=== PATIENT | female | born 1940 | race Caucasian/White ===

== ENCOUNTER → 2017-07-02 07:35 | Outpatient (CLI) | payer MEDICARE, SELFPAY ==
--- NOTE | 2017-07-02 07:39 | CT_ITS ---
CT heart w calcium score HISTORY 76 years : chest pain. & Heavy chest sensation COMPARISON: None Technique: All CT scans at this facility use one or more dose reduction techniques, viz.: automated exposure control; ma/kV adjustment per patient size (including targeted exams where dose is matched to indication; i.e. head) or iterative reconstruction technique. FINDINGS: Total Coronary calcium score is 4 indicating minimal plaque burden with low cardiovascular disease risk Specific Coronary artery Calcium scoring as follows\: left main = 0. LAD =4. Left circumflex = 0. RCA = 0. PDA = 0 Only very Limited images submitted of the chest for the calcium score. Calcification the tracheobronchial tree calcified right hilar nodes reflecting old granulomatous disease with calcified nodes subcarinal region reflecting site. Borderline is not cardiomegaly. IMPRESSION: Total coronary calcium score of 4 = low cardiovascular disease risk
--- NOTE | 2017-07-02 07:39 | CA_ITS ---
PROCEDURE: 2-D M-mode and color Doppler study INDICATIONS FOR THE TEST: Chest pain X COPD Heart Murmur Tobacco Smoking PalpitationsX Fatigue Syncope Edema Hypertension Diabetes Mellitus Rheumatic Fever SOB JENSEN Obesity Hyperlipidemia Family History HD Additional History ABN EKG PATIENT INFORMATION HEIGHT: 63 WEIGHT:125 GENDER: Female B/P:150/75 2-D/M-MODE INTERPRETATION: 2-D MEASUREMENTS OBSERVED VALUES IN CMS Right Ventricular Dimension (RVDd) 1.9 Interventricular Septum (Thickness)(IVsd) .8 Left Ventricular Internal Dimensions(LVIDd) 5.1 Left Ventricular Posterior Wall (Thickness)(LVPWd) .8 Aortic Root 2.2 Aortic Cusp Separation 1.4 Left Atrial Dimensions (LAD) 3.0 2D 1. Left atrium is mildly enlarged, left ventricle is normal size, there is mild qualitative concentric left ventricular hypertrophy, visually estimated ejection fraction 55% with no obvious regional wall motion abnormality. 2. The right atrium and right ventricle are normal size and contractility. 3. The aortic valve is minimally thickened and fibrosed. 4. The mitral and tricuspid valve leaflets are minimally thickened. 5. The pulmonic valve is poorly. 6. No significant pericardial effusion noted. DOPPLER INTERROGATION: Doppler interrogation of the aortic, mitral and tricuspid valvular presence of mild mitral and tricuspid regurgitation, tricuspid and jet velocity insufficient for acquisition of the right ventricular systolic pressure, grade 1 diastolic dysfunction seen with tissue Doppler evidence of raised left atrial pressure. CONCLUSION: 1. Mildly enlarged left atrium, normal left ventricular size, mild concentric left ventricular hypertrophy, visually estimated ejection fraction 55% with no obvious regional wall motion abnormality. Grade 1 diastolic dysfunction seen with tissue Doppler evidence of raised left atrial pressure. 2. Mild mitral and tricuspid regurgitation 3. No significant pericardial effusion noted.
== END ==
PROVIDERS: PCP Family Medicine; Visit Provider Internal Medicine Cardiovascular Disease
DX: R07.89 Other chest pain (principal); R00.2 Palpitations
CPT/HCPCS: 75571; 93306

== ENCOUNTER → 2017-07-08 07:13 | Outpatient (CLI) | payer MEDICARE, SELFPAY ==
--- NOTE | 2017-07-08 07:14 | NM_ITS ---
History and Indications: Hypothyroidism, hypertension, shortness of breath and chest pain. Procedure: Patient exercised on Saran protocol 7 minutes, resting heart rate was 63 bpm resting blood pressure 168/73, with exercise maximum heart rate achieved was 1 37 bpm which is equal to 94% of the maximum predicted heart rate and a blood pressure was 192/90. Test was started due to shortness of breath and fatigue patient denied any complained of chest pain. Patient has good exercise capacity achieved 10.1mets of workload on treadmill, the blood pressure response to exercise was adequate. Electrocardiogram: Resting electrocardiogram showed sinus rhythm, with exercise occasional premature ventricular complexes seen, there is less than 1.[address] segment depression noted from the baseline EKG. The EKG portion of the exercise Myoview is negative for ischemia. Cardiac stress and resting SPECT images: Cardiac stress and resting SPECT images were obtained using technetium 99 Myoview 30.7 mCi at stress 10.6 mCi at rest. Gated SPECT further analysis of segmental wall motion and calculation of the ejection fraction also done. Cardiac stress and rest SPECT images show a mild fixed defect anteroseptally with normal contractility in the gated SPECT is likely secondary to soft tissue attenuation, no reversible ischemia seen. Computer derived ejection fraction is over 65% with no obvious regional wall motion abnormality, right ventricle is normal size and contractility. Conclusion: 1. The EKG portion of the exercise Myoview is negative for ischemia. Patient has good exercise capacity achieved 10.1mets of workload on treadmill, the blood pressure response to exercise was adequate, there was no exercise-induced chest discomfort. 2. No obvious scintigraphic evidence of reversible ischemia seen, computer derived ejection fraction is over C5 percent with no obvious regional wall motion abnormality, right ventricle is normal size and contractility. 3. Normal exercise Myoview study.
== END ==
PROVIDERS: PCP Family Medicine; Visit Provider Internal Medicine Cardiovascular Disease
DX: R07.89 Other chest pain (principal); R00.2 Palpitations; R94.31 Abnormal electrocardiogram [ECG] [EKG]; E78.4 Other hyperlipidemia; I10 Essential (primary) hypertension
CPT/HCPCS: 78452; 93017; A9502

== ENCOUNTER → 2018-02-16 14:42 | Outpatient (CLI) | payer MEDICARE, SELFPAY ==
--- NOTE | 2018-02-16 14:49 | NVE_ITS ---
Venous Exam Indications: 729.5 Pain in limb. IMPRESSIONS 1. No evidence of deep vein thrombosis involving the right lower extremity 2. Superficial vein thrombosis involving the right great saphenous vein Right lower extremity venous duplex evaluation. Doppler flow study including spectral analysis, color and aviles scale imaging. Location: Vascular laboratory. Patient status: Outpatient. CRITICAL FINDINGS - Reported to: Dr. Ozuna - Read back and verified. - 02/16/18 - 1515 - + [facility] Tables: Venous flow and imaging: + + + + Location Overall Flow properties + + + + Right common femoral Patent Normal phasicity; spontaneous; normal augmentation; compressible + + + + Right saphenofemoral Patent Compressible junction + + + + Right profunda femoral Patent Compressible + + + + Right femoral Patent Normal phasicity; spontaneous; normal augmentation; compressible + + + + Right greater saphenous Partially occluded Diminished phasicity; diminished spontaneity; diminished augmentation; partially compressible + + + + Right popliteal Patent Normal phasicity; spontaneous; normal augmentation; compressible + + + + Right posterior tibial Patent Compressible + + + + Right peroneal Patent Compressible + + + + Right gastrocnemius Patent Compressible + + + + Right soleal Patent Compressible + + + + (Report amended ) Electronically signed by: Azeem Weinstein [id number]
== END ==
PROVIDERS: PCP Family Medicine; Visit Provider Family Medicine
DX: M79.604 Pain in right leg (principal)
CPT/HCPCS: 93971

== ENCOUNTER → 2018-04-06 08:42 | Outpatient (CLI) | payer MEDICARE, SELFPAY ==
[2018-04-06 14:21] LABS: INR 2.41 (0.9-1.1); Prothrombin Time 24.2 seconds (9.4-11.8)
== END ==
PROVIDERS: PCP Family Medicine; Visit Provider Family Medicine
DX: Z51.81 Encounter for therapeutic drug level monitoring (principal); Z79.01 Long term (current) use of anticoagulants; I82.811 Embolism and thrombosis of superficial veins of right lower extremity
CPT/HCPCS: 36415; 85610

== ENCOUNTER → 2018-05-10 09:16 | Outpatient (CLI) | payer MEDICARE, SELFPAY ==
--- NOTE | 2018-05-10 09:21 | NVE_ITS ---
Venous Exam Indications: 729.5 Pain in limb. IMPRESSIONS 1. There is no evidence of significant Reflux. 2. No evidence of deep or superficial vein thrombosis involving the right lower extremity and left lower extremity Right lower extremity venous duplex evaluation. Doppler flow study including spectral analysis, color and aviles scale imaging. Location: Vascular laboratory. Patient status: Outpatient. Tables: Venous flow and imaging: + +-------+ + Location Overall Flow properties + +-------+ + Right common femoral Patent Normal phasicity; spontaneous; normal augmentation; compressible + +-------+ + Right saphenofemoral junction Patent Compressible + +-------+ + Right profunda femoral Patent Compressible + +-------+ + Right femoral Patent Normal phasicity; spontaneous; normal augmentation; compressible + +-------+ + Right greater saphenous Patent Normal phasicity; spontaneous; normal augmentation; compressible + +-------+ + Right popliteal Patent Normal phasicity; spontaneous; normal augmentation; compressible + +-------+ + Right posterior tibial Patent Compressible + +-------+ + Right peroneal Patent Compressible + +-------+ + Right gastrocnemius Patent Compressible + +-------+ + Right soleal Patent Compressible + +-------+ + (Report amended ) Electronically signed by: Azeem Weinstein [id number]
== END ==
PROVIDERS: PCP Family Medicine; Visit Provider Family Medicine
DX: I82.811 Embolism and thrombosis of superficial veins of right lower extremity (principal); M79.604 Pain in right leg
CPT/HCPCS: 93971

== ENCOUNTER → 2018-08-23 12:33 | Outpatient (POV) | payer MEDICARE, SELFPAY | PROVIDERS: Visit Provider Dermatology | DX: Z00.00 Encounter for general adult medical examination without abnormal findings (principal) ==

== ENCOUNTER → 2018-12-20 10:25 | Outpatient (CLI) | payer MEDICARE, SELFPAY ==
--- NOTE | 2018-12-20 10:33 | CA_ITS ---
APPROVED REPORT Right Lower Extremity Venous Study for DVT. 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 Indications Lower Extremity Pain: Right Vein Imaging CFV (R): compressive, spontaneous, phasic, augmentation SFJ (R): compressive, spontaneous, phasic, augmentation FEM (R): compressive, spontaneous, phasic, augmentation POP (R): compressive, spontaneous, phasic, augmentation DFV (R): compressive, spontaneous, phasic, augmentation PTV (R): compressive, spontaneous, phasic, augmentation GSV (R): compressive, spontaneous, phasic, augmentation SSV (R): compressive, spontaneous, phasic, augmentation Peroneals (R):compressive, spontaneous, phasic, augmentation GAS (R): compressive, spontaneous, phasic, augmentation Findings No evidence of DVT or superficial thrombophlebitis in the veins scanned of the right lower extremity. No valvular insufficiency demonstrated in the veins scanned of the right lower extremity. Conclusion No evidence of DVT or superficial thrombophlebitis in the veins scanned of the right lower extremity. Electronically signed by : Azeem Weinstein MD 12/20/2018 11:16:38
== END ==
PROVIDERS: PCP Family Medicine; Visit Provider Family Medicine
DX: M79.604 Pain in right leg (principal)
CPT/HCPCS: 93971

== ENCOUNTER → 2020-01-09 08:08 | Outpatient (POV) | payer MEDICARE, SELFPAY | PROVIDERS: Visit Provider Dermatology | DX: Z00.00 Encounter for general adult medical examination without abnormal findings (principal) ==

== ENCOUNTER → 2020-07-16 08:11 | Outpatient (POV) | payer MEDICARE, SELFPAY | PROVIDERS: Visit Provider Dermatology | DX: Z00.00 Encounter for general adult medical examination without abnormal findings (principal) ==

== ENCOUNTER → 2020-07-30 14:49 | Outpatient (CLI) | payer MEDICARE, SELFPAY ==
--- NOTE | 2020-07-30 14:57 | MR_ITS ---
PROCEDURE: MR LUMBAR SPINE WO CON CLINICAL INDICATION: SCIATICA, RIGHT SIDE Pain down rt leg. Pain in back for years. Pain just started down leg in the last 3 months. COMPARISON: No exams were available for comparison TECHNIQUE: Standard multiplanar multiecho sequences are performed without contrast. 3-D MIP and myelographic images are also rendered and reviewed FINDINGS: The spinal cord ends at the L1 level. L1-L2: Unremarkable. L2-L3: 2 mm anterolisthesis of L2 with minimal bulging disc and mild facet and ligamentum hypertrophy with mild bilateral lateral recess narrowing. L3-L4: 3 mm anterolisthesis of L3 with bulging disc along with facet and ligamentum hypertrophic change with mild bilateral lateral recess narrowing and bilateral foraminal narrowing. There is borderline canal stenosis. L4-5: 2 mm anterolisthesis of L4. Bulging disc with moderate to severe facet and ligamentum hypertrophic change causing canal stenosis with severe bilateral lateral recess narrowing and mild bilateral foraminal narrowing. L5-S1: Mild facet and ligamentum hypertrophy with mild bilateral foraminal narrowing. No extruded herniated disc. Tarlov cysts are present in the sacral area. IMPRESSION: 1. L2-L3: 2 mm anterolisthesis of L2 with minimal bulging disc and mild facet and ligamentum hypertrophy with mild bilateral lateral recess narrowing. 2. L3-L4: 3 mm anterolisthesis of L3 with bulging disc along with facet and ligamentum hypertrophic change with mild bilateral lateral recess narrowing and bilateral foraminal narrowing. There is borderline canal stenosis. 3. L4-5: 2 mm anterolisthesis of L4. Bulging disc with moderate to severe facet and ligamentum hypertrophic change causing canal stenosis with severe bilateral lateral recess narrowing and mild bilateral foraminal narrowing. 4. L5-S1: Mild facet and ligamentum hypertrophy with mild bilateral foraminal narrowing. 5. No extruded herniated disc. Dictated by: Azeem Weinstein MD 07/31/2020 10:22 Azeem Weinstein MD in [facility] 07/31/2020 10:22
== END ==
PROVIDERS: PCP Family Medicine; Visit Provider Family Medicine
DX: M54.31 Sciatica, right side (principal)
CPT/HCPCS: 72148; 76376

== ENCOUNTER → 2020-09-24 13:11 | Outpatient (POV) | payer MEDICARE, SELFPAY | PROVIDERS: Visit Provider Dermatology | DX: Z00.00 Encounter for general adult medical examination without abnormal findings (principal) ==

== ENCOUNTER 2020-10-23 09:00 | Outpatient (RCR) | payer MEDICARE, SELFPAY ==
--- NOTE | 2020-05-13 10:02 | HMH.PTOPEV ---
PT Outpatient Evaluation Rehab PT Outpatient Evaluation Start: 05/13/20 09:30 Freq: Status: Active Protocol: Document 05/13/20 09:30 PDESEROUX (Rec: 05/13/20 10:02 [email or web address] [id number]) Electronically Signed By Aden Leung, PT 05/13/20 09:30 Outpatient Therapy Subjective History Subjective History Pt. is a 79 year old female who presents to Outpatient PT clinic w/ complaints of constant and chronic RLE posterior buttock P! of insidious onset for one year now. Pt. also reports having intermittent RLE radicular symptoms. Pt. reports symptoms worsen w/ prolonged sitting from driving and reading. Pt. reports having some symptom relief w/ OTC Advil and standing. Pt. denies having an injection for current pathology and denies having recent diagnostic imaging. 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 Pt. denies having bowel/bladder dysfunction and denies symptoms into LLE. Current medications include Amlodipine and Synthroid. PMH includes GERD, Hypertension, Hypothyroidism, dental implants, and history of DVT( RLE). Chief Complaint Pain,Paresthesia,Weakness Symptom Type Ache,Sharp,Dull Symptoms Relieved By OTC Meds,Activity Symptoms Aggravated By Sitting,Bending/Stooping, Physical Activity,Twisting, Lifting Prior Functional Limitations None Current Functional Limitations Lifting,Housework,Desk Work/ Reading,Driving,Sleeping, Sitting,Recreation Activity, Bending/Stooping Symptom Description Constant but Variable Level of pain today (0-10) 6 Pain scale - at its best (0-10) 4 Pain scale - at its worst (0-10) 10 Lumbopelvic Eval Posture Thoracic Spine Posture Standing Position Neutral Lumbar Spine Posture Stand
== END 2020-10-23 11:03 | disposition home or self-care (01) ==
LOC: PT.CARL 09:00
PROVIDERS: PCP Family Medicine; Visit Provider Family Medicine
DX: M54.31 Sciatica, right side
CPT/HCPCS: 97110; 97140; 97163; 97164

== ENCOUNTER → 2020-12-03 08:42 | Outpatient (POV) | payer MEDICARE, SELFPAY | PROVIDERS: Visit Provider Dermatology | DX: Z00.00 Encounter for general adult medical examination without abnormal findings (principal) ==

== ENCOUNTER → 2021-05-06 08:07 | Outpatient (POV) | payer MEDICARE, SELFPAY | PROVIDERS: Visit Provider Dermatology | DX: Z00.00 Encounter for general adult medical examination without abnormal findings (principal) ==

== ENCOUNTER 2021-05-15 09:00 | Outpatient (RCR) | payer MEDICARE, SELFPAY ==
--- NOTE | 2021-04-23 11:29 | HMH.PTOPEV ---
PT Outpatient Evaluation Rehab PT Outpatient Evaluation Start: 04/23/21 09:03 Freq: Status: Active Protocol: Document 04/23/21 09:03 [email or web address] (Rec: 04/23/21 10:15 PDESEROUX [id number]) Electronically Signed By Aden Leung, PT 04/23/21 09:03 Outpatient Therapy Subjective History Subjective History Pt. is a 80 year old female who presents to [facility] Outpatient Physical Therapy Services for the initial evaluation this date(04/23/21) w/ c/o acute on chronic and constant lumbar/RLE/LLE ankle and ft. P!, weakness, and muscle spasms of traumatic onset 3 days ago after carrying boxes up stairs into the attic. Pt. reports symptoms were manageable w/ prior Physical Therapy and HEP until recent incident. Pt. reports continuing to have some symptom relief w/ lumbar rolls while sitting, stretches , and Charly extension w/ prior Physical Therapy. Pt. denies having any recent diagnostic imaging nor injections for current exacerbation of symptoms. Pt. reports current symptoms worsen w/ negotiating stairs, driving, and sitting. Pt. also c'd/o having a familia horse in her RLE calf for 30' minutes last night(04/22/21). Pt. also reports having a fall a couple of days ago where pt. reported injurying her L wrist and L ankle, denies having an recent diagnostic imaging. Pt. denies bowel/ bladder dysfunction nor saddle paresthesia. Current medications include Amlodipine and Synthroid. PMH includes GERD, Hypertension, Hypothyroidism, dental implants, and history of DVT( RLE). Chief Complaint Pain,Spasms,Gives out/Unstable
== END 2021-06-16 14:31 | disposition home or self-care (01) ==
LOC: PT.CARL 09:00
PROVIDERS: PCP Family Medicine; Visit Provider Family Medicine
DX: M54.31 Sciatica, right side (principal); M25.572 Pain in left ankle and joints of left foot
CPT/HCPCS: 97110; 97140; 97163

== ENCOUNTER 2021-05-16 08:47 | Emergency (ER) | payer MEDICARE, SELFPAY ==
--- NOTE | 2021-05-16 08:47 | ECG_ITS ---
APPROVED REPORT Exam: Resting ECG HR:74 bpm ECG Measurements Heart Rate 74 AXES WA 147 P 79 QRSd 97 QRS 81 QT 391 T 10 QTc 419 Conclusion SINUS RHYTHM POSSIBLE LEFT ATRIAL ENLARGEMENT [-0.1mV P-WAVE IN V1/V2] NONSPECIFIC ST & T-WAVE ABNORMALITY BORDERLINE ECG UNCONFIRMED REPORT Electronically signed by : Thomas Queen MD 05/16/2021 15:01:20
[2021-05-16 08:52] VITALS: BMI 21.0
--- NOTE | 2021-05-16 08:53 | XR_ITS ---
FINAL REPORT CLINICAL HISTORY: chest pain COMPARISON: June 16, 2017 FINDINGS: Two views of the chest were obtained. The heart size and pulmonary vascularity are within normal limits. The mediastinum is normal. There are new mild left lung base opacities consistent with atelectasis or pneumonia. There is a new small left pleural effusion. There is a calcified granuloma in the right lung. There is no pneumothorax. The bony thorax is intact. IMPRESSION: New mild left lung base opacities consistent with atelectasis or pneumonia. New small left pleural effusion. Reviewed, Interpreted and Dictated by Abraham Melendez III, MD Transcribed by Erin Tabor Authenticated by Abraham Melendez III, MD on 05/16/2021 09:53:[address] [facility]
[2021-05-16 08:54] VITALS: BP 197/99; PULSE 83; RESP 17; TEMP 36.8; O2SAT 98; BMI 21.0
[2021-05-16 09:05] LABS: Basophils # 0.1 K/mm3 (0-0.2); Basophils % 0.9 % (0.1-2.0); Eosinophils % 0.2 % (0.1-12.0); Hematocrit 46.6 % (37.0-47.0); Hemoglobin 14.8 g/dL (12.2-16.2); Lymphocytes # 0.7 K/mm3 (0.7-4.5); Lymphocytes % 8.8 % (10-50); Mean Corpuscular HGB Conc 31.7 g/dL (31.8-35.4); Mean Corpuscular Hemoglobin 31.2 pg (27.0-31.2); Mean Corpuscular Volume 98.4 fl (81-99); Mean Platelet Volume 8.5 fl (7.4-10.4); Monocytes # 0.5 K/mm3 (0.1-1.0); Monocytes % 5.7 % (1.7-9.3); Neutrophils % 84.4 % (37.0-80.0); Platelet Count 314 K/mm3 (142-424); Red Blood Count 4.73 M/mm3 (4.20-5.40); Red Cell Distribution Width 13.9 % (11.5-17.5); White Blood Count 8.3 K/mm3 (4.8-10.8)
[2021-05-16 09:10] LABS: Anion Gap 13.7 mEq/L (5-15); Blood Urea Nitrogen 12 mg/dl (7-17); Calcium 9.6 mg/dl (8.4-10.2); Carbon Dioxide 30 mmol/L (22.0-30.0); Chloride 101 mmol/L (98-107); Creatinine Clearance Estimated 38 mL/min (50-200); Estimated Glomerular Filt Rate 81 ml/min (>60); GFR (African American) 98 ML/MIN (>60); Glucose 132 mg/dl (74-100); Potassium 3.7 mmoL/L (3.5-5.1); Sodium 141 mmol/L (136-145)
--- NOTE | 2021-05-16 09:10 | HMH.EDCP ---
ED Disposition Clinical Impression: Pulmonary embolism Qualifiers: Pulmonary embolism type: single subsegmental (without acute cor pulmonale) Qualified Code(s): I26.93 - Single subsegmental pulmonary embolism without acute cor pulmonale Disposition: Home, Self-Care Condition on Discharge: Good Instructions: DI for Pulmonary Embolism Referrals: Thomas Campbell MD [Primary Care Provider] - - Critical Care Critical Care Time: No Attestation: On 05/16/21, the high probability of a clinically significant, sudden or life threatening deterioration of the following system(s) required my full and direct attention, intervention and personal management. The time I documented below is in addition to time spent performing reported procedures but includes the following listed in this critical care notation. Medical Decision Making - Medical Records Medical records reviewed: Yes: I reviewed the patient's medical records. - Anders Inquiry Pt receiving controlled substance: No Vital Signs: 05/16/21 08:54 05/16/21 09:30 05/16/21 10:30 Temperature 98.2 F Temperature Source Oral Pulse Rate 62 60 Pulse Rate [Left Radial] 83 Respiratory Rate 17 12 12 Blood Pressure 159/85 H 164/85 H Blood Pressure [Right Arm] 197/99 H Blood Pressure Mean 109 96 Blood Pressure Mean [Right Arm] 131 02 Sat by Pulse Oximetry 98 99 100 Oxygen Delivery Method Room Air 05/16/21 11:00 Temperature Temperature Source Pulse Rate 63 Pulse Rate [Left Radial] Respiratory Rate 13 Blood Pressure 160/82 H Blood Pressure [Right Arm] Blood Pressure Mean 108 Blood Pressure Mean [Right Arm] 02 Sat by Pulse Oximetry 98 Oxygen Delivery Method - Lab Data Lab Results 05/16/21 08:50: WBC 8.3, RBC 4.73, Hgb 14.8, Hct 46.6, MCV 98.4, MCH 31.2, MCHC 31.7 L, RDW 13.9, Plt Count 314, MPV 8.5, Neut % (Auto) 84.4 H, Lymph % (Auto) 8.8 L, Laporte % (Auto) 5.7, Eos % (Auto) 0.2, Baso % (Auto) 0.9, Neut # (Auto) 7.0, Lymph # (Auto) 0.7, Laporte # (Auto) 0.5, Eos # (Auto) 0.0, Baso # (Auto) 0.1 05/16/21 08:50: Sodium 141, Potassium 3.7, Chloride 101, Carbon Dioxide 30, Anion Gap 13.7, BUN 12, Creatinine 0.70, Estimated Creat Clear 38, Estimated GFR 81, Est GFR ( Amer) 98, Glucose 132 H, Calcium 9.6, Troponin I < 0.01 05/16/21 08:50: NT-Pro-B Natriuret Pep 100 Result diagrams: 05/16/21 08:50 05/16/21 08:50 Orders (Tests/Meds): ED MEDICATIONS Generic Name Dose Route Start Last Admin Trade Name Freq PRN Reason Stop Dose Admin Sodium Chloride 10 ml 05/16/21 08:53 Sodium Chloride 0.9% 10ml Flush Syringe IV 06/15/21 08:52 NEEDED PRN Maintain IV Site Discontinued Medications Generic Name Dose Route Start Last Admin Trade Name Freq PRN Reason Stop Dose Admin Aspirin 324 mg 05/16/21 08:53 05/16/21 08:59 Aspirin 81mg Chewable Tablet PO 05/16/21 08:54 324 mg ONCE ONE Administration Iopamidol 70 ml 05/16/21 10:02 05/16/21 10:09 Iopamidol-370 (76%);100ml Bottle IV 05/16/21 10:03 70 ml ONCE ONE Administration Sodium Chloride 40 ml 05/16/21 10:02 05/16/21 10:09 0.9 % Sodium Chloride 50 Ml Vial IV 05/16/21 10:03 40 ml ONCE ONE Administration Sodium Chloride 10 ml 05/16/21 10:02 05/16/21 10:09 Sodium Chloride 0.9% 10ml Syr (Rad Only) IV 05/16/21 10:03 10 ml ONCE ONE Administration ORDERS Category Date Time Status Troponin I Q3H Lab 05/16/21 12:00 Ordered Troponin I Q3H Lab 05/16/21 15:00 Ordered - Radiology Data #1 Image(s): Chest Image Reviewed: Yes I reviewed the patient's radiology results, Yes I reviewed the patient's radiology image, Yes I have reviewed radiologist's interpretation Small left pleural effusion - CT Data CT Scan: Chest Time Received: 11:[address] Reviewed: Yes: I have reviewed the patient's CT results, I have viewed the radiologist's interpretation Findings Narrative: IMPRESSION: Segmental pulmonary embolism in the medial right
[2021-05-16 09:29] LABS: Troponin I < 0.01 ng/ml (0.00-0.034)
[2021-05-16 09:30] VITALS: BP 159/85; PULSE 62; RESP 12; O2SAT 99
[2021-05-16 09:32] LABS: NT Pro Brain Natriuretic Pep. 100 pg/mL (0-450)
--- NOTE | 2021-05-16 09:36 | CT_ITS ---
FINAL REPORT TECHNIQUE: Then section axial CT images of the chest were obtained with contrast. Three-D reformatted images were also obtained.This study was performed with techniques to keep radiation doses as low as reasonably achievable (ALARA). Individualized dose reduction techniques using automated exposure control or adjustment of mA and/or kV according to the patient''s size were employed. CLINICAL HISTORY: Left side chest pain when breathing. no trauma COMPARISON: Chest radiographs dated May 16, 2021 and June 16, 2017 FINDINGS: There is a segmental pulmonary embolism in the medial right lower lobe well visualized on series 1001, image 45. Overall clot burden is low. No other pulmonary embolisms are identified. There is no evidence of thoracic aortic aneurysm or dissection. There is no evidence of mediastinal or hilar mass or adenopathy. There is mild nonspecific thickening of the esophageal wall favoring inflammatory. There is a small left pleural effusion and mild atelectasis at the left lung base. There are calcified granulomas in the right lower lobe. Limited images of the upper abdomen reveals a less than 1 cm cyst in the right hepatic lobe. IMPRESSION: Segmental pulmonary embolism in the medial right lower lobe with an overall low clot burden. Small left pleural effusion and mild atelectasis at the left lung base. This finding was reported to the ordering physician, Mina Little at the time of interpretation. Reviewed, Interpreted and Dictated by Abraham Melendez III, MD Transcribed by Zara De Jesus Authenticated by Abraham Melendez III, MD on 05/16/2021 11:00:59 AM [facility]
[2021-05-16 10:30] VITALS: BP 164/85; PULSE 60; RESP 12; O2SAT 100
--- NOTE | 2021-05-16 10:50 | PC.NURSE ---
radiologist called to speak to
[2021-05-16 11:00] VITALS: BP 160/82; PULSE 63; RESP 13; O2SAT 98
--- NOTE | 2021-05-16 11:11 | PC.NURSE ---
calling dr raphael for
[2021-05-16 11:38] VITALS: BP 161/84; PULSE 62; RESP 17; TEMP 36.8; O2SAT 99
== END 2021-05-16 11:40 | disposition home or self-care (01) ==
PROVIDERS: Emergency Provider Emergency Medicine; PCP Family Medicine
DX: I26.93 Single subsegmental thrombotic pulmonary embolism without acute cor pulmonale (principal); I10 Essential (primary) hypertension; E03.9 Hypothyroidism, unspecified; K21.9 Gastro-esophageal reflux disease without esophagitis; Z79.899 Other long term (current) drug therapy
CPT/HCPCS: 71046; 71275; 80048; 83880; 84484; 85025; 93005; 99284; Q9967

== ENCOUNTER → 2021-05-20 08:01 | Outpatient (POV) | payer MEDICARE, SELFPAY | PROVIDERS: Visit Provider Dermatology | DX: Z00.00 Encounter for general adult medical examination without abnormal findings (principal) ==

== ENCOUNTER → 2021-05-21 09:09 | Outpatient (CLI) | payer MEDICARE, SELFPAY ==
--- NOTE | 2021-05-21 | CA_ITS ---
FINAL REPORT CLINICAL HISTORY: .PE 05/16/21 PT STARTED ON XARELTO. FINDINGS: Color Doppler, duplex Doppler and compression sonography of the bilateral lower extremities was performed. There is no evidence of deep venous thrombosis from the level of the groin to the calf. The deep veins are patent and compressible. IMPRESSION: No evidence of deep venous thrombosis bilateral lower extremities. Reviewed, Interpreted and Dictated by Abraham Melendez III, MD Transcribed by Zara De Jesus Authenticated by Abraham Melendez III, MD on 05/21/2021 10:29:[address] [facility]
== END ==
PROVIDERS: PCP Family Medicine; Visit Provider Family Medicine
DX: M79.605 Pain in left leg (principal); M79.604 Pain in right leg; Z86.711 Personal history of pulmonary embolism
CPT/HCPCS: 93970

== ENCOUNTER → 2021-06-17 10:19 | Outpatient (CLI) | payer MEDICARE, SELFPAY ==
--- NOTE | 2021-06-17 10:24 | XR_ITS ---
FINAL REPORT CLINICAL HISTORY: PAIN, FOREIGN BODY, PIECE OFGLASS IN HEEL X 1 MOS FINDINGS: Three views of the right foot were obtained. There is no acute fracture or dislocation. There is an osseous structure lateral to the base of the 5th proximal phalanx that may be due to old trauma. The joint spaces are intact. There is a 2 mm linear density in the soft tissues inferior to the calcaneus that may be related to a small foreign body. IMPRESSION: 2 mm questionable foreign body inferior to the calcaneus. Reviewed, Interpreted and Dictated by Abdon Schroeder MD Transcribed by Anthony Underwood Authenticated by Abdon Schroeder MD on 06/17/2021 11:38:46 AM [facility]
[2021-06-17 11:47] LABS: Basophils # 0.1 K/mm3 (0-0.2); Eosinophils # 0.1 K/mm3 (0.0-0.4); Eosinophils % 1.9 % (0.1-12.0); Hematocrit 44.8 % (37.0-47.0); Hemoglobin 14.4 g/dL (12.2-16.2); Lymphocytes % 18.4 % (10-50); Mean Corpuscular HGB Conc 32.2 g/dL (31.8-35.4); Mean Corpuscular Hemoglobin 30.7 pg (27.0-31.2); Mean Corpuscular Volume 95.3 fl (81-99); Mean Platelet Volume 8.3 fl (7.4-10.4); Monocytes # 0.4 K/mm3 (0.1-1.0); Monocytes % 6.7 % (1.7-9.3); Neutrophils # 3.7 K/mm3 (1.8-7.8); Neutrophils % 71.9 % (37.0-80.0); Platelet Count 286 K/mm3 (142-424); Red Cell Distribution Width 13.9 % (11.5-17.5); White Blood Count 5.2 K/mm3 (4.8-10.8)
[2021-06-17 12:50] LABS: Activated Partial Thrombo Time 26.2 seconds (22.8-30.6); INR 0.95 (0.9-1.1); Prothrombin Time 10.8 seconds (10.1-12.5)
[2021-06-19 03:37] LABS: Lupus Reflex Interpretation Comment: (.); PTT-LA 31.7 sec (0.0-51.9); Protein C Functional 143 % (73-180); Protein S Functional 45 % (63-140); dRVVT 37.3 sec (0.0-47.0)
== END ==
PROVIDERS: PCP Internal Medicine Adolescent Medicine; Referring Provider Podiatrist; Visit Provider Nurse Practitioner Family
DX: M79.671 Pain in right foot (principal); I26.93 Single subsegmental thrombotic pulmonary embolism without acute cor pulmonale; Z86.718 Personal history of other venous thrombosis and embolism
CPT/HCPCS: 36415; 73630; 81241; 85025; 85302; 85306; 85610; 85613; 85730

== ENCOUNTER → 2021-07-03 12:37 | Outpatient (CLI) | payer MEDICARE, SELFPAY ==
--- NOTE | 2021-07-03 12:38 | US_ITS ---
FINAL REPORT CLINICAL HISTORY: foreign body right foot FINDINGS: Sonographic images of the right heel were obtained. There is an echogenic linear focus in the region of the clinical abnormality measuring 1.5 cm in length concerning for a foreign body. IMPRESSION: Findings concerning for a foreign body at the area of interest. Reviewed, Interpreted and Dictated by Abdon Schroeder MD Transcribed by Enriqueta Vásquez Authenticated by Abdon Schroeder MD on 07/03/2021 04:37:48 PM [facility]
== END ==
PROVIDERS: PCP Internal Medicine Adolescent Medicine; Visit Provider Podiatrist
DX: M79.5 Residual foreign body in soft tissue (principal)
CPT/HCPCS: 76882

== ENCOUNTER → 2021-08-14 08:21 | Outpatient (CLI) | payer MEDICARE, SELFPAY ==
[2021-08-14 15:02] LABS: Thyroid Stimulating Hormone 4.29 uIU/mL (0.465-4.68)
== END ==
PROVIDERS: Visit Provider Internal Medicine Adolescent Medicine
DX: E03.9 Hypothyroidism, unspecified (principal)
CPT/HCPCS: 36415; 84443

== ENCOUNTER 2021-08-20 10:23 | Emergency (ER) | payer MEDICARE, SELFPAY ==
--- NOTE | 2021-08-20 10:22 | ECG_ITS ---
APPROVED REPORT Exam: Resting ECG HR:70 bpm ECG Measurements Heart Rate 70 AXES OH 140 P 54 QRSd 97 QRS 84 QT 393 T 51 QTc 414 Conclusion SINUS RHYTHM MINIMAL ST DEPRESSION [0.025+ mV ST DEPRESSION] BORDERLINE ECG UNCONFIRMED REPORT Electronically signed by : Thomas Queen MD 08/22/2021 17:58:21
--- NOTE | 2021-08-20 10:24 | HMH.EDGENADL ---
ED Disposition Clinical Impression: Atypical chest pain Disposition: Home, Self-Care Condition on Discharge: Good Instructions: DI for Atypical Chest Pain Additional Instructions: Additional instructions for CHEST PAIN: See your physician as soon as possible for further evaluation. Return immediately if worsening chest pain, vomiting, shortness of breath, fever, coughing of blood. Referrals: Noman Javier MD [Primary Care Provider] - - Critical Care Critical Care Time: No Attestation: On , the high probability of a clinically significant, sudden or life threatening deterioration of the following system(s) required my full and direct attention, intervention and personal management. The time I documented below is in addition to time spent performing reported procedures but includes the following listed in this critical care notation. Medical Decision Making - Anders Inquiry Pt receiving controlled substance: No Vital Signs: 08/20/21 10:26 08/20/21 11:20 Temperature 98.2 F Temperature Source Oral Pulse Rate 63 Pulse Rate [Left Radial] 75 Respiratory Rate 17 Blood Pressure 152/80 H Blood Pressure [Right Arm] 158/84 H Blood Pressure Mean 104 Blood Pressure Mean [Right Arm] 108 02 Sat by Pulse Oximetry 98 98 Oxygen Delivery Method Room Air Room Air - Lab Data Lab Results 08/20/21 10:25: WBC 6.3, RBC 4.56, Hgb 14.2, Hct 42.5, MCV 93.3, MCH 31.1, MCHC 33.4, RDW 14.1, Plt Count 281, MPV 8.5, Neut % (Auto) 78.2, Lymph % (Auto) 13.2, Phillips % (Auto) 6.1, Eos % (Auto) 0.7, Baso % (Auto) 1.9, Neut # (Auto) 4.9, Lymph # (Auto) 0.8, Phillips # (Auto) 0.4, Eos # (Auto) 0.0, Baso # (Auto) 0.1 08/20/21 10:25: Sodium 140, Potassium 4.0, Chloride 105, Carbon Dioxide 30, Anion Gap 9.0, BUN 15, Creatinine 0.70, Estimated Creat Clear 38, Estimated GFR 81, Est GFR ( Amer) 98, Glucose 120 H, Calcium 9.8, Troponin I < 0.01 Result diagrams: 08/20/21 10:25 08/20/21 10:25 Orders (Tests/Meds): ED MEDICATIONS Generic Name Dose Route Start Last Admin Trade Name Freq PRN Reason Stop Dose Admin Sodium Chloride 10 ml 08/20/21 10:46 Sodium Chloride 0.9% 10ml Flush Syringe IV 09/19/21 10:45 NEEDED PRN Maintain IV Site Discontinued Medications Generic Name Dose Route Start Last Admin Trade Name Freq PRN Reason Stop Dose Admin Iopamidol 70 ml 08/20/21 12:14 08/20/21 12:15 Iopamidol-370 (76%);100ml Bottle IV 08/20/21 12:15 70 ml ONCE ONE Administration Sodium Chloride 10 ml 08/20/21 12:14 08/20/21 12:15 Sodium Chloride 0.9% 10ml Syr (Rad Only) IV 08/20/21 12:15 10 ml ONCE ONE Administration Sodium Chloride 50 ml 08/20/21 12:14 08/20/21 12:15 0.9 % Sodium Chloride 50 Ml Vial IV 08/20/21 12:15 50 ml ONCE ONE Administration ORDERS Category Date Time Status Troponin I Q3H Lab 08/20/21 14:00 Ordered Troponin I Q3H Lab 08/20/21 17:00 Ordered - Radiology Data #1 Image(s): Chest Image Reviewed: Yes I have reviewed radiologist's interpretation Procedure(s): XR chest 2V Accession Number(s): [id number] cc: Noman Javier MD; Abraham Melendez MD~ FINAL REPORT CLINICAL HISTORY: chest pain, pt states that she had a previous blood clot in May 2021 on the left side of her lungs, and that she is experiencing similar pain but on the right side. COMPARISON: 05/16/2021 FINDINGS: TWO-VIEW CHEST The heart size is normal. The mediastinum is normal. The lungs are clear. There is no pneumothorax. IMPRESSION: No acute cardiopulmonary process. Reviewed, Interpreted and Dictated by Abraham Melendez III, MD Transcribed by Enriqueta Vásquez Authenticated and [facility] - CT Data CT Scan: Chest (cta) Time Received: 12:[address] Reviewed: Yes: I have viewed the radiologist's interpretation Findings Narrative: Procedure(s): CT angio chest PE protocol A
[2021-08-20 10:26] VITALS: BP 158/84; PULSE 75; RESP 17; TEMP 36.8; O2SAT 98; BMI 21.0
--- NOTE | 2021-08-20 10:46 | XR_ITS ---
FINAL REPORT CLINICAL HISTORY: chest pain, pt states that she had a previous blood clot in May 2021 on the left side of her lungs, and that she is experiencing similar pain but on the right side. COMPARISON: 05/16/2021 FINDINGS: TWO-VIEW CHEST The heart size is normal. The mediastinum is normal. The lungs are clear. There is no pneumothorax. IMPRESSION: No acute cardiopulmonary process. Reviewed, Interpreted and Dictated by Abraham Melendez III, MD Transcribed by Enriqueta Vásquez Authenticated and [facility]
[2021-08-20 10:53] LABS: Basophils # 0.1 K/mm3 (0-0.2); Basophils % 1.9 % (0.1-2.0); Eosinophils % 0.7 % (0.1-12.0); Hematocrit 42.5 % (37.0-47.0); Hemoglobin 14.2 g/dL (12.2-16.2); Lymphocytes # 0.8 K/mm3 (0.7-4.5); Lymphocytes % 13.2 % (10-50); Mean Corpuscular HGB Conc 33.4 g/dL (31.8-35.4); Mean Corpuscular Hemoglobin 31.1 pg (27.0-31.2); Mean Corpuscular Volume 93.3 fl (81-99); Mean Platelet Volume 8.5 fl (7.4-10.4); Monocytes # 0.4 K/mm3 (0.1-1.0); Monocytes % 6.1 % (1.7-9.3); Neutrophils # 4.9 K/mm3 (1.8-7.8); Neutrophils % 78.2 % (37.0-80.0); Platelet Count 281 K/mm3 (142-424); Red Blood Count 4.56 M/mm3 (4.20-5.40); Red Cell Distribution Width 14.1 % (11.5-17.5); White Blood Count 6.3 K/mm3 (4.8-10.8)
--- NOTE | 2021-08-20 10:53 | PC.NURSE ---
pt to radiology by wheelchair with dispensary technician
[2021-08-20 10:54] LABS: Chloride 105 mmol/L (98-107); Sodium 140 mmol/L (136-145)
[2021-08-20 10:57] LABS: Blood Urea Nitrogen 15 mg/dl (7-17); Calcium 9.8 mg/dl (8.4-10.2); Carbon Dioxide 30 mmol/L (22.0-30.0); Creatinine Clearance Estimated 38 mL/min (50-200); Estimated Glomerular Filt Rate 81 ml/min (>60); GFR (African American) 98 ML/MIN (>60); Glucose 120 mg/dl (74-100)
--- NOTE | 2021-08-20 11:00 | PC.NURSE ---
pt returned from radiology by wheelchair with orthodontic technician
[2021-08-20 11:17] LABS: Troponin I < 0.01 ng/ml (0.00-0.034)
[2021-08-20 11:20] VITALS: BP 152/80; PULSE 63; O2SAT 98
--- NOTE | 2021-08-20 11:33 | CT_ITS ---
FINAL REPORT TECHNIQUE: Then section axial CT images of the chest were obtained with contrast. Three-D reformatted images were also obtained.This study was performed with techniques to keep radiation doses as low as reasonably achievable (ALARA). Individualized dose reduction techniques using automated exposure control or adjustment of mA and/or kV according to the patient''s size were employed. CLINICAL HISTORY: R sided CP, H/O PE, off xarelto for 5 days COMPARISON: May 16, 2021 FINDINGS: The previously identified segmental pulmonary embolism is no longer seen. There is no evidence of pulmonary embolism. There is no evidence of thoracic aortic aneurysm or dissection. There is no evidence of mediastinal or hilar mass or adenopathy. There is no evidence of pulmonary mass or suspicious nodule. There is mild atelectasis. A calcified granuloma is seen in the right lower lobe. Limited images of the upper abdomen are unremarkable. IMPRESSION: 1. Interval resolution of previous pulmonary embolism. 2. No mass or localized inflammatory process. Reviewed, Interpreted and Dictated by Abraham Melendez III, MD Transcribed by Anthony Underwood Authenticated and . [facility]
--- NOTE | 2021-08-20 11:55 | PC.NURSE ---
Martita RN at speaking with patient regarding her complaining of sudden CP to mobile sales technician. Pt to CT by wheelchair
--- NOTE | 2021-08-20 12:54 | PC.NURSE ---
speaking to dr biggs
[2021-08-20 13:08] VITALS: BP 177/100; PULSE 78; RESP 16; TEMP 36.6; O2SAT 98
== END 2021-08-20 13:11 | disposition home or self-care (01) ==
PROVIDERS: Emergency Provider Emergency Medicine; PCP Internal Medicine Adolescent Medicine
DX: R07.89 Other chest pain (principal); Z86.711 Personal history of pulmonary embolism
CPT/HCPCS: 71046; 71275; 80048; 84484; 85025; 93005; 99284; Q9967

== ENCOUNTER → 2021-08-22 08:52 | Outpatient (CLI) | payer MEDICARE, SELFPAY ==
[2021-08-24 14:17] LABS: Protein S Functional 42 % (63-140)
== END ==
PROVIDERS: PCP Internal Medicine Adolescent Medicine; Visit Provider Internal Medicine Medical Oncology
DX: D64.9 Anemia, unspecified (principal)
CPT/HCPCS: 36415; 85306

== ENCOUNTER → 2021-10-07 08:34 | Outpatient (POV) | payer MEDICARE, SELFPAY | PROVIDERS: Visit Provider Dermatology | DX: Z00.00 Encounter for general adult medical examination without abnormal findings (principal) ==

== ENCOUNTER → 2021-11-11 08:06 | Outpatient (POV) | payer MEDICARE, SELFPAY | PROVIDERS: Visit Provider Dermatology | DX: Z00.00 Encounter for general adult medical examination without abnormal findings (principal) ==

== ENCOUNTER → 2022-01-13 08:02 | Outpatient (POV) | payer MEDICARE, SELFPAY | PROVIDERS: Visit Provider Dermatology | DX: Z00.00 Encounter for general adult medical examination without abnormal findings (principal) ==

== ENCOUNTER → 2022-01-20 07:57 | Outpatient (POV) | payer MEDICARE, SELFPAY | PROVIDERS: Visit Provider Dermatology | DX: Z00.00 Encounter for general adult medical examination without abnormal findings (principal) ==

== ENCOUNTER → 2022-01-27 08:45 | Outpatient (POV) | payer MEDICARE, SELFPAY | PROVIDERS: Visit Provider Dermatology | DX: Z00.00 Encounter for general adult medical examination without abnormal findings (principal) ==

== ENCOUNTER → 2022-03-24 14:49 | Outpatient (POV) | payer MEDICARE, SELFPAY | PROVIDERS: Visit Provider Dermatology | DX: Z00.00 Encounter for general adult medical examination without abnormal findings (principal) ==

== ENCOUNTER 2022-04-24 03:08 | Emergency (ER) | payer MEDICARE, SELFPAY ==
[2022-04-24] VITALS (13 sets, daily range): BP systolic 124–165; BP diastolic 69–94; PULSE 60–78; RESP 16–20; TEMP 36.1–36.7; O2SAT 96–100; BMI 29.9; BMI 21.0
--- NOTE | 2022-04-24 03:22 | CT_ITS ---
PROCEDURE INFORMATION: Exam: CT Abdomen And Pelvis With Contrast Exam date and time: 04/24/2022 4:07 AM Age: 81 years old Clinical indication: Fever and nausea and vomiting; Additional info: Fever, n/v/d TECHNIQUE: Imaging protocol: Computed tomography of the abdomen and pelvis with contrast. Radiation optimization: All CT scans at this facility use at least one of these dose optimization techniques: automated exposure control; mA and/or kV adjustment per patient size (includes targeted exams where dose is matched to clinical indication); or iterative reconstruction. Contrast material: ISOVUE; Contrast volume: 75 ml; Contrast route: IV; Other protocol: This patient has received 3 known CTs and 0 known cardiac nuclear medicine studies in the 12 months prior to the current study. COMPARISON: CT ANGIO CHEST PE PROTOCOL 08/20/2021 11:47 AM FINDINGS: Liver: Normal. No mass. Gallbladder and bile ducts: Normal. No calcified stones. No ductal dilation. Pancreas: Normal. No ductal dilation. Spleen: Normal. No splenomegaly. Adrenal glands: Normal. No mass. Kidneys and ureters: Ptosis of the right kidney. Stomach and bowel: Sigmoid diverticulosis. Appendix: No evidence of appendicitis. Intraperitoneal space: Unremarkable. No free air. No significant fluid collection. Vasculature: Unremarkable. No abdominal aortic aneurysm. Lymph nodes: Unremarkable. No enlarged lymph nodes. Urinary bladder: Bladder is moderately distended. Reproductive: Prior hysterectomy. Bones/joints: Unremarkable. No acute fracture. Soft tissues: Unremarkable. IMPRESSION: No acute process noted. Diverticulosis without diverticulitis. No evidence of bowel obstruction or other acute process.
--- NOTE | 2022-04-24 03:25 | CT_ITS ---
PROCEDURE INFORMATION: Exam: CT Head Without Contrast Exam date and time: 04/24/2022 4:04 AM Age: 81 years old Clinical indication: Other: Vertigo; Additional info: Vertigo for 2 days with n/v/d TECHNIQUE: Imaging protocol: Computed tomography of the head without contrast. Radiation optimization: All CT scans at this facility use at least one of these dose optimization techniques: automated exposure control; mA and/or kV adjustment per patient size (includes targeted exams where dose is matched to clinical indication); or iterative reconstruction. Other protocol: This patient has received 3 known CTs and 0 known cardiac nuclear medicine studies in the 12 months prior to the current study. COMPARISON: No relevant prior studies available. FINDINGS: Brain: There is diffuse prominence of the cerebral sulci, cisterns, and ventricles consistent with atrophy. No intra or extra-axial fluid collections are noted. No mass or mass effect is seen. Periventricular white matter hypoattenuation is seen consistent with small vessel chronic ischemic changes. Cerebral ventricles: No ventriculomegaly. Paranasal sinuses: Visualized sinuses are unremarkable. No fluid levels. Mastoid air cells: Visualized mastoid air cells are well aerated. Bones/joints: Unremarkable. No acute fracture. Soft tissues: Unremarkable. IMPRESSION: No acute process noted.
[2022-04-24 03:39] LABS: Basophils # 0.1 K/mm3 (0-0.2); Basophils % 0.6 % (0.1-2.0); Eosinophils # 0.1 K/mm3 (0.0-0.4); Eosinophils % 0.7 % (0.1-12.0); Hematocrit 42.9 % (37.0-47.0); Hemoglobin 14.4 g/dL (12.2-16.2); Lymphocytes # 1.4 K/mm3 (0.7-4.5); Mean Corpuscular HGB Conc 33.6 g/dL (31.8-35.4); Mean Corpuscular Hemoglobin 29.9 pg (27.0-31.2); Mean Platelet Volume 8.5 fl (7.4-10.4); Monocytes # 0.6 K/mm3 (0.1-1.0); Monocytes % 4.7 % (1.7-9.3); Neutrophils # 9.5 K/mm3 (1.8-7.8); Neutrophils % 81.9 % (37.0-80.0); Platelet Count 352 K/mm3 (142-424); Red Blood Count 4.82 M/mm3 (4.20-5.40); White Blood Count 11.6 K/mm3 (4.8-10.8)
[2022-04-24 03:44] LABS: Alanine Aminotransferase 31 U/L (12-78); Albumin/Globulin Ratio 1.7 (1.1-1.8); Alkaline Phosphatase 101 U/L (38-126); Amylase 100 U/L (30-110); Aspartate Amino Transferase 40 U/L (14-36); Bilirubin,Total 0.9 mg/dl (0.2-1.3); Blood Urea Nitrogen 14 mg/dl (7-17); Calcium 9.6 mg/dl (8.4-10.2); Carbon Dioxide 23 mmol/L (22.0-30.0); Chloride 104 mmol/L (98-107); Creatinine Clearance Estimated 38 mL/min (50-200); Estimated Glomerular Filt Rate 60 ml/min (>60); GFR (African American) 73 ML/MIN (>60); Globulin 2.9 g/dL (1.3-3.2); Glucose 222 mg/dl (74-100); Lipase 146 U/L (23-300); Sodium 139 mmol/L (136-145); Total Protein,Serum 7.9 g/dl (6.3-8.2)
--- NOTE | 2022-04-24 03:49 | PC.NURSE ---
Critical potassium of 3.0 called by Jonelle in lab. notified.
[2022-04-24 03:58] LABS: Troponin I < 0.01 ng/ml (0.00-0.034)
--- NOTE | 2022-04-24 04:01 | PC.NURSE ---
pt taken to ct scan via stretcher
[2022-04-24 04:12] LABS: Hemoglobin A1C 5.2 % (4.0-6.0)
--- NOTE | 2022-04-24 04:22 | PC.NURSE ---
pt back to room, placed on bed smith for urine sample per pt request
[2022-04-24 04:29] LABS: Microscopic, Urine URINE MICROSCOPIC (MICROSCOPIC)
[2022-04-24 04:32] LABS: Appearance,Urine CLEAR (Clear); Bilirubin,Urine Negative (Negative); Blood, Urine Negative (Negative); Color,Urine YELLOW (Yellow); Glucose,Urine (UA) TRACE (Negative); Ketones,Urine 1+ (Negative); Leukocyte Esterase,Urine TRACE (Negative); Nitrate,Urine Negative (Negative); PH,Urine 7.5 (5.0-8.5); Protein,Urine Negative (Negative); Specific Gravity, Urine 1.015 (1.005-1.030); Urobilinogen,Urine 0.2 EU/dl (0.2)
[2022-04-24 04:45] LABS: T4 (Thyroxine) 9.8 ug/dl (5.53-11.0)
[2022-04-24 04:46] LABS: Bacteria,Urine 1+ /lpf
[2022-04-24 04:59] LABS: Thyroid Stimulating Hormone 7.24 uIU/mL (0.465-4.68)
[2022-04-24 05:14] LABS: Ethyl Alcohol < 10 mg/dl (0-10)
--- NOTE | 2022-04-24 06:43 | HMH.EDNVD ---
Discharge Plan Disposition Patient Disposition: Home, Self-Care Prescriptions Prescriptions: New ondansetron HCl 4 mg Tablet 4 mg PO Q8H PRN (Reason: Nausea) Qty: 20 0RF No Action levothyroxine [Synthroid] 50 mcg tablet 50 mcg PO DAILY amlodipine 5 mg tablet 5 mg PO HS Xarelto 10 mg tablet 10 mg PO DAILY Referrals Follow up/Referrals: Thomas Queen MD [Primary Care Provider] - See instructions Clinical Impressions Clinical Impression: Gastroenteritis, Acute hypokalemia Instructions Patient Instructions: DI for Diarrhea and Traveler's Diarrhea -- Adult, DI for Nausea -- Adult Discharge ED Provider: Boni (ED),Yogesh Chavira Nausea/Vomiting/Diarrhea HPI General Chief complaint: Nausea/Vomiting/Diarrhea Stated complaint: Fever,V/D Time Seen by Provider: 04/24/22 03:15 Mode of Arrival: Wheelchair Source of Information: Patient and Medical Record Limitations: No Limitations Description of Symptoms (Recalled from ER Triage Doc. by RN): Pt arrives pov in a wheelchair. States that she woke up at 0100 with vertigo and nausea/vomiting and diarrhea. Patient states that she saw her pcp yesterday and was ordered labs but no scans. Pt denies any injury. History of Present Illness HPI Narrative: pt with nausea and diarrhea and has dizzyness over the last 2 days - no focal neuro sx complaint: nausea, vomiting and diarrhea Onset (ago): day(s) Associated Abdominal Pain: Yes Location of pain: diffuse Severity: moderate Associated symptoms: denies other symptoms Related Data Home Medications Medication Instructions Recorded Confirmed levothyroxine 50 mcg tablet 50 mcg PO DAILY hypothyroid 07/02/21 04/24/22 (Synthroid) amlodipine 5 mg tablet 5 mg PO HS High blood pressure 04/24/22 04/24/22 rivaroxaban 10 mg tablet (Xarelto) 10 mg PO DAILY dvts 04/24/22 04/24/22 Previous Rx's Medication Instructions Recorded ondansetron HCl 4 mg tablet 4 mg PO Q8H PRN Nausea #20 tabs 04/24/22 Allergies Allergy/AdvReac Type Severity Reaction Status Date / Time No Known Allergies Allergy Verified 09/11/21 08:54 [facility] Disclaimer: The information contained in this section may have been updated after the patient was seen, as this information can be updated by other users. Social History Smoking Status: Never smoker alcohol intake: current substance use type: denies use current occupational status: retired Travel in the last 8 weeks: None household members: spouse housing: house ROS Obtained: Yes All systems reviewed & no additional complaints except as documented Physical Exam General General appearance: alert Head Head exam: normocephalic Eye Eye exam: Present PERRL and EOMI; Absent scleral icterus or nystagmus ENT ENT exam: Present mucous membranes moist Neck Neck exam: Present trachea midline Respiratory Respiratory exam: Absent respiratory distress Cardiovascular Cardiovascular exam: Present regular rate and systolic murmur Abdominal Exam Abdominal exam: Present soft and tenderness; Absent guarding Abdominal tenderness: Present epigastrium and mild Extremities Exam Extremities exam: Absent joint swelling Neurological Exam Neurological exam: Present alert, oriented X3 and CN II-XII intact; Absent motor sensory deficit Skin Skin exam: Absent rash Medical Decision Making Medical Records Medical records reviewed: Yes I reviewed the patient's medical records. Anders Inquiry Pt receiving controlled substance: No Vital Signs: 04/24/22 03:26 04/24/22 07:18 04/24/22 03:30 Temperature 97 F L Temperature Source Oral Pulse Rate 68 69 Pulse Rate [Apical] 70 Respiratory Rate 18 16 20 Blood Pressure 126/72 164/90 H Blood Pressure [Right Arm] 160/94 H Blood Pressure Mean 114 Blood Pressure Mean [Right Arm] 116 Blood Pressure Source [Right Arm] Automatic Cuff Blood Pressure Position [Right Arm] Sitting 02 Sat by Pulse Oximetry 100 98 1
[2022-04-24 06:50] LABS: Lactic Acid 2.3 mmol/L (0.7-2.1)
[2022-04-24 07:02] LABS: Troponin I < 0.01 ng/ml (0.00-0.034)
[2022-04-24 07:10] LABS: Coronavirus 19, PCR Not Detected (NotDetected); Influenza A, PCR Not Detected (NotDetected); Influenza B, PCR Not Detected (NotDetected)
--- NOTE | 2022-04-24 07:17 | PC.NURSE ---
Assumed pt care. No complaints at this time. Pt updated on plan of care. Pt reports improvement.
--- NOTE | 2022-04-24 07:23 | PC.NURSE ---
Return from CT. Improvement with pain interventions. 5/10 right flank radiating to right groin. MD at bedside discussing CT results.
--- NOTE | 2022-04-24 07:34 | PC.NURSE ---
verbal order for ondansetron from MD at this time
[2022-04-24 09:35] LABS: Troponin I < 0.01 ng/ml (0.00-0.034)
[2022-04-24 10:36] LABS: Reflex Lactic Add Lactic Reflex
== END 2022-04-24 09:29 | disposition home or self-care (01) ==
PROVIDERS: Emergency Provider Emergency Medicine; PCP Internal Medicine Adolescent Medicine
DX: K52.9 Noninfective gastroenteritis and colitis, unspecified (principal); E87.6 Hypokalemia; Z20.822 Contact with and (suspected) exposure to COVID-19
CPT/HCPCS: 36415; 70450; 74177; 80053; 81001; 82150; 83036; 83605; 83690; 84436; 84443; 84484; 85025; 96361; 96374; 96375; 96376; 99285; C9803; J2405; Q9967; U0003; U0005

== ENCOUNTER 2022-06-14 08:57 | Emergency (ER) | payer MEDICARE, SELFPAY ==
[2022-06-14] VITALS (7 sets, daily range): BP systolic 153–191; BP diastolic 79–103; PULSE 62–99; RESP 13–18; TEMP 36.1–36.6; O2SAT 99–100; BMI 28.3
--- NOTE | 2022-06-14 09:15 | CT_ITS ---
PROCEDURE INFORMATION: Exam: CT Head Without Contrast Exam date and time: 06/14/2022 9:34 AM Age: 81 years old Clinical indication: Dizziness; Additional info: Vomiting, dizziness TECHNIQUE: Imaging protocol: Computed tomography of the head without contrast. Radiation optimization: All CT scans at this facility use at least one of these dose optimization techniques: automated exposure control; mA and/or kV adjustment per patient size (includes targeted exams where dose is matched to clinical indication); or iterative reconstruction. REPORTING DATA: Count of CT and Cardiac NM exams in prior 12 months: This patient has received 3 known CTs and 0 known cardiac nuclear medicine studies in the 12 months prior to the current study. COMPARISON: CT HEAD/BRAIN WO CON 04/24/2022 4:04 AM FINDINGS: Brain: Patchy hypoattenuation in the periventricular and subcortical white matter, consistent with chronic small vessel ischemia. No CT evidence of acute ischemia. No acute hemorrhage. No mass effect. Cerebral ventricles: No ventriculomegaly. Paranasal sinuses: Visualized sinuses are unremarkable. No fluid levels. Mastoid air cells: Visualized mastoid air cells are well aerated. Bones/joints: Unremarkable. No acute fracture. Soft tissues: Unremarkable. IMPRESSION: No acute intracranial abnormality. Please note that MRI is more sensitive for early changes of acute ischemia.
--- NOTE | 2022-06-14 09:18 | PC.NURSE ---
Pt assisted to bathroom with episode of diarrhea. +nausea and dizziness. Pt assisted into gown and back into stretcher. MD at bedside. Pt placed on telemetry. Labs collected. EKG completed. Warm blanket provided.
--- NOTE | 2022-06-14 09:20 | ECG_ITS ---
APPROVED REPORT Exam: Resting ECG HR:80 bpm ECG Measurements Heart Rate 80 AXES DE 165 P 66 QRSd 100 QRS 20 QT 419 T -31 QTc 454 Conclusion SINUS RHYTHM WITH OCCASIONAL VENTRICULAR PREMATURE COMPLEXES POSSIBLE LEFT ATRIAL ENLARGEMENT [-0.1mV P-WAVE IN V1/V2] ST DEVIATION AND MODERATE T-WAVE ABNORMALITY, CONSIDER INFERIOR ISCHEMIA [-0.1+ mV T-WAVE IN II/aVF] ABNORMAL ECG UNCONFIRMED REPORT Electronically signed by : Thomas Queen MD 06/14/2022 15:54:44
[2022-06-14 09:24] LABS: Basophils # 0.1 K/mm3 (0-0.2); Basophils % 0.6 % (0.1-2.0); Chloride 102 mmol/L (98-107); Eosinophils # 0.1 K/mm3 (0.0-0.4); Eosinophils % 1.5 % (0.1-12.0); Hematocrit 46.4 % (37.0-47.0); Hemoglobin 14.9 g/dL (12.2-16.2); Lymphocytes # 1.7 K/mm3 (0.7-4.5); Lymphocytes % 19.7 % (10-50); Mean Corpuscular HGB Conc 32.3 g/dL (31.8-35.4); Mean Corpuscular Hemoglobin 29.8 pg (27.0-31.2); Mean Corpuscular Volume 92.4 fl (81-99); Mean Platelet Volume 8.5 fl (7.4-10.4); Monocytes # 0.3 K/mm3 (0.1-1.0); Monocytes % 3.9 % (1.7-9.3); Neutrophils # 6.2 K/mm3 (1.8-7.8); Neutrophils % 74.4 % (37.0-80.0); Platelet Count 347 K/mm3 (142-424); Red Blood Count 5.01 M/mm3 (4.20-5.40); White Blood Count 8.4 K/mm3 (4.8-10.8)
[2022-06-14 09:25] LABS: Potassium 3.4 mmoL/L (3.5-5.1); Sodium 139 mmol/L (136-145)
[2022-06-14 09:27] LABS: Alanine Aminotransferase 24 U/L (12-78); Alkaline Phosphatase 93 U/L (38-126); Anion Gap 17.4 mEq/L (5-15); Aspartate Amino Transferase 38 U/L (14-36); Bilirubin,Total 0.8 mg/dl (0.2-1.3); Blood Urea Nitrogen 10 mg/dl (7-17); Carbon Dioxide 23 mmol/L (22.0-30.0); Creatinine Clearance Estimated 52 mL/min (50-200); Estimated Glomerular Filt Rate 81 ml/min (>60); GFR (African American) 98 ML/MIN (>60)
[2022-06-14 09:28] LABS: Albumin/Globulin Ratio 1.6 (1.1-1.8); Calcium 9.4 mg/dl (8.4-10.2); Globulin 3.1 g/dL (1.3-3.2); Glucose 165 mg/dl (74-100); Magnesium 2.1 mg/dl (1.6-2.3); Total Protein,Serum 8.1 g/dl (6.3-8.2)
--- NOTE | 2022-06-14 09:29 | PC.NURSE ---
pt to CT
[2022-06-14 09:31] LABS: Coronavirus 19, PCR Not Detected (NotDetected); Influenza A, PCR Not Detected (NotDetected); Influenza B, PCR Not Detected (NotDetected)
--- NOTE | 2022-06-14 09:40 | PC.NURSE ---
pt return from CT
--- NOTE | 2022-06-14 09:40 | HMH.EDGENADL ---
Discharge Plan Disposition Patient Disposition: Home, Self-Care Prescriptions Prescriptions: New ondansetron 4 mg tablet,disintegrating 4 mg PO Q8H 3 Days Qty: 9 0RF Rx Instructions: As needed for nausea and vomiting. Do not combine with other antinausea medications No Action levothyroxine [Synthroid] 50 mcg tablet 50 mcg PO DAILY amlodipine 5 mg tablet 5 mg PO HS Xarelto 10 mg tablet 10 mg PO DAILY ondansetron HCl 4 mg Tablet 4 mg PO Q8H PRN (Reason: Nausea) Qty: 20 0RF Referrals Follow up/Referrals: Provider,Referral, MD [Primary Care Provider] - See instructions Activity Restrictions/Add. Instructions Additional Instructions/Restrictions: At this time was felt you are safe to be discharged home. If new or worsening symptoms please do not hesitate to return to the emergency department. Please call and schedule an appointment with your family doctor late this coming week for continued evaluation if symptoms persist. Please take your medication as prescribed. Clinical Impressions Clinical Impression: Vomiting, Chronic hypokalemia, Dizziness Instructions Patient Instructions: DI for Vomiting -- Adult, DI for Dizziness-Nonvertigo Discharge ED Provider: Jorge Hernandez General Adult HPI General Chief complaint: Nausea/Vomiting/Diarrhea Stated complaint: htn Time Seen by Provider: 06/14/22 09:40 Mode of Arrival: EMS Source of Information: Patient and EMS Limitations: No Limitations Description of Symptoms (Recalled from ER Triage Doc. by RN): Pt awoke with dizziness, n/v, and high blood pressure this morning. 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 History of Present Illness HPI narrative: Patient is a 81-year-old female with past medical history of high blood pressure, hypothyroidism who presents to the emergency department for evaluation of multiple complaints. Patient states that approximately 2 weeks ago she had an episode of dizziness which brought her to an emergency room where she stayed for some time and was ultimately discharged. Symptoms at that time included dizziness, vomiting, diarrhea. At approximately 7 AM this morning patient had similar onset of symptoms after checking her blood pressure which was reportedly 180 systolic. She had nonspecific dizziness, vomiting, nonbloody diarrhea. She called 911 and presents here for further evaluation. Patient denies vision changes, chest pain, cough, other symptoms at this time. Related Data Home Medications Medication Instructions Recorded Confirmed levothyroxine 50 mcg tablet 50 mcg PO DAILY hypothyroid 07/02/21 04/24/22 (Synthroid) amlodipine 5 mg tablet 5 mg PO HS High blood pressure 04/24/22 04/24/22 rivaroxaban 10 mg tablet (Xarelto) 10 mg PO DAILY dvts 04/24/22 04/24/22 Previous Rx's Medication Instructions Recorded ondansetron HCl 4 mg tablet 4 mg PO Q8H PRN Nausea #20 tabs 04/24/22 ondansetron 4 mg disintegrating 4 mg PO Q8H 3 days #9 tabs 06/14/22 tablet Allergies Allergy/AdvReac Type Severity Reaction Status Date / Time No Known Allergies Allergy Verified 09/11/21 08:54 [facility] Disclaimer: The information contained in this section may have been updated after the patient was seen, as this information can be updated by other users. Social History Smoking Status: Never smoker alcohol intake: current substance use type: denies use current occupational status: retired Travel in the last 8 weeks: None household members: spouse housing: house ROS Obtained: Yes Systems reviewed as appropriate & no additional complaints except as documented Physical Exam General General appearance: alert and other (Intermittently retching without vomiting in bed) Head Head exam: atraumatic and normocephalic Eye Eye exam: Present PERRL and EOMI ENT ENT exam: Present mucous membranes moist Neck Neck exam: Present normal inspection Chest Chest inspection: Present normal inspection and symmetric
--- NOTE | 2022-06-14 09:43 | PC.NURSE ---
Son at bedside. Son updated on plan of care.
--- NOTE | 2022-06-14 10:02 | PC.NURSE ---
RN and MD at bedside updating plan of care.
[2022-06-14 10:34] LABS: Free T4 (Free Thyroxine) 1.53 ng/dl (0.78-2.19)
[2022-06-14 10:45] LABS: Microscopic, Urine URINE MICROSCOPIC (MICROSCOPIC)
[2022-06-14 10:48] LABS: Appearance,Urine CLEAR (Clear); Bilirubin,Urine Negative (Negative); Blood, Urine Negative (Negative); Color,Urine YELLOW (Yellow); Glucose,Urine (UA) TRACE (Negative); Ketones,Urine 1+ (Negative); Leukocyte Esterase,Urine Negative (Negative); Nitrate,Urine Negative (Negative); Protein,Urine Negative (Negative); Specific Gravity, Urine 1.015 (1.005-1.030); Urobilinogen,Urine 0.2 EU/dl (0.2)
[2022-06-14 11:03] LABS: WBC,Urine Occasional #/hpf (0-3)
[2022-06-14 11:04] LABS: Bacteria,Urine Trace /lpf; Squamous Epithelial Cell,Urine Occasional #/hpf (0-5)
--- NOTE | 2022-06-14 11:19 | PC.NURSE ---
Pt updated on plan of care. Warm blanket provided.
== END 2022-06-14 12:03 | disposition home or self-care (01) ==
PROVIDERS: Emergency Provider Emergency Medicine
DX: R11.10 Vomiting, unspecified (principal); E87.6 Hypokalemia; R42 Dizziness and giddiness; I10 Essential (primary) hypertension; R94.31 Abnormal electrocardiogram [ECG] [EKG]
CPT/HCPCS: 70450; 80053; 81001; 83735; 84439; 84443; 85025; 93005; 96361; 96374; 99285; C9803; J2405; U0003; U0005

== ENCOUNTER → 2022-06-23 15:51 | Outpatient (CLI) | payer MEDICARE, SELFPAY ==
--- NOTE | 2022-06-23 16:02 | MR_ITS ---
PROCEDURE INFORMATION: Exam: MR Head Without Contrast Exam date and time: 06/23/2022 3:56 PM Age: 81 years old Clinical indication: Dizziness; Additional info: Vertigo , dizziness. Passing out. TECHNIQUE: Imaging protocol: Magnetic resonance imaging of the head without contrast. COMPARISON: CT HEAD/BRAIN WO CON 06/14/2022 9:34 AM FINDINGS: Brain: No acute infarct. No hemorrhage. Stable involutional changes of the brain. No mass effect. Cerebral ventricles: Stable ventricular size. No ventriculomegaly. Bones/joints: Unremarkable. Paranasal sinuses: Normal as visualized. No acute sinusitis. Mastoid air cells: Normal as visualized. No mastoid effusion. Orbital cavities: Unremarkable. Soft tissues: Unremarkable. IMPRESSION: No acute intracranial abnormality.
--- NOTE | 2022-06-23 16:02 | MR_ITS ---
PROCEDURE INFORMATION: Exam: MRA Head Without Contrast; Venography Exam date and time: 06/23/2022 3:56 PM Age: 81 years old Clinical indication: Dizziness and giddiness; Additional info: Dizziness. Passing out. Vertigo. TECHNIQUE: Imaging protocol: Magnetic resonance angiography of the head without contrast. Eygf-hm-txmbiq (TOF) technique was utilized for this exam. Exam focused on the veins. COMPARISON: 1. CT HEAD/BRAIN WO CON 06/14/2022 9:34 AM FINDINGS: Superior sagittal sinus: Patent. Straight sinus: Patent. Transverse sinuses: Patent. Sigmoid sinuses: Patent. Internal jugular veins: Visualized segment patent. IMPRESSION: No venous thrombus.
== END ==
PROVIDERS: PCP Internal Medicine Adolescent Medicine; Visit Provider Internal Medicine Adolescent Medicine
DX: R42 Dizziness and giddiness (principal); H93.12 Tinnitus, left ear; D68.59 Other primary thrombophilia
CPT/HCPCS: 70544; 70551

== ENCOUNTER → 2022-08-11 15:06 | Outpatient (CLI) | payer MEDICARE, SELFPAY ==
[2022-08-11 16:58] LABS: Free T4 (Free Thyroxine) 1.02 ng/dl (0.78-2.19)
== END ==
PROVIDERS: PCP Internal Medicine Adolescent Medicine; Visit Provider Nurse Practitioner
DX: E03.9 Hypothyroidism, unspecified (principal)
CPT/HCPCS: 36415; 84439; 84443

== ENCOUNTER 2022-08-26 08:53 | Outpatient (RCR) | payer MEDICARE, SELFPAY ==
--- NOTE | 2022-08-26 09:54 | HMH.PTOPEV ---
PT Outpatient Evaluation Rehab PT Outpatient Evaluation Start: 08/26/22 08:59 Freq: Status: Active Protocol: Document 08/26/22 08:59 PDESEROUX (Rec: 08/26/22 09:54 PDESEROUX [id number]) E-signed By Aden Leung, PT Outpatient Therapy Subjective History Subjective History Pt. is a 81 year old female who presents to [facility] Out[facility] Therapy Services in [place] for the initial evaluation this date() w/ c/o subacute and intermittent dizziness, hypertension, vomit, and diarrhea of insidious onset in June and May. Pt. reports having a history of light symptoms of vertigo, however, states the exacerbations in June and May were severe. Recent diagnostic imaging(MRI) negative per pt. report. Pt. reports taking Meclizine and Ondansetron when symptoms are provoked. Pt. denies specific activities nor positions that provoke current complaint of symptoms, states symptoms are intermittent. Pt. reports having symptom relief w/ prescribed medication. Pt. RTMD in 3 months. Current medications include medication listed above, Xarelto, Synthroid, and Amlodipine. PMH includes DVTs, Meniere's disease, GERD, Hypertension, vertigo, and Tinnitus. Chief Complaint Other Symptom Type Other Symptoms Relieved By Prescription Meds Symptoms Aggravated By Standing,Bending/Stooping, Twisting Prior Functional Limitations None Current Functional Limitations Standing,Sitting,Recreation Activity,Bending/Stooping Symptom Description Intermittent Level of pain today (0-10) 0 Pain scale - at its best (0-10) 0 Pain scale - at its worst (0-10) 0 Balance Eval Subjective Hx of Complaint Comment dizziness, nausea, vomit, hypertension, diarrhea Chief Complaint vertigo
--- NOTE | 2022-08-26 09:55 | HMH.PTOPEV ---
PT Outpatient Evaluation Rehab PT Outpatient Evaluation Start: 08/26/22 08:59 Freq: Status: Active Protocol: Document 08/26/22 08:59 PDESEROUX (Rec: 08/26/22 09:54 [email or web address] [id number]) E-signed By Aden Leung, PT Outpatient Therapy Subjective History Subjective History Pt. is a 81 year old female who presents to [facility] Outpatient Physical Therapy Services in [place] for the initial evaluation this date() w/ c/o subacute and intermittent dizziness, hypertension, vomit, and diarrhea of insidious onset in June and May. Pt. reports having a history of light symptoms of vertigo, however, states the exacerbations in June and May were severe. Recent diagnostic imaging(MRI) negative per pt. report. Pt. reports taking Meclizine and Ondansetron when symptoms are provoked. Pt. denies specific activities nor positions that provoke current complaint of symptoms, states symptoms are intermittent. Pt. reports having symptom relief w/ prescribed medication. Pt. RTMD in 3 months. Current medications include medication listed above, Xarelto, Synthroid, and Amlodipine. PMH includes DVTs, Meniere's disease, GERD, Hypertension, vertigo, and Tinnitus. Chief Complaint Other Symptom Type Other Symptoms Relieved By Prescription Meds Symptoms Aggravated By Standing,Bending/Stooping, Twisting Prior Functional Limitations None Current Functional Limitations Standing,Sitting,Recreation Activity,Bending/Stooping Symptom Description Intermittent Level of pain today (0-10) 0 Pain scale - at its best (0-10) 0 Pain scale - at its worst (0-10) 0 Balance Eval Subjective Hx of Complaint Comment dizziness, nausea, vomit, hypertension, diarrhea Chief Complaint vertigo
== END 2022-10-02 10:30 | disposition home or self-care (01) ==
LOC: PT 08:53
PROVIDERS: PCP Internal Medicine Adolescent Medicine; Visit Provider Nurse Practitioner Family
DX: R42 Dizziness and giddiness (principal)
CPT/HCPCS: 97163

== ENCOUNTER → 2022-09-16 08:51 | Outpatient (POV) | payer MEDICARE, SELFPAY | PROVIDERS: Visit Provider Specialist/Technologist | DX: Z00.00 Encounter for general adult medical examination without abnormal findings (principal) ==

== ENCOUNTER → 2022-09-24 13:11 | Outpatient (POV) | payer MEDICARE, SELFPAY | PROVIDERS: Visit Provider Specialist/Technologist | DX: Z00.00 Encounter for general adult medical examination without abnormal findings (principal) ==

== ENCOUNTER → 2022-10-27 08:45 | Outpatient (POV) | payer MEDICARE, SELFPAY | PROVIDERS: Visit Provider Dermatology | DX: Z00.00 Encounter for general adult medical examination without abnormal findings (principal) ==

== ENCOUNTER 2023-01-18 07:49 | Emergency (ER) | payer MEDICARE, SELFPAY ==
[2023-01-18 07:49] VITALS: BP 182/96; PULSE 94; RESP 15; TEMP 36.4; O2SAT 98; BMI 19.9
--- NOTE | 2023-01-18 08:23 | HMH.EDGENADL ---
Discharge Plan Disposition Patient Disposition: Home, Self-Care Chief Complaint: Anxiety Prescriptions Prescriptions: No Action levothyroxine [Synthroid] 50 mcg tablet 50 mcg PO DAILY amlodipine 2.5 mg tablet 2.5 mg PO DAILY simethicone [Mylanta Gas] 125 mg tablet,chewable 125 mg PO QD-BID PRN Xarelto 10 mg tablet 10 mg PO DAILY Referrals Follow up/Referrals: Thomas Queen MD [Primary Care Provider] - See instructions Activity Restrictions/Add. Instructions Additional Instructions/Restrictions: Call your family doctor to establish care for this visit to the emergency department and schedule follow-up within 48 hours to ensure improvement. If you have any worsening of your condition or any other concerning signs or symptoms, return to the emergency department or your primary care doctor for further evaluation. Continue taking Xarelto as prescribed Clinical Impressions Clinical Impression: Acute pain of right lower extremity Discharge ED Provider: Quintin Bonilla General Adult HPI General Chief complaint: Anxiety Stated complaint: possible blood clot in Rt leg Time Seen by Provider: 01/18/23 07:51 Mode of Arrival: Ambulatory Source of Information: Patient Limitations: No Limitations Description of Symptoms (Recalled from ER Triage Doc. by RN): c/o different size bumps in her right leg and she is scared that it could be a blood clot. States that when you touch them they are tender, She has hx PE and in right leg. 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 Patient states that she started having bumps on her leg that she noticed yesterday and medial thigh where her previous blood clot was, came to the emergency department for evaluation. No outward swelling, redness, but tender to palpation. No trauma to the area, patient has been active, no recent surgeries, trauma, prolonged immobilization, or any other risk factors. Has not missed any doses of Xarelto. Related Data Home Medications Medication Instructions Recorded Confirmed levothyroxine 50 mcg tablet 50 mcg PO DAILY hypothyroid 07/02/21 09/16/22 (Synthroid) rivaroxaban 10 mg tablet (Xarelto) 10 mg PO DAILY dvts 04/24/22 09/16/22 amlodipine 2.5 mg tablet 2.5 mg PO DAILY 08/11/22 09/16/22 simethicone 125 mg chewable tablet 125 mg PO QD-BID PRN 08/11/22 09/16/22 (Mylanta Gas) Allergies Allergy/AdvReac Type Severity Reaction Status Date / Time No Known Allergies Allergy Verified 09/16/22 08:47 [facility] Disclaimer: The information contained in this section may have been updated after the patient was seen, as this information can be updated by other users. Medical History (Updated 01/18/23 @ 08:37 by Quintin Bonilla MD) Dysfunction of eustachian tube SNHL (sensorineural hearing loss) Tinnitus Social History Smoking Status: Never smoker alcohol intake: current substance use type: denies use current occupational status: retired Travel in the last 8 weeks: None household members: spouse housing: house ROS Obtained: Yes All systems reviewed & no additional complaints except as documented Physical Exam General General appearance: alert and in no apparent distress Respiratory Respiratory exam: Absent respiratory distress Cardiovascular Cardiovascular exam: Present regular rate and normal rhythm Extremities Exam Extremities exam: Present other (Tenderness medial aspect of right thigh about 10 cm above the knee. No palpable cord, erythema, or outward signs of DVT. Small knots, appear to be adipose tissue underneath the skin.) Neurological Exam Neurological exam: Present alert and oriented X3 Medical Decision Making Medical Records Medical records reviewed: Yes I reviewed the patient's medical records. Anders Crespo Pt r
[2023-01-18 08:45] VITALS: BP 169/91; PULSE 76; RESP 16; TEMP 36.4; O2SAT 98
== END 2023-01-18 08:46 | disposition home or self-care (01) ==
PROVIDERS: Emergency Provider Emergency Medicine; PCP Internal Medicine Adolescent Medicine
DX: M79.661 Pain in right lower leg (principal); Z86.718 Personal history of other venous thrombosis and embolism; Z79.01 Long term (current) use of anticoagulants
CPT/HCPCS: 99284

== ENCOUNTER 2023-03-23 12:04 | Outpatient (POV) | payer MEDICARE, SELFPAY | END 2023-03-23 23:59 | disposition home or self-care (01) | LOC: SC 12:05 | PROVIDERS: PCP Internal Medicine Adolescent Medicine; Visit Provider Dermatology | DX: Z00.00 Encounter for general adult medical examination without abnormal findings (principal) ==

== ENCOUNTER 2023-12-29 09:00 | Outpatient (RCR) | payer MEDICARE, SELFPAY ==
--- NOTE | 2023-11-29 15:47 | HMH.PTOPEV ---
PT Outpatient Evaluation Rehab PT Outpatient Evaluation Start: 11/29/23 14:56 Freq: Status: Active Protocol: Document 11/29/23 14:56 PDESEROUX (Rec: 11/29/23 15:46 [email or web address] [id number]) E-signed By Aden Leung, PT Outpatient Therapy Subjective History Subjective History Pt. is a 83 year old female who presents to [facility] Outpatient Physical Therapy Services in [place] for the initial evaluation this date(11/29/23) w/ c/o acute and intermittent LLE knee P!, clicking, and weakness of insidious onset for a month. Pt. denies trauma as onset of symptoms. Pt. reports she's been working in her garden more regularly including kneeling on her knees and digging in the dirt. Pt. reports having difficulty w/ kneeling on her knees to garden secondary to c/o P!. Pt . also reports the LLE knee will give out intermittently when she ambulates. Pt. also vocalizes a clicking when she ambulates that causes symptomatic P!. Pt. is limited in her standing and ambulatory tasks d/t P!. Pt. denies having any imaging nor injection for current complaint. Pt. denies having any restrictions at this time. Pt. does not have a return date to her MD at this time. Current medications include Xarelto, Synthroid, Amlodipine . PMH includes Sciatica, hx. of DVTs, Hyperthyroidism, and Hypertension. New diagnosis of cancer in past 12 No months? Chief Complaint Pain,Stiff,Clicks,Gives out/ Unstable,Weakness Symptom Type Ache,Throb,Dull,Other Symptoms Relieved By Rest/Positioning,Ice,Brace/ Support,OTC Meds Symptoms Aggravated By Bending/Stooping,Physical Activity,Twisting,Walking Prior Functional Limitations None Current Functional Limitations Standing,Squatting,Recreation Activity,Walking,Stairs, Bending/Stooping Symptom Description Intermittent,Activity Dependent Level of pain today (0-10) 0 Pain scale - at its best (0-10) 0 Pain scale - at its worst (0-10) 6 Hip/Knee Eval Gait Observation General Gait Pattern Observation Antalgic Gait,Shuffling Step, Decrease Weight Bear (L), Decrease Stride Lngth (R) Assistive Device Assistive Devices None / NA Palpation Tenderness left Knee Palpation Finding Tenderness Knee Palpation Overall Comment grade 3 +TTP to medial/ superior/lateral patella borders,quad/patella tendo MMT Hip Flexion Strength Grade 4- Good- Hip Abduction Strength Grade 4- Good- Hip Adduction Strength Grade 4- Good- Hip Extension Strength Grade 4- Good- Gluteus Jacob Strength Grade 4- Good- Hip External Rotation Strength Grade 4- Good- Hip Internal Rotation Strength Grade 4- Good- Knee Extension Strength Grade 4- Good- Knee Flexion Strength Grade 4- Good- Knee Extensors Muscle Tone Description Severe Hypertonicity Knee Flexors Muscle Tone Description Severe Hypertonicity Hip Extensors Muscle Tone Description Severe Hypertonicity Hip Flexors Muscle Tone Description Severe Hypertonicity ROM Knee Extension Active Range of Motion ( +3 degrees) Knee Extension Passive Range of Motion ( +1 degrees) Knee Flexion Active Range of Motion ( 112 degrees) Knee Flexion Passive Range of Motion ( 121 degrees) Knee ROM Limitations Soft Tissue Tightness,Muscle Weakness,Pain Special Tests Hip Araceli Test Positive Left Hip Piriformis Test Negative Left Sciatic Nerve Tension Test Negative Left Silas Test Positive Knee Anterior Drawer Test Negative Left Knee Rider Test Positive Left Knee Posterior Sag ([place] Drawer) Test Negative Left Knee Valgus Stress Test Negative Left Knee Varus Stress Test Negative Left Knee Bro Test Negative Left Patellar Tilt Test Positive Left Outpatient Therapy Assessment Impairments Problems/Impairmments Palpation Tenderness,Impaired Range of Motion,Impaired Strength,Impaired Endurance, Impaired Gait Pattern,Impaired Walking,Impaired Standing, Impaired Stair Climbing, Impaired Incline Stepping, Impaired Stepping on Uneven Surface,Impaired Squatting, Impaired Recreational Activities,Impaired Work Activities,Subjective C/O Pain ,Impaired Self Care/Self Management Prognosis Rehab Potential Good Comment w/ HEP compliancy Clinical Impression Consistent with Diagnosis Yes Consistent with L knee PFPS Short Term Goals Number of Weeks 2 Decreased Palpation Tenderness Yes: grade 1-2 +TTP to TTP assessment above Decrease Subjective C/O Pain Yes: worse:07/15 Patient to be Ind w/ HEP Yes Cheese Processor Goals Number of Weeks 4-6 Decreased Palpation Tenderness Yes: grade 1 + TTP to TTP assessment above Increase Range of Motion Yes: LLE knee A/PROM WNL grossly w/o difficulty Increase Strength Yes: LLE hip/knee MMT scores 4 +/5 w/o difficulty Improve Gait Pattern without Assistive Yes Device Increase Ability to Walk Yes Increase Ability to Stand Yes Improve Ability to Climb Stairs Yes Improve Incline Stepping Ability Yes Improve Ability to Step on Uneven Yes Surfaces Return to Recreational Activities Yes: gardening w/o difficulty Improve LEFI Score Yes Decrease Subjective C/O Pain Yes: worse:-04/17 Patient to be Ind w/ Advanced HEP Yes Outpatient Therapy Plan of Care Treatment Plan May Include Therapeutic Exercise Including Home Yes Exercise Program Manual Therapy Techniques Yes Neuromuscular Re-education Yes Therapeutic Activities to Return to Yes Previous Functional/Work Level Gait Training Yes ADL/Self Care Education Yes Dry Needling Yes Thermal Modalities Yes Electrical Stimulation Yes Ultrasound/Phonophoresis Yes Iontophoresis Yes Vasopneumatic Compression Pump Yes Massage Yes Eval/Re-Eval Yes Frequency Times per week 1-2 Duration Number of Weeks 4-6 Addendums This patient is a candidate for social No or vocational rehab? Patient/Guardian verbally acknowledges Yes understanding of treatment program and consents to further treatment? Patient/Guardian verbally acknowledges Yes understanding of diagnosis, prognosis and goals for treatment? Eval Complexity PT Charges 54473 - Low Complexity Shoulder/Elbow Eval Shoulder Objective Measurements Elbow Objective Measurements PHYSICIAN CERTIFICATION: I certify the specified therapy services for Peggy Mcbride are required, authorized, and reviewed every 30 days.
== END 2024-01-18 15:43 | disposition home or self-care (01) ==
LOC: PT 09:00
PROVIDERS: Visit Provider Nurse Practitioner Family
DX: M25.562 Pain in left knee (principal)
CPT/HCPCS: 97110; 97112; 97163; 97530

== ENCOUNTER 2024-01-09 09:14 | Emergency (ER) | payer MEDICARE, SELFPAY ==
[2024-01-09 09:30] VITALS: BP 158/87; PULSE 98; RESP 18; TEMP 36.6; O2SAT 97; BMI 20.5
[2024-01-09 09:36] LABS: Apearance,Urine Clear (Clear); Color,Urine Red (Yellow); PH,Urine 5.5 (5.0-8.5)
[2024-01-09 09:37] LABS: Glucose,Urine (UA) Negative (Negative); Ketones,Urine 15 (Negative); Protein,Urine 4+ (Negative)
[2024-01-09 09:38] LABS: Bilirubin,Urine 3+ (Negative); Blood, Urine 4+ (Negative)
[2024-01-09 09:39] LABS: UTC Leukocyte Esterase,Urine 3+ (Negative); UTC Nitrate,Urine Positive (Negative); Urobilinogen,Urine 1 EU/dl (0.2)
--- NOTE | 2024-01-09 09:45 | EXP.UTC ---
Discharge Plan Disposition Patient Disposition: Home, Self-Care Condition: Good Prescriptions Prescriptions: New phenazopyridine [Pyridium] 200 mg tablet 200 mg PO Q8H 2 Days Qty: 6 0RF nitrofurantoin monohyd/m-cryst [Macrobid] 100 mg Capsule 100 mg PO BID Qty: 10 0RF Rx Instructions: must administer with a meal/food No Action levothyroxine [Synthroid] 50 mcg tablet 50 mcg PO DAILY amlodipine 2.5 mg tablet 2.5 mg PO DAILY esomeprazole magnesium 20 mg capsule,delayed release(DR/EC) 20 mg PO DAILY Xarelto 10 mg tablet 10 mg PO DAILY Referrals Follow up/Referrals: Thomas Queen MD [Primary Care Provider] - See instructions Activity Restrictions/Add. Instructions Additional Instructions/Restrictions: Drink plenty of fluids. Take tylenol or ibuprofen for pain or fever. Take the medications as directed. Follow up with your regular doctor. GO TO THE ER FOR ANY WORSENING SYMPTOMS The pyridium will make your urine turn orange, this is an expected side effect. It will stain your clothes if it comes into contact with them. We will culture the urine. That will tell what bacteria is causing your infection and which antibiotics will treat it best.This test takes 3 days to complete. Clinical Impressions Clinical Impression: UTI (urinary tract infection) Instructions Patient Instructions: Urinary Tract Infection, Urine Culture, DI for Urinary Tract Infection (UTI) Print Language Print Language: Stateless Discharge ED Provider: Noman Aranda [facility] [place] HPI General Stated complaint: blood in urine Mode of Arrival: Ambulatory Source of Information: Patient Time Seen by Provider: 01/09/24 09:45 Description of Symptoms (Recalled from Triage Doc. by RN): BLOOD IN URINE HEENT Symptoms (Recalled from RN notes): No Resp Symptoms (Recalled from RN notes): No Skin Symptoms (Recalled from RN notes): No MS Symptoms (Recalled from RN notes): No Functional Status (Recalled from RN notes): WNL Related Data Home Medications ?Medication ?Instructions ?Recorded ?Confirmed levothyroxine 50 mcg tablet 50 mcg PO DAILY hypothyroid 07/02/21 01/09/24 (Synthroid) rivaroxaban 10 mg tablet (Xarelto) 10 mg PO DAILY dvts 04/24/22 01/09/24 amlodipine 2.5 mg tablet 2.5 mg PO DAILY 08/11/22 01/09/24 esomeprazole magnesium 20 mg 20 mg PO DAILY 01/09/24 01/09/24 capsule,delayed release Previous Rx's ?Medication ?Instructions ?Recorded nitrofurantoin 100 mg PO BID #10 caps 01/09/24 monohydrate/macrocrystals 100 mg capsule (Macrobid) phenazopyridine 200 mg tablet 200 mg PO Q8H 2 days #6 tabs 01/09/24 (Pyridium) Allergies Allergy/AdvReac Type Severity Reaction Status Date / Time No Known Allergies Allergy Verified 09/16/22 08:47 Worker's Comp Is this a Worker's Comp case?: No PFSH [facility] Disclaimer: The information contained in this section may have been updated after the patient was seen, as this information can be updated by other users. Medical History (Updated 01/09/24 @ 09:53 by Noman Aranda APRN) SNHL (sensorineural hearing loss) Dysfunction of eustachian tube Tinnitus Social History Smoking Status: Never smoker alcohol intake: current alcohol intake frequency: holidays/special occasions only substance use type: denies use current occupational status: retired Travel in the last 8 weeks: None household members: spouse housing: house ROS Obtained: Yes All systems reviewed & no additional complaints except as documented Constitutional Constitutional: Reports system reviewed and no additional complaints, except as documented, Denies chills and Denies fever(s) Eyes Eyes: Denies eye discharge ENT Ears, Nose, Mouth, and Throat: Denies dysphagia, Denies sore throat and Denies throat swelling Cardiovascular Cardiovascular: Denies chest pain and Denies dyspnea Respiratory Respiratory: Denies chest congestion, Denies cough and Denies dyspnea Gastrointestinal Gastrointestingal: Denies abdominal pain, constipation, diarrhea, dysphagia, nausea or vomiting Genitourinary Female Genitourinary: Reports as per HPI, Reports dysuria, Reports urinary frequency, Denies urinary incontinence, Reports urinary hesitancy and Reports urinary urgency Musculoskeletal Musculoskeletal: Denies arthralgias and Reports back pain Integumentary/Breasts Skin/Breast: Denies rash Neurologic Neurologic: Denies paresthesias Allergic/Immunologic Allergic/Immunologic: Denies throat swelling Physical Exam General General appearance: alert and in no apparent distress Head Head exam: atraumatic and normocephalic Eye Eye exam: Present normal appearance, PERRL and EOMI ENT ENT exam: Present normal exam, mucous membranes moist, TM's normal bilaterally and normal external ear exam Neck Neck exam: Present normal inspection, full ROM and trachea midline; Absent tenderness, meningismus or lymphadenopathy Chest Chest inspection: Present normal inspection and symmetric chest wall rise; Absent tenderness Respiratory Respiratory exam: Present normal lung sounds bilaterally; Absent respiratory distress, wheezes or stridor Cardiovascular Cardiovascular exam: Present regular rate, normal rhythm and normal heart sounds Abdominal Exam Abdominal exam: Present soft and normal bowel sounds; Absent distention, tenderness, guarding, rebound, rigidity, incision, psoas sign, obturator sign, heel tap sign, Iraheta's sign, Rovsing's sign or tenderness at McBurney's Point Extremities Exam Extremities exam: Present normal inspection, full ROM and normal capillary refill; Absent tenderness, edema, joint swelling, calf tenderness or cyanosis Back Exam Back exam: Present normal inspection and full ROM; Absent tenderness, CVA tenderness (R) or CVA tenderness (L) Neurological Exam Neurological exam: Present alert, oriented X3 and normal gait Psychiatric Psychiatric exam: Present normal affect and normal mood Skin Skin exam: Present warm, dry, intact and normal color Lymphatic Lymphatic Findings: no adenopathy Medical Decision Making Medical Records Medical records reviewed: No I reviewed the patient's medical records. Screening: Per USPSTF and CDC recommendations, given the prevalence of disease in our region, it is our hospital?s policy to screen for HIV and viral Hepatitis for all patients aged 18 and over and those with ongoing risk factors. Anders Inquiry Pt receiving controlled substance: No Vital Signs: 01/09/24 09:30 Temperature 97.9 F Temperature Source Oral Pulse Rate [Left Radial] 98 H Respiratory Rate 18 Blood Pressure [Left Arm] 158/87 H Blood Pressure Mean [Left Arm] 110 02 Sat by Pulse Oximetry 97 Lab Data Lab results reviewed: Yes I reviewed the patient's lab results. Lab Results 01/09/24 09:33: Urine Color Red, Urine Appearance Clear, Urine pH 5.5, Ur Specific [place] 1.030, Urine Protein 4+, Urine Glucose (UA) Negative, Urine Ketones 15, Urine Blood 4+, Urine Nitrate Positive A, Urine Bilirubin 3+ A, Urine Urobilinogen 1, Ur Leukocyte Esterase 3+ A Orders (Tests/Meds): ORDERS Category Date Time Status Urine Culture Stat Micro 01/09/24 09:42 Ordered
[2024-01-09 10:00] VITALS: BP 158/87; PULSE 98; RESP 18; TEMP 36.6
== END 2024-01-09 10:01 | disposition home or self-care (01) ==
PROVIDERS: Emergency Provider Nurse Practitioner Family; PCP Internal Medicine Adolescent Medicine
DX: N39.0 Urinary tract infection, site not specified (principal)
CPT/HCPCS: 81003; 87086; 99213; G0381

== ENCOUNTER 2024-08-23 10:28 | Outpatient (CLI) | payer MEDICARE, SELFPAY ==
--- NOTE | 2024-08-23 | CA_ITS ---
APPROVED REPORT Exam: Pharmacologic Technologist: Maye Samano Ht: 5 ft 2 in Wt: 109 lbs BSA: 1.48 m2 Medical History Medications: amlodipine, esomeprazole magnesium, synthroid, xarelto Stress Test Details Test: Lexiscan HR Resting HR: 55 bpm Max Heart Rate (APMHR): 139 bpm Max HR Achieved: 102 bpm Target HR (85% APMHR): 118 bpm % of APMHR: 73 Recovery HR: 91 bpm BP Resting BP: 194.0/85.0 mmHg Max BP: 194.0/85.0 mmHg Recovery BP: 179.0/94.0 mmHg ECG Resting ECG: SR Stress ECG Conclusion Symptoms: palpitations with Lexiscan, nausea noted as well. Arrhythmias/Ectopy: None. ST-T Changes: unremarkable with Lexiscan. Electronically signed by : Alexandria Figueroa MD 08/25/2024 15:38:25
--- OUTSIDE RECORDS SUMMARY | 2024-08-23 10:32 | XMS_ITS | Clinical Summary ---
Author Organization [employer] [facility] [employer] Address [address] [place], [place] [address] Care Team Providers Care Helminthology Teacher Name Role Phone Unavailable Primary Care Provider Unavailabl e Encounters Date Type Department Care Team Description 08/08/[address] [facility] Gastroenterology [address] [place] [address] [address] [place] [phone] Jennie Pandya Gastroesophageal reflux disease with esophagitis without hemorrhage (Primary Dx) from Last 3 Months Social History Tobacco Use Types Packs/Day Years Used Date Smoking Tobacco: Never Assessed Comments Unknown Sex and Gender Information Value Date Recorded Sex Assigned at Not on file Legal Sex Female 6:05 PM CDT Gender Identity Not on file Sexual Orientation Not on file Plan of Treatment Not on file Insurance [facility] MEDICARE ADVANTAGE
--- OUTSIDE RECORDS SUMMARY | 2024-08-23 10:32 | XMS_ITS | Referral Summary ---
Author Organization [employer] [facility] [employer] Address [address] [place], [place] [id number] Care Team Providers Care Jukebox Operator Name Role Phone Unavailable Primary Care Provider Unavailabl e Encounters Date Type Department Care Team Description 08/08/2024 Outside Orders [facility] Gastroenterology [address] [place] [address] [address] [place] [phone] Jennie Pandya Gastroesophageal reflux disease with [...] Plan of Treatment Not on file Insurance [facility] MEDICARE ADVANTAGE
--- OUTSIDE RECORDS SUMMARY | 2024-08-23 10:32 | XMS_ITS | Encounter Summary ---
Author Organization [employer] [facility] [employer] Address [address] [place] [address] Care Team Providers Care Key Carrier Name Role Phone Unavailable Primary Care Provider Unavailabl e Reason for Referral * Surgical (Routine) - Authorized Specialty Diagnoses / Procedures Referred By Contac t Referred To Contact Gastroenterology Diagnoses Gastroesophageal reflux disease with esophagitis without hemorrhage Thomas Queen MD [address] [facility] [address] [place] [address] Phone: tel: fax: [facility] Gastroenterology [address] [facility] [address] [place] [address] Phone: tel: fax: Referral ID Status Reason Start Date Expiration Date Visits Requested Visits Authorized [id number] Authorized Specialty Services Required 08/08/2024 08/08/2025 1 1 Encounter Details Date Type Department Care Team (Latest Contact Info) Description 08/08/2024 Outside Orders [facility] Gastroenterology [address] [facility] [address] [place] [phone] Jennie Pandya Gastroesophageal reflux disease with esophagitis without hemorrhage (Primary Dx) Social History Tobacco Use Types Packs/Day Years Used Date Smoking Tobacco: Never Assessed Comments Unknown Sex and Gender Information Value Date Recorded Sex Assigned at Not on file Legal Sex Female 6:05 PM CDT Gender Identity Not on file Sexual Orientation Not on file documented as of this encounter Plan of Treatment Scheduled Referrals Name Type Priority Associated Diagnoses Order Schedule Ambulatory referral to Gastroenterology Outpatient Referral Routine Gastroesophageal reflux disease with esophagitis without hemorrhage Expected: 08/08/2024, Expires: 08/08/2025 documented as of this encounter Visit Diagnoses Diagnosis Gastroesophageal reflux disease with esophagitis without hemorrhage- Primary documented in this encounter
--- NOTE | 2024-08-23 11:15 | CA_ITS ---
APPROVED REPORT EXAM: Comprehensive 2D, Doppler, and color-flow Echocardiogram Underground Utility Locator: CAMRON Porter, RVS Ht: 5 ft 2 in Wt: 109lbs BSA: 1.48 BP: 109/86 mmHg Indications: ABN EKG 2D Dimensions Aortic Root 2.61 cm LA Volume 58.30 mL Left Atrium 2.98 cm LA Volume Index 39.620215 mL/m2 (M/F) 16-34 RVID Base (AP4) 3.23 cm (M/F) 2.5-4.1 EF AP4 70.90 % LVOT 2.09 cm (M/F) 1.5-2.5 GL Strain -25.0 % M-Mode Dimensions RVDd 1.56 cm (0.9-2.6) LVDd 4.46 cm (3.5-5.7) Ao Diam 2.61 cm (2.0-3.7) LVDs 2.68 cm (3.5-5.7) IVSd 0.81 cm (0.6-1.1) PWd 0.84 cm (0.6-1.1) EF (Teich) 70.70% EPSs 0.22 cm FS 39.90% EDV (Teich) 90.50 mL TAPSE 2.29 (<1.7) ESV (Teich) 26.50 mL LV Diastology E Decel Time 225 (160-240 msec) E/A Ratio 1.06 MED E' 9.3 (>= 7 cm/sec) MED A' 18.00 cm/s E'/MED E' Ratio 10.30 (<= 14) LAT E' 8.9 (>= 10 cm/sec) LAT A' 15.80 cm/s E/LAT E' Ratio 10.76 (<= 14) Aortic Valve LVOT Max 102.0 (70-110 cm/s) OLINDA Index 1.60 cm2/m2 LVOT VTI 25.23 cm AoV Peak Emery. 150.0 (50-130 cm/s) AO Mean GR. 4.50 (<5 mmHg) AO VTI 36.5 (18-25 cm) OLINDA (VTI) 2.37 (2.5-4.5 cm2) Mitral Valve MV E Max Emery. 96.0 (40-130 cm/s) MV A Velocity 90.0 (40-130 cm/s) E/A Ratio 1.06 MV Decel. Time 225 (160-240 ms) MV Mean Gr. 1.50 (<2mmHg) Tricuspid Valve TR P. Velocity 274.00 cm/s RAP Estimate 10.00 mmHg RVSP 40.00 mmHg Left Ventricle The left ventricle is normal size. The left ventricular systolic function is normal. The left ventricular ejection fraction is within the normal range. There is increased LV wall thickness. There is normal LV segmental wall motion. The left ventricular diastolic function is normal. LVEF is 60%. Right Ventricle The right ventricle is normal size. The right ventricular systolic function is normal. Atria Left atrium is mildly dilated. Right atrium is mildly dilated. There is no Doppler evidence of interatrial shunt. Aortic Valve The aortic valve is mildly thickened. There is no aortic valvular stenosis. Trace aortic regurgitation. Mitral Valve The mitral valve is normal in structure. No evidence of mitral valve stenosis. Mild mitral regurgitation. Tricuspid Valve Tricuspid valve is grossly normal in structure and function. Mild tricuspid regurgitation. RVSP 25-30 mmHg. Pulmonic Valve The pulmonary valve is normal in structure. Trace pulmonic regurgitation. Great Vessels The aortic root is normal in size. IVC is normal in size and collapses >50% with inspiration. Pericardium There is no pericardial effusion. Other Information Study Quality: Fair Conclusion Normal biventricular systolic function. Mild biatrial dilation. Mild MR, mild TR. Electronically signed by : Alexandria Figueroa MD 08/27/2024 20:30:47
--- NOTE | 2024-08-23 12:00 | NM_ITS ---
APPROVED REPORT Exam: Nuclear Stress Test Indication: hypertension..family hx Patient Location: Outpatient Stress Tech: Maye Chester [place] Tech:Liudmila Benton, ARRT, RT (R)(N) Ht: 5 ft 2 in Wt: 110 lbs HR: 55 bpm BP: 194/85 mmHg BSA: 1.48 m2 TID: 1.20 BMI: 20.1 History: hypertension..family hx Procedure: Patient received 0.4 mg of intravenous Lexiscan, resting heart rate 55 bpm, resting blood pressure 194/85 mmHg, with Lexiscan maximum heart rate achieved was 104 bpm which is 85 % of the maximum predicted heart rate and blood pressure was 190/89 mmHg. With Lexiscan, patient denied any complaint of chest pain. Cardiac Stress and Resting SPECT Images: Cardiac Stress and Resting SPECT images were obtained using technetium 99m Myoview 32.1 mCi stress and 10.73 mCi at rest. Resting and stress imaging in supine and prone positions demonstrate no evidence of fixed or reversible perfusion defects. There is borderline increase in transient ischemic dilatation ratio (TID 1.20), which may be suggestive of possible multivessel disease or balanced ischemia. Gated imaging demonstrates normal global and regional LV systolic function. LVEF is calculated at 59%. Conclusion: No evidence of fixed or reversible perfusion defects. There is borderline increase in transient ischemic dilatation ratio (TID 1.20), which may be suggestive of possible multivessel disease or balanced ischemia. Gated imaging demonstrates normal global and regional LV systolic function. LVEF is calculated at 59%. Electronically signed by : Alexandria Figueroa MD 08/24/2024 13:26:33
[2024-08-23] MEDS: SODIUM CHLORIDE 0.9% 10ML SYR (RAD ONLY) 10 ML IV ×2 (13:15)
[2024-08-23] MEDS: REGADENOSON 0.4MG/5ML SYRINGE 0.4 MG IV (13:15)
[2024-08-23] MEDS: ISOTOPE MYOVIEW (PER STUDY) 1 DOSE IV (13:15)
== END 2024-08-23 23:59 | disposition home or self-care (01) ==
LOC: RT 10:29
PROVIDERS: PCP Internal Medicine Adolescent Medicine; Visit Provider Nurse Practitioner Family
DX: Z01.810 Encounter for preprocedural cardiovascular examination (principal); I08.1 Rheumatic disorders of both mitral and tricuspid valves; I11.9 Hypertensive heart disease without heart failure; R94.31 Abnormal electrocardiogram [ECG] [EKG]; R94.39 Abnormal result of other cardiovascular function study
CPT/HCPCS: 78452; 93017; 93018; 93306; A9502; J2785

== ENCOUNTER 2024-09-12 08:37 | Outpatient (CLI) | payer MEDICARE, SELFPAY ==
--- OUTSIDE RECORDS SUMMARY | 2024-08-03 11:30 | XMS_ITS ---
Author Organization [facility] D ARCEN[facility] Address [address] [place] [address] Care Team Providers Care Demo Specialist Name Role Phone Thomas Queen Primary Care Provider Thomas Queen Unavailable Unavailable Allergies Allergen (clinical drug ingredient) Drug/Non Drug Allergy documented on EMR Reaction Allergy Type Onset Date Status ciprofloxacin Cipro Unknown Drug Allergy Act aj Reason For Referral Reason Dr. John Alanis at for egd... has seen before Diagnosis 1 Gastroesophageal ref lux disease with esophagitis without hemorrhage (K21.00) Referral Organization [facility] Referring Provider First Name Thomas Referring Provider Last Name Bret Referring Provider Speciality Internal M edicine Referred Organization [facility] Referrals Referred Address [address] [place] [place] [id number], Referred Provider Specialty Gastroentero logy General Notes Nayely Manley 2024 12:04:12 PM >sent to Vineet Nickie 08/08/2024 09:22:29 AM >sent again Referral Priority Urgent REASON FOR VISIT discuss referral Medications Medication SIG (Take, Route, Frequency, Duration) Notes Start Date End Date Status Xarelto 10 MG TAKE 1 TABLET DAILY at bedtime; Duration: 90 days Active Synthroid 50 MCG 1 tab(s) orally once a day; Duration: 90 days BRAND NAME ONLY 11/03/2022 Active MYLANTA COAT AND COOL 1200 MG-270 MG-80 MG/10 ML 10 ML ORALLY 1-2 times a day *Please review for potential replacement for e-prescription and drug interaction check* Active Centrum THERAPEUTIC MULTIPLE VITAMINS WITH MINERALS 1 TAB(S) ORALLY ONCE A DAY; Duration: 30 DAY(S) *Please review and pick correct strength-formulatio n from Medispan options. If intended option is not shown, discontinue and re-order from Quick Search* Active Vitamin D3 25 MCG 1 tab(s) orally once a day Active amLODIPine Besylate 2.5 MG 1 tab(s) orally once a day Active Pepcid 40 MG 1 tablet Orally Once a day prn Active Social History Tobacco Use: Social History Observation Description Date Details (start date - stop date) Never Smoker NA - NA Smoking: Question Answer Notes Are you a: nonsmoker Vital Signs Temperature 98 degrees Fahrenheit 08/03/2024 Heart Rate 74 /min 08/03/2024 Blood pressure systolic 122 mm Hg 08/04/19 25 Blood pressure diastolic 80 mm Hg 025 Height 5 ft 2 in in 08/03/2024 Weight 111 lbs 08/03/2024 BMI 20.3 kg/m2 08/03/2024 Encounters Encounter Location Date Provider Diagnosis [address] [address] 08/03/2024 Thomas Queen Gastroesophageal ref lux disease with esophagitis without hemorrhage K21.00 Assessments Encounter Date Diagnosis (ICD Code) Assessment Notes Treatment Notes Treatment Clinical Notes Section Notes 08/03/2024 Gastroesophageal reflux disease with esophagitis without hemorrhage (ICD-10 - K21.00) I am unclear about GI clinics requirement for a preop evaluation. Patient is extremely healthy, has handled general anesthesia before. She does take a DOAC but it is because of a history of DVT and protein S deficiency. Not sure about the indication for cardiology preop. She is also upset about the length of time before her EGD can be done. Will trial to see if Dr. Alanis at [facility] is available. She would prefer this route anyway. Plan Of Treatment Treatment Notes Assessment Notes Gastroesophageal reflux dise ase with esophagitis without hemorrhage I am unclear about GI clinics requirement for a preop evaluation. Patient is extremely healthy, has handled general anesthesia before. She does take a DOAC but it is because of a history of DVT and protein S deficiency. Not sure about the indication for cardiology preop. She is also upset about the length of time before her EGD can be done. Will trial to see if Dr. Alanis at [facility] is available. She would prefer this route anyway. Referrals Referral Date Details 08/03/2024 08/03/2024, Dr. Layla Alanis at for egd... has seen before, [address] [facility], [place], [address], Next Appt Details Follow Up: prn, Reason: Provider Name:Thomas Queen, 10/19/2024 09:15:00 AM, [address] [facility] [address], [place], [address], Progress Notes * Dahlia MCBRIDEhDOB: 3 (83 yo F)Acc No.[id number]:08/03/2024 Progress Notes Patient: Peggy CURIEL Provider: Cait Queen MD :1940 A ge:83 Y S ex:Female Date:08/03/2024 Address:[address] [place] [address], [place] [id number] Subjective: * Chief Complaints: * 1 . Discuss referral. * HPI: portia foster: Patient is here to discuss her pending EGD. She was scheduled with Dr. iWley clinic at [facility] and the nurse practitioner there is requiring her to have a cardiology preoperative consultation with [facility] cardiology before this procedure. She does not understand the rationale. She would prefer to be seen at [facility] to have Dr. Alanis do her EGD. * Medical History: H ypothyroidism, PE (05/16/2021), DVT (Right leg 02/2018), GERD, Varicose Veins- has had them stipped in 2008, Hiatal Hernia, Shingles 2004, Protein S deficiency. * Surgical History: C yst removed from between breasts 05/2021, Hysterectomy 2001. * Hospitalization/Major Diagno stic Procedure: h ysterectomy 2001. * Family History: F ather: . M other: , Aneurysm, CAD. P aternal Grand Father: .?Paternal Grand Mother: . M aternal Grand Father: . M aternal Grand Mother: . P aternal uncle: . P aternal aunt: . M aternal uncle: . M aternal aunt: . S ibzaira: alive. Cintia farias: alive. 2 brother(s) - healthy. 2 son(s) , 1 daughter(s) - healthy. . Three Cousins have diagnosis of genetic blood disorder V Leiden- Factor Five Leiden. * Social History: S moking A re you a: n onsmoker. R ecreational drug use: no. Exercise: yes. Home smoke detector use: yes. Caffeine: yes, frequency: coffee daily. Living Will: Yes. Alcohol: socially, shot of bourbon daily. Travel outside [place]: no. 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 * Medications: T aking Pepcid 40 MG Tablet 1 tablet Orally Once a day , Notes to Pharmacist: prn, Taking amLODIPine Besylate 2.5 MG Tablet 1 tab(s) orally once a day , Taking Vitamin D3 25 MCG Tablet 1 tab(s) orally once a day , Taking MYLANTA COAT AND COOL 1200 MG-270 MG-80 MG/10 ML SUSPENSION 10 ML ORALLY 1-2 times a day , Notes to Pharmacist: *Please review for potential replacement for e-prescription and drug interaction check*, Taking Centrum THERAPEUTIC MULTIPLE VITAMINS WITH MINERALS TABLET 1 TAB(S) ORALLY ONCE A DAY , Notes to Pharmacist: *Please review and pick correct strength-formulation from FitOrbitspan options. If intended option is not shown, discontinue and re-order from Quick Search*, Taking Synthroid 50 MCG Tablet 1 tab(s) orally once a day , Notes to Pharmacist: BRAND NAME ONLY, Taking Xarelto 10 MG Tablet TAKE 1 TABLET DAILY at bedtime , Medication List reviewed and reconciled with the patient * Allergies: C ipro. Objective: * Vitals: N urse: dw, Pain: 0, Temp: 98, RR: 18, HR: 74, BP: 122/80, Ht: 5 ft 2 in, Wt: 111, BMI:20.3. * Examination: G eneral Examination: General P leasant and Cooperative, NAD on RA,. Heart: R egular Rate and Rhythm, no murmur, rubs or gallops. HEENT: p harynx and tonsils normal, TM's normal. Lungs: L CTAB, No wheezes, crackles or rhonchi, Good air movement,. Abdomen: S oft, NTND, BSNA, No organomegaly or peritoneal signs.. Assessment: * Assessment: 1. G astroesophageal reflux disease with esophagitis without hemorrhage - K21.00 (Primary) Plan: * Treatment: * Follow Up: p rn * * Sign off status: Completed true * Provider: Cait Queen MD Date: 0 08/03/2024 Generated for Printi ng/Faxing/eTransmitting on: 0 09/12/2024 08:39 AM EDT History and Physical Notes * HPI (History of Present Illness) Category Sub-Category Detail Notes Category Not es gen Patient is here to discuss her pending EGD. She was scheduled with Dr. Wiley clinic at [facility] and the nurse practitioner there is requiring her to have a cardiology preoperative consultation with [facility] cardiology before this procedure. She does not understand the rationale. She would prefer to be seen at [facility] to have Dr. Alanis do her EGD. Examination Category Sub-Category Detail Notes Category Not es General Examination HEENT: pharynx and tonsils normal, TM's normal Heart: Regular Rate and Rhy thm, no murmur, rubs or gallops Lungs: LCTAB, No wheezes, c rackles or rhonchi, Good air movement, Abdomen: Soft, NTND, BSNA, No organomegaly or peritoneal signs. General Pleasant and Coopera tive, NAD on RA, Consultation Request Notes Referral Date Referring Provider Referred Provider Not es 08/03/[address] Warren F rank at for egd... has seen before
--- OUTSIDE RECORDS SUMMARY | 2024-08-07 06:15 | XMS_ITS ---
Author Organization [facility] Address [address] [place] [address] Care Team Providers Care Road Cutter Name Role Phone Thomas Queen Primary Care Provider Thomas Queen Unavailable Unavailable Allergies Allergen (clinical drug ingredient) Drug/Non Drug Allergy documented on EMR Reaction Allergy Type Onset Date Status ciprofloxacin Cipro Unknown Drug Allergy Act aj REASON FOR VISIT 1 month f/u Medications Medication SIG (Take, Route, Frequency, Duration) Notes Start Date End Date Status NexIUM 20 MG 1 capsule 1/2 to 1 hour before morning meal Orally Once a day; Duration: 30 day(s) 08/07/2024 Active Xarelto 10 MG TAKE 1 TABLET DAILY at bedtime; Duration: 90 days Active Pepcid 40 MG 1 tablet Orally Once a day prn Active Centrum THERAPEUTIC MULTIPLE VITAMINS WITH MINERALS 1 TAB(S) ORALLY ONCE A DAY; Duration: 30 DAY(S) *Please review and pick correct strength-formulatio n from cashcloud options. If intended option is not shown, discontinue and re-order from Quick Search* Active Synthroid 50 MCG 1 tab(s) orally once a day; Duration: 90 days BRAND NAME ONLY 11/03/2022 Active amLODIPine Besylate 2.5 MG 1 tab(s) orally once a day Active Vitamin D3 25 MCG 1 tab(s) orally once a day Active MYLANTA COAT AND COOL 1200 MG-270 MG-80 MG/10 ML 10 ML ORALLY 1-2 times a day *Please review for potential replacement for e-prescription and drug interaction check* Active Social History Tobacco Use: Social History Observation Description Date Details (start date - stop date) Never Smoker NA - NA Smoking: Question Answer Notes Are you a: nonsmoker Vital Signs Temperature 97.3 degrees Fahrenheit 08/08/19 25 Heart Rate 78 /min 08/07/2024 Blood pressure systolic 152 mm Hg 08/08/19 25 Blood pressure diastolic 82 mm Hg 025 Height 5 ft 2 in in 08/07/2024 Weight 111.4 lbs 08/07/2024 BMI 20.37 kg/m2 08/07/2024 Encounters Encounter Location Date Provider Diagnosis [facility] [address] [place] [address] 08/07/2024 Thomas Queen Gastroesophageal ref lux disease with esophagitis without hemorrhage K21.00 and Essential hypertension I10 Assessments Encounter Date Diagnosis (ICD Code) Assessment Notes Treatment Notes Treatment Clinical Notes Section Notes 08/07/2024 Gastroesophageal reflux disease with esophagitis without hemorrhage (ICD-10 - K21.00) Will continue proton pump inhibitor. We have already reached out to Dr. Bundy office to schedule EGD fairly quickly 08/07/2024 Essential hypertension (ICD-10 - I10) Blood pressure is excellent. Patient an outstanding cardiovascular condition Plan Of Treatment Medication Medication Name Sig Start Date Stop Date Notes NexIUM 20 MG 1 capsule 1/2 to 1 h our before morning meal Orally Once a day; Duration: 30 day(s) 08/07/2024 Treatment Notes Assessment Notes Gastroesophageal reflux dise ase with esophagitis without hemorrhage Will continue proton pump inhibitor. We have already reached out to Dr. Bundy office to schedule EGD fairly quickly Essential hypertension Blood pressure is excellent. Patient an outstanding cardiovascular condition Next Appt Details Follow Up: prn, Reason: Provider Name:Thomas Queen, 10/19/2024 09:15:00 AM, [address], [address], Progress Notes * Indy MCBRIDEOB: 3 (83 yo F)Acc No.[id number]:08/07/2024 Progress Notes Patient: Peggy CURIEL Provider: Cait Queen MD :1940 A ge:83 Y S ex:Female Date:08/07/2024 Address:[id number] Subjective: * Chief Complaints: * 1 . 1 month f/u. * HPI: g en: Patient is here for 1 month follow-up. See notes from last week. She wanted to come back and update her condition with her hiatal hernia. She started on Nexium. She feels good with this. She is taken to the middle the afternoon. Still has some swelling in the left upper quadrant and would still like an EGD done in [place]. * Medical History: H ypothyroidism, PE (05/16/2021), [...] uncle: . M aternal aunt: . S iblings: alive. C hildren: alive. 2 brother(s) - healthy. 2 son(s) [...] *Please review and pick correct strength-formulation from Medispan options. If intended option is not shown, discontinue and re-order from Quick Search*, Taking Synthroid 50 MCG Tablet 1 tab(s) orally once a day , Notes to Pharmacist: BRAND NAME ONLY, Taking Xarelto 10 MG Tablet TAKE 1 TABLET DAILY at bedtime , Medication List reviewed and reconciled with the patient * Allergies: C ipro. Objective: * Vitals: N urse: jl, Pain: 0, Temp: 97.3, RR: 18, HR: 78, BP: 152/82, Ht: 5 ft 2 in, Wt: 111.4, BMI:20.37. * Examination: G astroenterology: General Appearance: p leasant, NAD. Oral cavity: n ormal. Sclera: a nicteric. Heart sounds: r egular, normal S1 S2 , no murmurs. Lungs: c lear, no crackles or wheezes. Abdomen: s oft, BS present, no guarding or rigidity, no masses felt. Hernias: n one. Skin W ithout acute rashes. Assessment: * Assessment: 1. G astroesophageal reflux disease with esophagitis without hemorrhage - K21.00 (Primary) 2 . E ssential hypertension - I10 Plan: * Treatment: 2. E ssential hypertension Notes: Blood pressure is excellent. Patient an outstanding cardiovascular condition * Follow Up: p rn * * Sign off status: Completed true * Provider: Cait Queen MD Date: 0 08/07/2024 Generated for Daryai karina/Kasandra/eTbiancasmitting on: 0 09/12/2024 08:39 AM EDT History and Physical Notes * HPI (History of Present Illness) Category Sub-Category Detail Notes Category Not es gen Patient is here for 1 month follow-up. See notes from last week. She wanted to come back and update her condition with her hiatal hernia. She started on Nexium. She feels good with this. She is taken to the middle the afternoon. Still has some swelling in the left upper quadrant and would still like an EGD done in [place]. Examination Category Sub-Category Detail Notes Category Not es Gastroenterology Oral cavity: normal Sclera: anicteric Heart sounds: regular, normal S1 S 2 , no murmurs Lungs: clear, no crackles o r wheezes Abdomen: soft, BS present, no guarding or rigidity, no masses felt Hernias: none General Appearance: pleasant, NAD Skin Without acute rashes
--- OUTSIDE RECORDS SUMMARY | 2024-09-07 05:00 | XMS_ITS ---
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 [employer] Name Role Phone Thomas Queen Primary Care Provider [phone] Thomas Queen Unavailable Unavailable Allergies Allergen (clinical drug ingredient) Drug/Non Drug Allergy documented on EMR Reaction Allergy Type Onset Date Status ciprofloxacin Cipro Unknown Drug Allergy Act aj Reason For Referral Reason Please set up CTA of coronary arteries at [facility] if possible-questionably abnormal nuclear stress test Diagnosis 1 Encounter for screen ing for coronary artery disease (Z13.6) Referral Organization [facility] LORENE RG Referring Provider First Name Thomas Referring Provider Last Name Bret Referring Provider Speciality Internal M edicine Referred Organization [facility] Referred Address [facility] [address] [facility], [place], [place],[address],[place] Referred Provider Specialty Diagnostic R adiology General Notes Ilan Vogt 05/2024 02:20:55 PM > faxed to [facility] and they will call pt- [place] does not do themVineet Nickie 09/11/2024 09:14:11 AM >Scheduled at [facility] 09-12-24 at 10- be there at 9. No caffeine 12 hours prior including chocolate. Nothing to eat or drink 2 hours before, except for water. Can take BP meds in the am if needed.Vineet Nickie 09/11/2024 09:16:33 AM >Left a with patient Referral Priority Routine Referral Appointment Date 09/12/2024 REASON FOR VISIT Talk about cardiac catherization for next test Medications Medication SIG (Take, Route, Frequency, Duration) Notes Start Date End Date Status amLODIPine Besylate 2.5 MG 1 tab(s) orally once a day Active Pepcid 40 MG 1 tablet Orally Once a day prn Active NexIUM 20 MG 1 capsule 1/2 to [...] for e-prescription and drug interaction check* Active Vitamin D3 25 MCG 1 tab(s) orally once a day Active Centrum THERAPEUTIC MULTIPLE VITAMINS WITH MINERALS 1 TAB(S) ORALLY ONCE A DAY; Duration: 30 DAY(S) *Please review and pick correct strength-formulatio n from AllergEase options. If intended option is not shown, discontinue and re-order from Quick Search* Active Social History Tobacco Use: Social History Observation Description Date Details (start date - stop date) Never Smoker NA - NA Smoking: Question Answer Notes Are you a: nonsmoker Vital Signs Temperature 98 degrees Fahrenheit 09/07/2024 Heart Rate 68 /min 09/07/2024 Blood pressure systolic 128 mm Hg 09/08/19 25 Blood pressure diastolic 78 mm Hg 025 Height 5 ft 2 in in 09/07/2024 Weight 110 lbs 09/07/2024 BMI 20.12 kg/m2 09/07/2024 Encounters Encounter Location Date Provider Diagnosis [address] [address] 09/07/2024 Thomas Queen Essential hypertensi on I10 ; Gastroesophageal reflux disease with esophagitis without hemorrhage K21.00 and Encounter for screening for coronary artery disease Z13.6 Assessments Encounter Date Diagnosis (ICD Code) Assessment Notes Treatment Notes Treatment Clinical Notes Section Notes 09/07/2024 Essential hypertension (ICD-10 - I10) - BP well controlled, 120s/70s in clinic - Continue amlodipine 2.5mg 09/07/2024 Gastroesophageal reflux disease with esophagitis without hemorrhage (ICD-10 - K21.00) - EGD showing reflux esophagitis and small hiatal hernia - Currently on Nexium for last week and reports imrpovement in symptoms, no longer taking nightly Mylanta 09/07/2024 Encounter for screening for coronary artery disease (ICD-10 - Z13.6) - Had nuclear stress test for cardiac clearance for EGD - Stress test showing no evidence of perfusion defects but possible multivessel disease or balanced ischemia. LVEF 59% - Denies chest pain but having LUQ pain that is worse after a meal and worse with exertion, unclear if anginal symptoms - Cardiac catheterization was recommended but patient prefers to defer for less invasive testing - Offered referral to alternative cardiology or CCTA and paitent opted for imaging study - WIll order coronary CTA to evaluate for CAD 09/07/2024 Other Please note reviewed prior notes from multiple subspecialist , GI, cardiology. Discussed with patient in detail pros and cons of different testing. Complex visit given her multiple comorbid conditions and her need for shared decision making Plan Of Treatment Treatment Notes Assessment Notes Essential hypertension - BP well controlled, 120s/70s in clinic - Continue amlodipine 2.5mg Gastroesophageal reflux dise ase with esophagitis without hemorrhage - EGD showing reflux esophagitis and small hiatal hernia - Currently on Nexium for last week and reports imrpovement in symptoms, no longer taking nightly Mylanta Encounter for screening for coronary artery disease - Had nuclear stress test for cardiac clearance for EGD - Stress test showing no evidence of perfusion defects but possible multivessel disease or balanced ischemia. LVEF 59% - Denies chest pain but having LUQ pain that is worse after a meal and worse with exertion, unclear if anginal symptoms - Cardiac catheterization was recommended but patient prefers to defer for less invasive testing - Offered referral to alternative cardiology or CCTA and paitent opted for imaging study - WIll order coronary CTA to evaluate for CAD Pending Test Test Name Order Date CTA : Coronary 09/07/2024 Referrals Referral Date Details 09/07/2024 09/07/2024, Please s et up CTA of coronary arteries at [facility] if possible-questionably abnormal nuclear stress test, [address] [facility], [place], [address], Next Appt Details Follow Up: 6 Weeks, Reason: Provider Name:Thomas Queen, 10/19/2024 09:15:00 AM, [address] [facility] [address], [place], [address], Progress Notes * Indy MCBRIDEOB: 3 (83 yo F)Acc No.[id number]:09/07/2024 Progress Notes Patient: Peggy CURIEL Provider: Cait Queen MD :[id number] A ge:83 Y S ex:Female Date:09/07/2024 Address:[address] [place] [address] [place], [place] [facility], [id number] Subjective: * Chief Complaints: * 1 . Talk about cardiac catherization for next test. * HPI: g en: Peggy Mcbride is an 83 YO F here to discuss results of stress test. She had a nuclear stress test done for cardiac clearance for EGD. Upper GI scope showed gastritis. She is taking Nexium and has had improvement in reflux symptoms. She no longer has to take Mylanta at night. She denies chest pain. She does complain of LUQ pain that is worse after eating and worse with activity such as working in her garden. Nuclear stress test showed possible multivessel disease and cardiac cath was recommended. Ms Mcbride does not want to undergo a cardiac cath. We discussed options to refer to another warning analyst or undergo CTA of coronaries. She would like to do the CT scan. BP is well controlled. * Medical History: H ypothyroidism, PE (05/16/2021), DVT (Right leg 02/2018), GERD, Varicose Veins- has had them stipped in 2008, Hiatal Hernia - EGD 08/30 - gastritis - biopsies negative, Shingles 2004, Protein S deficiency. * Surgical [...] M aternal aunt: . S iblings: alive. Cintia farias: alive. 2 brother(s) - [...] TAKE 1 TABLET DAILY at bedtime , Taking NexIUM 20 MG Capsule Delayed Release 1 capsule 1/2 to 1 hour before morning meal Orally Once a day , Medication List reviewed and reconciled with the patient * Allergies: C ipro. Objective: * Vitals: N urse: dw, Pain: 0, Temp: 98, RR: 18, HR: 68, BP: 128/78, Ht: 5 ft 2 in, Wt: 110, BMI:20.12. * Examination: G eneral Examination: General P leasant and Cooperative, NAD on RA, appear younger than stated age. Heart: R egular Rate and Rhythm, no murmur, rubs or gallops. Lungs: L CTAB, No wheezes, crackles or rhonchi, Good air movement,. Abdomen: n o abdominal tenderness. Extremities: n ormal ROM,, no clubbing, no edema,, no foot lesions,. Assessment: * Assessment: 1. E ssential hypertension - I10 (Primary) 2 . G astroesophageal reflux disease with esophagitis without hemorrhage - K21.00 3 . E ncounter for screening for coronary artery disease - Z13.6 Plan: * Treatment: 2. G astroesophageal reflux disease with esophagitis without hemorrhage Notes: - EGD showing reflux esophagitis and small hiatal hernia - Currently on Nexium for last week and reports imrpovement in symptoms, no longer taking nightly Mylanta 3. E ncounter for screening for coronary artery disease I maging: CTA : Coronary Notes: - Had nuclear stress test for cardiac clearance for EGD - Stress test showing no evidence of perfusion defects but possible multivessel disease or balancedischemia. LVEF 59% - Denies chest pain but having LUQ pain that is worse after a meal and worse with exertion, unclearif anginal symptoms - Cardiac catheterization was recommended but patient prefers to defer for less invasive testing - Offered referral to alternative cardiology or CCTA and paitent opted for imaging study - WIll order coronary CTA to evaluate for CAD? Referral To: ?Reason:Please set up CTA of coronary arteries at [facility] if possible-questionably abnormal nuclear stress test 4.?Others? Clinical Notes: Please note reviewed prior notes from multiple subspecialist, GI, cardiology. Discussed with patient in detail pros and cons of different testing. Complex visit given her multiple comorbid conditions and her need for shared decision making? * Procedure Codes: G 2211 Complex e/m visit add on * Follow Up: 6 Weeks * * Sign off status: Completed true * Provider: Cait Queen MD Date: 0 09/07/2024 Generated for Printi ng/Fadimitriosg/eTransmitting on: 09/12/2024 08:39 AM EDT History and Physical Notes * HPI (History of Present Illness) Category Sub-Category Detail Notes Category Not es gen Peggy Mcbride is an 83 YO F here to discuss results of stress test. She had a nuclear stress test done for cardiac clearance for EGD. Upper GI scope showed gastritis. She is taking Nexium and has had improvement in reflux symptoms. She no longer has to take Mylanta at night. She denies chest pain. She does complain of LUQ pain that is worse after eating and worse with activity such as working in her garden. Nuclear stress test showed possible multivessel disease and cardiac cath was recommended. Ms Mcbride does not want to undergo a cardiac cath. We discussed options to refer to another warning analyst or undergo CTA of coronaries. She would like to do the CT scan. BP is well controlled. Examination Category Sub-Category Detail Notes Category Not es General Examination Heart: Regular Rate and Rhythm, no murmur, rubs or gallops Lungs: LCTAB, No wheezes, c rackles or rhonchi, Good air movement, Abdomen: no abdominal tendern ess Extremities: normal ROM,, no club stlela, no edema,, no foot lesions, General Pleasant and Coopera tive, NAD on RA, appear younger than stated age Consultation Request Notes Referral Date Referring Provider Referred Provider Not es 09/07/2024 Thomas Queen , Please set u p CTA of coronary arteries at [facility] if possible-questionably abnormal nuclear stress test
--- NOTE | 2024-09-12 08:39 | CT_ITS ---
APPROVED REPORT Scenario Writer: CLINICAL INDICATION Chest Pain TECHNIQUE Image Acquisition: A 128 slice MDCT scanner ([employer] View) was used for data acquisition. A noncontrast coronary calcium scan was performed. A CT attenuation threshold of 130 Hounsfield units (HU) was used for the detection of calcium in contiguous voxels of 1 sq mm in area to be counted as individual lesions. Bolus tracking in the ascending aorta with a threshold of 180 HU was performed. Immediately afterwards, ECG synchronized cardiac CT was then performed from the cardiac base to apex using retrospective gating with ECG tube current modulation. A total of 85 mL of Isovue 370 mg/mL contrast medium was administered at 5 mL/sec followed by a saline flush using a biphasic injection protocol. A tube voltage of 120 KVp was used. The average heart rate at the time of acquisition was 59 bpm and regular. Image Reconstruction Transaxial images were reconstructed at 0.67 mm slide thickness. Data was reviewed interactively on an advanced workstation capable of 2 and 3-dimensional displays in all conventional reconstruction formats, including multiplanar reformations, maximum intensity projections, curved multiplanar reformations, and volume rendered reconstructions. When applicable, selected routine images describing the relevant coronary anatomy and pathology were saved and sent to PACS. Complications None Technical Quality Overall image quality was good. Coronary artery opacification was adequate. Total DLP (Dose-Length Product) is 1657.8 mGy-cm. The reported value represents the total of one or more individual components during the CT acquisition of this date and at this time, and as such, the same value may appear in more than one CT report depending on the interpreting/reporting physicians. COMPARISON None FINDINGS CT Coronary Calcium Scoring LMA (Left Main Artery) = 3 LAD (Left Anterior Descending) = 20 LCX (Left Coronary Circumflex) = 0 RCA (Right Coronary Artery) = 41 Total Calcium Score = 64 using the AJ-130 method. The observed calcium score of 64 is at 38th percentile for subjects of the same age, sex, and race/ethnicity. The interpretation of the calcium heart score is based on the following continuum*: 0 = no calcified plaque detected (risk of coronary artery disease is very low ??? less than 5%) 1-10 = calcium detected in extremely minimal levels (risk of coronary diseases is still low ??? less than 10%) 11-100 = mild levels of plaque detected with certainty (mild or minimal narrowing of heart arteries is likely) 101-400 = definite,at least moderate levels of plaque detected (relatively high risk of a heart attack within 3-5 years) >401-999 = extensive levels of plaque detected (high risk of heart attack, high levels of vascular disease are present, high likelihood of at least one significant coronary narrowing) *The calcium heart score quantifies the burden of coronary calcification/plaque in the coronary arteries. The calcium heart score is not able to evaluate the presence or burden of non-calcified (i.e. soft) plaque. There is also calcification in the ascending and descending aorta. Coronary CT Angiography The coronary arterial system is right dominant. Quantitative Stenosis Grading: Left Main (LM): The left main originates normally from the left sinus of Valsalva. The LM bifurcates into the left anterior descending artery and left circumflex artery. There is calcified plaque in the distal LM segment, with no evidence of luminal stenosis. Left Anterior Descending (LAD) and Diagonal Branches: The LAD gives off 2 diagonal branch(es). There is a mixed calcified/non-calcified plaque in the proximal LAD segment with up to 70-90% luminal stenosis. There is no evidence of LAD-myocardial bridge. Left Circumflex (LCX) and Obtuse Marginals (OM): The LCX gives off 1 Obtuse Marginal (OM) branch(es). There is noncalcified plaque in the proximal and mid LCx segments with < 25% luminal stenosis. Right Coronary Artery (RCA): The RCA originates normally from the right sinus of Valsalva. The RCA gives off a posterior descending artery (PDA) and posterolateral (PL) branches. There is mixed calcified/non-calcified plaque in the proximal and mid RCA segments, with up to 70-90% luminal stenosis in the mid RCA segment. Non-Coronary Cardiac Findings: Analysis of the left ventricular (LV) structure and function was performed after 3-D reconstruction of the LV from axial images, with user-corrected automatic contouring for assessment of LV volumes and user-defined reconstruction from oblique planes for measurement of 3-D cardiac structure and function. -The left ventricle systolic function is normal. -There is no left atrial appendage filling defect. Two right pulmonary veins and two left pulmonary veins drain normally into the left atrium. -No pericardial thickening or calcification. -Central and branch pulmonary arteries in the [id number]-[id number]-hhik are unremarkable. -Thoracic aorta within the visualized thoracic aortic-branches in the [id number] is unremarkable. Extracardiac Structures No significant extra-cardiac findings. Note, however, that this study is focused on the cardiac findings. IMPRESSION - Presence of coronary calcification with an Agatston score = 64 using the AJ-130 method. -The observed calcium score of 64 is at 38th percentile for subjects of the same age, sex, and race/ethnicity. 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 -CAD-RADS 4A. Management recommendations per ACC/AHA guidelines*, as clinically appropriate. *Recommendations: CAD RADS 0: Reassurance. Consider non-atherosclerotic causes of chest pain. CAD RADS 1: Consider non-atherosclerotic causes of chest pain. Consider preventive therapy and risk factor modification. CAD RADS 2: Consider non-atherosclerotic causes of chest pain. Consider preventive therapy and risk factor modification, particularly for patients with nonobstructive plaque in multiple segments. CAD RADS 3: Consider further functional testing. Consider symptom-guided anti-ischemic and preventive pharmacotherapy as well as risk factor modification per published guideline statements. CAD RADS 4A: Consider further functional testing or invasive coronary angiography with revascularization per published guideline statements. Consider symptom-guided anti-ischemic and preventive pharmacotherapy as well as risk factor modification per published guideline statements. CAD RADS 4B: Invasive coronary angiography recommended with revascularization per published guideline statements. Consider symptom-guided anti-ischemic and preventive pharmacotherapy as well as risk factor modification per published guideline statements. CAD RADS 5: Consider invasive angiography and/or viability assessment with revascularization per published guideline statements. Consider symptom-guided anti-ischemic and preventive pharmacotherapy as well as risk factor modification per published guideline statements. CRITICAL RESULT None COMMUNICATION Per this written report The coronary and cardiac findings of this CCTA were reviewed, reported, and signed by Kem Figueroa MD ([employer]) Conclusion Electronically signed by : Alexandria Figueroa MD 09/14/2024 13:51:39
--- OUTSIDE RECORDS SUMMARY | 2024-09-12 08:39 | XMS_ITS | Referral Summary ---
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
--- OUTSIDE RECORDS SUMMARY | 2024-09-12 08:39 | XMS_ITS | Patient Health Record ---
Author Organization [facility] Address [address] [place] [address] Care Team Providers Care Preschool Aide Name Role Phone Thoams Queen Primary Care Provider Thomas Queen Unavailable Unavailable Fay Carballo Unavailable [phone] Ursula Arroyo Unavailable [phone] Fay Thomas Unavailable [phone] Migration, Provider Unavailable Unavailable Allergies Allergen (clinical drug ingredient) Drug/Non Drug Allergy documented on EMR Reaction Allergy Type Onset Date Status ciprofloxacin Cipro Unknown Drug Allergy Act aj Results Component Value Reference Range Notes BASIC METABOLIC PANEL (39243 ) Reviewed date:12/29/2023 07:58:19 AM Interpretation: Performing Lab:[facility], [facility] Yamx9566 [facility], [facility] CenterGcgjJY[address] Toni Rosen Notes/Report: NON-FASTING; NON-FASTING GLUCOSE 111 65-99 mg/dL Fasting reference interval For someone without known diabetes, a glucose value between 100 and 125 mg/dL is consistent with prediabetes and should be confirmed with a follow-up test. UREA NITROGEN (BUN) 11 7-25 mg/dL CREATININE 0.97 0.60-0.95 mg/dL EGFR 59 > OR = 60 mL/min/1.73m2 BUN/CREATININE RATIO 11 6-22 (calc) SODIUM 140 135-146 mmol/L POTASSIUM 4.3 3.5-5.3 mmol/L CHLORIDE 102 98-110 mmol/L CARBON DIOXIDE 31 20-32 mmol/L CALCIUM 10.2 8.6-10.4 mg/dL THYROID PANEL WITH TSH (7444 ) Reviewed date:12/29/2023 07:58:19 AM Interpretation: Performing Lab:[facility] [employer] Znhe[address], Wil NewtonRdhrLP[address] Toni Rosen Notes/Report: NON-FASTING; NON-FASTING T3 UPTAKE 33 22-35 % T4 (THYROXINE), TOTAL 7.2 5.1-11.9 mcg/dL FREE T4 INDEX (T7) 2.4 1.4-3.8 TSH 3.50 0.40-4.50 mIU/L LIPID PANEL, STANDARD (7600) Reviewed date:06/26/2024 12:55:44 PM Interpretation: Performing Lab:[facility] [employer] Kvro0980 [employer], VerblingRfvuWD[address] Toni Rosen Notes/Report: NON-FASTING; NON-FASTING; NON-FASTING; NON-FASTING FASTING:YES FASTING: YES CHOLESTEROL, TOTAL 205 <200 mg/dL HDL CHOLESTEROL 75 > OR = 50 mg/dL TRIGLYCERIDES 84 <150 mg/dL LDL-CHOLESTEROL 112 Reference range: <100 Desirable range <100 mg/dL for primary prevention; <70 mg/dL for patients with CHD or diabetic patients with > or = 2 CHD risk factors. LDL-C is now calculated using the Davis-Benton calculation, which is a validated novel method providing better accuracy than the Friedewald equation in the estimation of LDL-C. Davis SS et al. ALONDRA. 2013;310(19): 8981-4862 (http://education.RapidMind/faq/EKE003) CHOL/HDLC RATIO 2.7 <5.0 (calc) NON HDL CHOLESTEROL 130 <130 mg/dL (calc) For patients with diabetes plus 1 major ASCVD risk factor, treating to a non-HDL-C goal of <100 mg/dL (LDL-C of <70 mg/dL) is considered a therapeutic option. COMPREHENSIVE METABOLIC PANE L (65774) Reviewed date:06/26/2024 12:55:44 PM Interpretation: Performing Lab:[facility] [employer] [id number], Wil NewtonPsspIO[address] Toni Rosen Notes/Report: NON-FASTING; NON-FASTING; NON-FASTING; NON-FASTING FASTING:YES FASTING: YES GLUCOSE 95 65-99 mg/dL Fasting reference interval UREA NITROGEN (BUN) 13 7-25 mg/dL CREATININE 0.85 0.60-0.95 mg/dL EGFR 69 > OR = 60 mL/min/1.73m2 BUN/CREATININE RATIO SEE NOTE: 6-22 (calc) Not Reported: BUN and Creatinine are within reference range. SODIUM 142 135-146 mmol/L POTASSIUM 4.2 3.5-5.3 mmol/L CHLORIDE 101 98-110 mmol/L CARBON DIOXIDE 31 20-32 mmol/L CALCIUM 10.1 8.6-10.4 mg/dL PROTEIN, TOTAL 7.3 6.1-8.1 g/dL ALBUMIN 4.7 3.6-5.1 g/dL GLOBULIN 2.6 1.9-3.7 g/dL (calc) ALBUMIN/GLOBULIN RATIO 1.8 1.0-2.5 (calc) BILIRUBIN, TOTAL 0.7 0.2-1.2 mg/dL ALKALINE PHOSPHATASE 72 37-153 U/L AST 26 10-35 U/L ALT 17 6-29 U/L CBC (INCLUDES DIFF/PLT) (639 9) Reviewed date:06/26/2024 12:55:44 PM Interpretation: Performing Lab:[facility], [facility], [facility] CenterHznjAA[address] Toni Rosen Notes/Report: NON-FASTING; NON-FASTING; NON-FASTING; NON-FASTING FASTING:YES FASTING: YES WHITE BLOOD CELL COUNT 5.4 3.8-10.8 Thousand/ uL RED BLOOD CELL COUNT 4.86 3.80-5.10 Million/uL HEMOGLOBIN 14.5 11.7-15.5 g/dL HEMATOCRIT 45.4 35.0-45.0 % MCV 93.4 80.0-100.0 fL MCH 29.8 27.0-33.0 pg MCHC 31.9 32.0-36.0 g/dL For adults, a slight decrease in the calculated MCHC value (in the range of 30 to 32 g/dL) is most likely not clinically significant; however, it should be interpreted with caution in correlation with other red cell parameters and the patient's clinical condition. RDW 13.1 11.0-15.0 % PLATELET COUNT 280 140-400 Thousand/uL MPV 10.8 7.5-12.5 fL ABSOLUTE NEUTROPHILS 4158 1632-4604 cells/uL ABSOLUTE LYMPHOCYTES 254 525-9184 cells/uL ABSOLUTE MONOCYTES 448 200-950 cells/uL ABSOLUTE EOSINOPHILS 49 15-500 cells/uL ABSOLUTE BASOPHILS 49 0-200 cells/uL NEUTROPHILS 77 LYMPHOCYTES 12.9 MONOCYTES 8.3 EOSINOPHILS 0.9 BASOPHILS 0.9 TSH W/REFLEX TO FT4 (85091) Reviewed date:06/26/2024 12:55:44 PM Interpretation: Performing Lab:[facility], [employer] staffe[address], VerblingYkfyVX[address] Toni Rosen Notes/Report: NON-FASTING; NON-FASTING; NON-FASTING; NON-FASTING FASTING:YES FASTING: YES TSH W/REFLEX TO FT4 4.50 0.40-4.50 mIU/L HELICOBACTER PYLORI AG, EIA, STOOL (39880) Reviewed date:07/27/2024 12:33:32 PM Interpretation: Performing Lab:[facility] [employer] staffe135LoLotel BlSpecialized Pharmaceuticalss, VerblingJaehCT[address] Toni Rosen Notes/Report: NON-FASTING HELICOBACTER PYLORI AG, EIA, STOOL SEE NOTE HELICOBACTER PYLORI AG, EIA, STOOL Micro Number: [id number] Test Status: Final Specimen Source: Stool Specimen Quality: Adequate H.pylori Ag: Not Detected Antimicrobials, proton pump inhibitors, and bismuth preparations inhibit H. pylori and ingestion up to two weeks prior to testing may cause false negative results. If clinically indicated the test should be repeated on a new specimen obtained two weeks after discontinuing treatment. Reference Range: Not Detected COMPREHENSIVE METABOLIC PANE L (49611) Reviewed date:09/27/2023 12:24:28 PM Interpretation: Performing Lab:[facility], [employer] [address], rocket staffHltrFB[address] Toni Rosen Notes/Report: NON-FASTING NON-FASTING NON-FASTING NON-FASTING NON-FASTING GLUCOSE 92 65-99 mg/dL Fasting reference interval UREA NITROGEN (BUN) 9 7-25 mg/dL CREATININE 0.95 0.60-0.95 mg/dL EGFR 60 > OR = 60 mL/min/1.73m2 BUN/CREATININE RATIO SEE NOTE: - (calc) Not Reported: BUN and Creatinine are within reference range. SODIUM 141 135-146 mmol/L POTASSIUM 4.3 3.5-5.3 mmol/L CHLORIDE 100 98-110 mmol/L CARBON DIOXIDE 30 20-32 mmol/L CALCIUM 10.1 8.6-10.4 mg/dL PROTEIN, TOTAL 7.3 6.1-8.1 g/dL ALBUMIN 4.5 3.6-5.1 g/dL GLOBULIN 2.8 1.9-3.7 g/dL (calc) ALBUMIN/GLOBULIN RATIO 1.6 1.0-2.5 (calc) BILIRUBIN, TOTAL 0.7 0.2-1.2 mg/dL ALKALINE PHOSPHATASE 66 37-153 U/L AST 26 10-35 U/L ALT 18 6-29 U/L CBC (INCLUDES DIFF/PLT) (639 9) Reviewed date:09/27/2023 12:24:28 PM Interpretation: Performing Lab:[facility] [employer] [employer], AmpliMed CorporationQxqoIA[address] Toni Rosen Notes/Report: NON-FASTING NON-FASTING NON-FASTING NON-FASTING NON-FASTING WHITE BLOOD CELL COUNT 5.5 3.8-10.8 Thousand/ uL RED BLOOD CELL COUNT 4.70 3.80-5.10 Million/uL HEMOGLOBIN 14.1 11.7-15.5 g/dL HEMATOCRIT 44.4 35.0-45.0 % MCV 94.5 80.0-100.0 fL MCH 30.0 27.0-33.0 pg MCHC 31.8 32.0-36.0 g/dL RDW 13.5 11.0-15.0 % PLATELET COUNT 251 140-400 Thousand/uL MPV 10.5 7.5-12.5 fL ABSOLUTE NEUTROPHILS 4048 7603-1716 cells/uL ABSOLUTE LYMPHOCYTES 238 373-1461 cells/uL ABSOLUTE MONOCYTES 440 200-950 cells/uL ABSOLUTE EOSINOPHILS 110 15-500 cells/uL ABSOLUTE BASOPHILS 39 0-200 cells/uL NEUTROPHILS 73.6 LYMPHOCYTES 15.7 MONOCYTES 8.0 EOSINOPHILS 2.0 BASOPHILS 0.7 LIPASE (606) Reviewed date:09/27/2023 12:24:28 PM Interpretation: Performing Lab:[facility] [employer] staffe1355 [employer]teD[employer], AmpliMed CorporationGiabGG[address] Toni Rosen Notes/Report: NON-FASTING NON-FASTING NON-FASTING NON-FASTING NON-FASTING LIPASE 43 7-60 U/L NO COLLECTION DATE RECEIVED. WE HAVE USED THE DATE THE SPECIMEN WAS RECEIVED BY THIS LABORATORY THE COLLECTION DATE. IF THIS IS INCORRECT, PLEASE CONTACT CLIENT SERVICES. PHONE NUMBER: [phone] AMYLASE (243) Reviewed date:09/27/2023 12:24:28 PM Interpretation: Performing Lab:[facility], [employer] [address], [facility] CenterXoxyWQ[address] Toni Rosen Notes/Report: NON-FASTING NON-FASTING NON-FASTING NON-FASTING NON-FASTING AMYLASE 71 21-101 U/L TSH (899) Reviewed date:09/27/2023 12:24:28 PM Interpretation: Performing Lab:[facility] [employer] Mnvy[address]64 [address], [place] YrrxPX[address] Toni Rosen Notes/Report: NON-FASTING NON-FASTING NON-FASTING NON-FASTING NON-FASTING TSH 5.00 0.40-4.50 mIU/L Reason For Referral Reason Dr. Wiley Diagnosis 1 Epigastric pain (R10 .13) Referral Organization [facility] Referring Provider First Name Ursula Referring Provider Last Name Cruz Referring Provider Speciality Family Pra ctice Referred Organization [facility] Referred Address [address],[address],[place] Referred Provider Specialty Gastroentero logy General Notes Nayely Manley 2024 12:04:31 PM >, Nayely Manley 06/23/2024 12:07:04 PM >sent to Dr. Wiley Referral Priority Routine Reason Dr. John Alanis at for egd... has seen before Diagnosis 1 Gastroesophageal ref lux disease with esophagitis without hemorrhage (K21.00) Referral Organization [facility] Referring Provider First Name Thomas Referring Provider Last Name Bret Referring Provider Speciality Internal M edicine Referred Organization [facility] Referrals Referred Address [address] [place], [place],[address],[place] Referred Provider Specialty Gastroentero logy General Notes Nayely Manley 2024 12:04:12 PM >sent to , Nayely Manley 08/08/2024 09:22:29 AM >sent again Referral Priority Urgent Reason Dr. Locke Diagnosis 1 Abnormal stress test (R94.39) Referral Organization [facility] LORENE RG Referring Provider First Name Thomas Referring Provider Last Name Bret Referring Provider Speciality Internal edicine Referred Organization [facility] Referred Address [address] [place], [place],[address],[place] Referred Provider Specialty Cardiovascul ar Disease General Notes Nayely Manley 2024 04:02:10 PM >sent to Dr. Locke at [facility] Referral Priority Routine Reason Please set up CTA of coronary arteries at [facility] if possible-questionably abnormal nuclear stress test Diagnosis 1 Encounter for screen ing for coronary artery disease (Z13.6) Referral Organization [facility] MAXIMUS RG Referring Provider First Name Thomas Referring Provider Last Name Bret Referring Provider [facility] Referred Organization [facility] Referred Address [address] [facility] [address] [facility], [place], [place],[address],[place] Referred Provider Specialty Diagnostic R adiology General Notes Ilan Vogt 05/2024 02:20:55 PM > faxed to [facility] and they will call pt- [place] does not do them, Nayely Manley 09/11/2024 09:14:11 AM >Scheduled at [facility] 09-12-24 at 10- be there at 9. No caffeine 12 hours prior including chocolate. Nothing to eat or drink 2 hours before, except for water. Can take BP meds in the am if needed., Nayely Manley 09/11/2024 09:16:33 AM >Left a with patient Referral Priority Routine Referral Appointment Date 09/12/2024 Medications Medication SIG (Take, Route, Frequency, Duration) Notes Start Date End Date Status MYLANTA COAT AND COOL 1200 MG-270 MG-80 [...] 90 days BRAND NAME ONLY 11/03/2022 Active Centrum THERAPEUTIC MULTIPLE VITAMINS WITH MINERALS 1 TAB(S) ORALLY ONCE A DAY; Duration: 30 DAY(S) *Please review and pick correct strength-formulatio n from [employer] options. If intended option is not shown, discontinue and re-order from Quick Search* Active Immunizations Vaccine Route Administration Date Status Comme nts SHINGRIX IM Intramuscular 06/22/2024 Administered Prevnar PCV-20 (Pneumococcal conjugate 20) IM Intramuscular 07/31/2021 Administered Fluzone High Dose IM Intramuscular 12/31/2021 Administered Fluzone High Dose IM Intramuscular 12/27/2023 Administered Boostrix IM Intramuscular 01/21/2023 Administered Arexvy IM Intramuscular 01/21/2023 Administered Social History Tobacco Use: Social History Observation Description Date Details (start date - stop date) Never Smoker NA - NA Smoking: Question Answer Notes Are you a: nonsmoker Problems Problem Type SNOMED Code ICD Code Onset Dates Problem Status W/U Status Risk Notes Problem Sore throat (576594421) Sore throat (J02.9) Active confirmed Problem Essential hypertension (47741596) Essential hypertension (I10) Active confirmed Problem Seasonal allergy (807597052) Seasonal allergies (J30.2) Active confirmed Problem Acquired hypothyroidism (966122111) Acquired hypothyroidism (E03.9) Active confirmed Problem Generalized anxiety disorder (79408115) LEANDRO (generalized anxiety disorder) (F41.1) Active confirmed Problem Tinnitus of left ear (4694491980516) Left-sided tinnitus (H93.12) Active confirmed Problem Single subsegmental pulmonary embolism without acute cor pulmonale (I26.93) Active confirmed Problem Gastroesophageal reflux disease with esophagitis (disorder) (248408211) Gastroesophageal reflux disease with esophagitis without hemorrhage (K21.00) Active confirmed Problem Gastroesophageal reflux disease (721228051) Gastroesophageal reflux disease, unspecified whether esophagitis present (K21.9) Active confirmed Problem Protein S deficiency (0233855) Protein S deficiency (D68.59) Active confirmed Vital Signs Heart Rate 68 /min 09/07/2024 Temperature 98 degrees Fahrenheit 09/07/2024 Blood pressure diastolic 78 mm Hg 09/07/2024 Height 5 ft 2 in in 09/07/2024 Blood pressure systolic 128 mm Hg 09/07/2024 Weight 110 lbs 09/07/2024 BMI 20.12 kg/m2 09/07/2024 Encounters Encounter Location Date Provider Diagnosis [facility] [address] [place] [address] 06/10/2024 Provider Migration Gastroesophageal reflux disease with esophagitis without hemorrhage K21.00 [facility] [place] [address] [address] 09/24/2023 Ursula McNees Epigastric pain R10. 13 and Fatigue, unspecified type R53.83 [facility] [address] [place], [place] [address] 12/27/2023 Thomas Besson Essential hypertensi on I10 ; Acquired hypothyroidism E03.9 ; Protein S deficiency D68.59 ; Gastroesophageal reflux disease with esophagitis without hemorrhage K21.00 and Immunization(s) administered Z23 [facility] [place] [address] [place], [place] [address] 05/11/2024 Ursula McNees Essential hypertensi on I10 ; Acquired hypothyroidism E03.9 ; Protein S deficiency D68.59 and Gastroesophageal reflux disease with esophagitis without hemorrhage K21.00 [facility] [place] [address] [address] 06/08/2024 Thomas Besson Essential hypertensi on I10 and Gastroesophageal reflux disease with esophagitis without hemorrhage K21.00 [facility] [address] [place], [place] [address] 06/22/2024 Ursula McNees Essential hypertensi on I10 ; Encounter for Medicare annual wellness exam Z00.00 ; Acquired hypothyroidism E03.9 ; Protein S deficiency D68.59 ; Gastroesophageal reflux disease with esophagitis without hemorrhage K21.00 ; BMI 20.0-20.9, adult Z68.20 ; Epigastric pain R10.13 and Encounter for immunization Z23 [facility] [address] [place] [address] 07/03/2024 Thomas Besson Infectious diarrhea A09 [facility] [address] [place] [address] 07/10/2024 Thomas Besmaylin Pain in right leg M79.604 ; Pain in left leg M79.605 and Abdominal pain, generalized R10.84 [facility] [address] [facility] [address] [place] [address] 07/20/2024 Fay Thomas Left upper quadrant pain R10.12 and Gastroesophageal reflux disease, unspecified whether esophagitis present K21.9 [facility] [address] [place] [address] 08/03/2024 Thomas Besson Gastroesophageal ref lux disease with esophagitis without hemorrhage K21.00 [facility] [place] [address] [facility] [address] [place] [address] 08/07/2024 Thomas Besson Gastroesophageal ref lux disease with esophagitis without hemorrhage K21.00 and Essential hypertension I10 [facility] [address] [place] [address] 09/07/2024 Thomas Besson Essential hypertensi on I10 ; Gastroesophageal reflux disease with esophagitis without hemorrhage K21.00 and Encounter for screening for coronary artery disease Z13.6 [facility] [address] [facility] [address] [place] [address] 09/13/2023 Thomas Besson [facility] [address] [facility] [address] [place] [address] 10/26/2023 Thomas Besson [facility] [address] [facility] [address] [place] [address] 11/22/2023 Ursula Arroyo Knee pain M25.569 [facility] [place] [address] [place] [address] 03/22/2024 Fay Carballo [facility] [address] [place] [address] 05/10/2024 Thomas Besson [facility] [address] [facility] [address] [place] [address] 05/11/2024 Ursula Arroyo [facility] [address] [place] [address] 06/30/2024 Thomas Besson [facility] [address] [place] [address] 07/20/2024 Thomas Besson [facility] [address] [place] [address] 08/02/2024 Thomas Besson [facility] [address] [place] [address] 08/23/2024 Thomas Besson [facility] [address] [place] [address] 09/06/2024 Thomas Besson Assessments Encounter Date Diagnosis (ICD Code) Assessment Notes Treatment Notes Treatment Clinical Notes Section Notes 09/24/2023 Epigastric pain (ICD-10 - R10.13) Exam unremarkable. Symptoms likely related to GERD. Continue PPI. Discussed etiology of reflux. Avoid certain foods that exacerbate symptoms, such as caffeine and spicy foods. Labs as below to evaluate for underlying pathology. Return precautions discussed. 09/24/2023 Fatigue, unspecified type (ICD-10 - R53.83) 11/22/2023 Knee pain (ICD-10 - M25.569) 12/27/2023 Essential hypertension (ICD-10 - I10) Blood pressure excellent. No changes in plan. Check kidney function. Check TSH to monitor if we need to change therapy at this point. Please note I will review all labs personally 12/27/2023 Acquired hypothyroidism (ICD-10 - E03.9) 06/08/2024 Essential hypertension (ICD-10 - I10) Continue amlodipine 2.5. recommend keeping a blood pressure log over next 2 weeks until next appt. 05/11/2024 Essential hypertension (ICD-10 - I10) Stop amlodipine to decrease bill burden. RTC in 4-6 weeks for annual wellness/labs 05/11/2024 Acquired hypothyroidism (ICD-10 - E03.9) Continue synthroid 06/22/2024 Essential hypertension (ICD-10 - I10) Blood pressure at goal 06/22/2024 Encounter for Medicare annual wellness exam (ICD-10 - Z00.00) Vaccines- Prevnar, flu and RSV utd Shingrix series started today Aged out for mammogram/colonosc opy 07/20/2024 Left upper quadrant pain (ICD-10 - R10.12) 07/20/2024 Gastroesophageal reflux disease, unspecified whether esophagitis present (ICD-10 - K21.9) 08/03/2024 Gastroesophageal reflux disease with esophagitis without [...] trial to see if Dr. Alanis at [facility] is available. She would prefer this route anyway. 08/07/2024 Essential hypertension (ICD-10 - I10) Blood pressure is excellent. Patient an outstanding cardiovascular condition 08/07/2024 Gastroesophageal reflux disease with esophagitis without hemorrhage (ICD-10 - K21.00) Will continue proton pump inhibitor. We have already reached out to Dr. Bundy office to schedule EGD fairly quickly 09/07/2024 Essential hypertension (ICD-10 - I10) - BP well controlled, 120s/70s in clinic - Continue amlodipine 2.5mg 09/07/2024 Gastroesophageal reflux disease with esophagitis without hemorrhage (ICD-10 - K21.00) - EGD showing reflux esophagitis and small hiatal hernia - Currently on Nexium for last week and reports imrpovement in symptoms, no longer taking nightly Mylanta 07/03/2024 Infectious diarrhea (ICD-10 - A09) Well-hydrated. No indication for IV fluids or other issues at this point. Treat empirically with Cipro, follow-up at the end of the week if not better 07/10/2024 Pain in right leg (ICD-10 - M79.604) I do not think her leg pain is related to tendinopathy or Achilles damage. I have reassured her. She does a lot of gardening this time of year and I think she has got some overuse. She tries to avoid any kind of pain medicine but I told her that a couple of Tylenol every morning would be a very reasonable choice for her. 07/10/2024 Pain in left leg (ICD-10 - M79.605) 07/10/2024 Abdominal pain, generalized (ICD-10 - R10.84) I do not think this is hiatal hernia or epigastric pain per se. Continue Tylenol as noted above. She has an appointment with GI to investigate her history of hiatal hernia. 09/07/2024 Encounter for screening for coronary artery [...] order coronary CTA to evaluate for CAD 05/11/2024 Protein S deficiency (ICD-10 - D68.59) Remains on DOAC. No complications. 06/22/2024 Acquired hypothyroidism (ICD-10 - E03.9) Continue synthroid 06/08/2024 Gastroesophageal reflux disease with esophagitis without hemorrhage (ICD-10 - K21.00) start using pepcid every evening for GERD. Can continue mylanta PRN. 06/10/2024 Gastroesophageal reflux disease with esophagitis without hemorrhage (ICD-10 - K21.00) 12/27/2023 Protein S deficiency (ICD-10 - D68.59) Remains on DOAC. No complications. 12/27/2023 Gastroesophageal reflux disease with esophagitis without hemorrhage (ICD-10 - K21.00) Discussed needed to take Nexium daily, on an empty stomach and she will do this. I will send a prescription if she has been purchasing this lomv-soe-ixiotdl 05/11/2024 Gastroesophageal reflux disease with esophagitis without hemorrhage (ICD-10 - K21.00) Continue PPI 06/22/2024 Protein S deficiency (ICD-10 - D68.59) Remains on DOAC. No complications. CBC drawn today 12/27/2023 Immunization(s) administered (ICD-10 - Z23) 06/22/2024 Gastroesophageal reflux disease with esophagitis without hemorrhage (ICD-10 - K21.00) Change to Voquenza. MOA and SE profile discussed. Refer to GI for EGD consideration 06/22/2024 BMI 20.0-20.9, adult (ICD-10 - Z68.20) BMI stable from previous visit Add protein to all meals Will continue to monitor 06/22/2024 Epigastric pain (ICD-10 - R10.13) Likely related to gastritis, can not r/o ulcer or hiatal hernia. Refer to GI 06/22/2024 Encounter for immunization (ICD-10 - Z23) 09/07/2024 Other Please note reviewed prior notes from multiple subspecialist , GI, cardiology. Discussed with patient in detail pros and cons of different testing. Complex visit given her multiple comorbid conditions and her need for shared decision making Plan Of Treatment Pending Test Test Name Order Date MRA : Head 06/23/2022 Miscell Ref Lab Test 04/23/2022 Physical Therapy : Vertigo 08/19/2022 Physical Therapy Eval and Treat 11/22/19 24 CTA : Coronary 09/07/2024 Next Appt Details Provider Name:Thomas Vargas Bret, 10/19/2024 09:15:00 AM, [address], [address], Insurance Providers Payer Name Payer Address Payer Phone Subscriber Number Group Number Insured Name Patient Relationship to Insured Coverage Start Date Coverage End Date [employer] [address] [address] [place] [address] [id number] Peggy Mcbride Self - patient is the insured Medical (General) History Medical History History ICD Code Hypothyroidism PE (05/16/2021) DVT (Right leg 02/2018) GERD Varicose Veins- has had them stipped in 2008 Hiatal Hernia - EGD 08/30 - gastritis - b iopsies negative Shingles 2005 Protein S deficiency Surgical History Surgery Date(Month/Year) Cyst removed from between breasts 05/2021 Hysterectomy 2001 Hospitalization History Reason Date(Month/Year) hysterectomy 2001
--- OUTSIDE RECORDS SUMMARY | 2024-09-12 08:39 | XMS_ITS | Clinical Summary ---
Author Organization [employer] ([place], [place], [place], [place]) Address [address] [place] [address] Care Team Providers Care Physical Instructor Name Role Phone Unavailable Primary Care Provider Unavailabl e Encounters Date Type Department Care Team Description 08/08/2024 Outside Orders [facility] Gastroenterology [address] [place] [address] [address] [place] [address] Jennie Pandya Gastroesophageal reflux disease [...] Plan of Treatment Not on file Insurance [facility] MEDICARE ADVANTAGE
--- OUTSIDE RECORDS SUMMARY | 2024-09-12 08:39 | XMS_ITS | Encounter Summary ---
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 Role Phone Unavailable Primary Care Provider Unavailabl e Reason for Referral * Surgical (Routine) - Authorized Specialty Diagnoses / Procedures Referred By Contac t Referred To Contact Gastroenterology Diagnoses Gastroesophageal reflux disease with esophagitis without hemorrhage Thomas Queen MD [address] [facility] [address] [place] [address] Phone: tel: fax: [facility] Gastroenterology [address] [facility] [address] [place] [address] Phone: tel: fax: Referral ID Status Reason Start Date Expiration Date Visits Requested Visits Authorized [id number] Authorized Specialty Services Required 08/08/2024 08/08/2025 1 1 Encounter Details Date Type Department Care Team (Latest Contact Info) Description 08/08/2024 Outside Orders [facility] Gastroenterology [address] [facility] [address] [place] [address] Jennie Pandya Gastroesophageal reflux disease [...]
[2024-09-12 09:19] VITALS: BMI 19.9
[2024-09-12 09:23] VITALS: BP 164/78; PULSE 61; RESP 18; TEMP 36.6; O2SAT 99
[2024-09-12 09:42] LABS: Anion Gap 13.0 mEq/L (5-15); Blood Urea Nitrogen 13 mg/dl (7-17); Calcium 9.8 mg/dl (8.4-10.2); Carbon Dioxide 33 mmol/L (22.0-30.0); Chloride 98 mmol/L (98-107); Creatinine Clearance Estimated 34 mL/min (50-200); Creatinine,Serum 0.90 mg/dl (0.52-1.04); Estimated Glomerular Filt Rate 60 ml/min (>60); GFR (African American) 73 ML/MIN (>60); Glucose 95 mg/dl (74-100); Potassium 4.0 mmoL/L (3.5-5.1); Sodium 140 mmol/L (136-145)
[2024-09-12 10:20] VITALS: BP 195/84; PULSE 55; RESP 16; O2SAT 96
[2024-09-12 10:25] VITALS: BP 185/83; PULSE 61; RESP 16; O2SAT 98
[2024-09-12] MEDS: SODIUM CHLORIDE 0.9% 10ML SYR (RAD ONLY) 10 ML IV (10:34)
[2024-09-12] MEDS: 0.9 % SODIUM CHLORIDE 50 ML VIAL IV (10:34)
[2024-09-12] MEDS: IOPAMIDOL-370 (76%);100ML BOTTLE 85 ML IV (10:34)
== END 2024-09-12 10:40 | disposition home or self-care (01) ==
PROVIDERS: Internal Medicine; PCP Internal Medicine Adolescent Medicine; Visit Provider Internal Medicine Adolescent Medicine
DX: I25.10 Atherosclerotic heart disease of native coronary artery without angina pectoris (principal)
CPT/HCPCS: 75574; 80048; Q9967

== ENCOUNTER 2024-09-21 14:37 | Observation (INO) | payer MEDICARE, SELFPAY ==
[2024-09-21] VITALS (22 sets, daily range): BP systolic 115–182; BP diastolic 67–105; PULSE 52–84; RESP 14–20; TEMP 36.8; O2SAT 92–100; BMI 20.2
--- NOTE | 2024-09-21 07:11 | IR_ITS ---
APPROVED REPORT Patient Location: Outpatient Associate Marketing Manager: Yogesh Oliver, RT (R) PROCEDURES Left heart catheterization Left ventriculogram Selective coronary angiogram Drug-eluting stent deployment to the ostial proximal mid and distal dominant right coronary artery in a continuous manner Intravascular ultrasound INDICATION Coronary artery disease, Complex intervention, Abnormal CCTA, Abnormal Myoview Informed consent was obtained prior to the procedure. COMPLICATIONS NONE Estimated Blood Loss: LESS THAN 10 ML TECHNIQUE One percent lidocaine used to anesthetize the right anterior aspect of the wrist. The right radial artery was accessed via the Seldinger technique. A 6 Italian sheath was placed in the right radial artery. 2.5 mg of Verapamil, 800 mcg of nitroglycerin, 1mg Lidocaine and 5000 U Heparin were given through the arterial sheath. The JL3 catheter was also used to perform left heart catheterization, left ventriculogram and selective coronary angiogram. Therapeutic heparin was administered giving a therapeutic ACT at the end the diagnostic angiogram there was a dissection identified in the ostial segment of the right coronary artery. Because of the angle of attack of the catheter I decided to obtain right groin access to make sure the dissection did not propagate. The 3 DRC guide catheter was placed in the right coronary cusp and a Choice PT extra-support wire was placed into the true lumen and then distally in the right coronary artery. A 3 mm x 38 mm Hunter frontier stent was deployed at 20 lana in the proximal right coronary artery reducing the stenosis and tacking back the dissection. An additional 3.5 x 26 mm Hunter frontier stent was placed distal to the first in the ostial overlapping and deployed at 16 lana. The balloon was brought back and deployed at 14 lana to match the stents. An additional 3.5 x 15 mm Hunter frontier stent was placed on the right coronary cusp covering the ostium and overlapping with the first stent deployed. This was deployed at 20 lana. Intravascular ultrasound probe was then advanced which demonstrated the midportion was slightly under deployed and not fully expanded. A 3.5 x 15 mm noncompliant balloon was deployed at 18 lana from the distal right coronary artery back into the ostial proximal segment. Excellent angiographic results were obtained with ADRIANA-3 flow being present before and after the procedure. At the end of the procedure the apparatus was removed the groin is reprepped closure change sheath was removed and hemostasis was achieved using Perclose device patient was transferred to the postop putting in stable condition for right arterial sheath removal and postoperative care ANGIOGRAPHIC RESULTS The left main artery Normal The left anterior descending artery Has proximal 10% calcifications with mild 10% calcifications. Small first diagonal artery has an eccentric 50% stenosis The circumflex artery Nondominant extremely tortuous with mild 10% luminal regularities The right coronary artery Large and dominant with proximal 30% stenosis followed by tandem 30% stenosis with an eccentric mid vessel 80% stenosis. Distally large posterolateral branch has an eccentric 30% stenosis The PENA ventriculogram reveals Hyperdynamic at 75% The left ventricular end-diastolic pressure 15 mmHg IMPRESSION Severe disease in the right coronary and is described above with successful stenting of the ostial proximal mid and distal right coronary artery reducing dissection and severe disease to 0% with 3 contiguous drug-eluting stents Moderate disease in a small diagonal artery best treated medically Hyperdynamic ventricle Borderline LVEDP PLAN 1. Plavix and aspirin 2. Patient will be admitted overnight due to dual arterial access 3. LDL less than 55 due to the time intensity statin 4. Avoidance of tobacco products 5. Risk factor modification 6. Cardiac rehabilitation Electronically signed by : Fito Self MD 09/21/2024 13:37:55
[2024-09-21 10:59] LABS: Hematocrit 41.3 % (37.0-47.0); Hemoglobin 13.5 g/dL (12.2-16.2); Immature Granulocytes % 0.2 %; Mean Corpuscular HGB Conc 32.7 g/dL (31.8-35.4); Mean Corpuscular Hemoglobin 30.1 pg (27.0-31.2); Mean Corpuscular Volume 92.2 fl (81-99); Nucleated Red Blood Cells % 0 %; Platelet Count 271 K/mm3 (142-424); Red Blood Count 4.48 M/mm3 (4.20-5.40); Red Cell Distribution Width-SD 46.7 fL; White Blood Count 5.5 K/mm3 (4.8-10.8)
[2024-09-21 11:28] LABS: Anion Gap 14.4 mEq/L (5-15); Blood Urea Nitrogen 14 mg/dl (7-17); Calcium 10.1 mg/dl (8.4-10.2); Carbon Dioxide 31 mmol/L (22.0-30.0); Chloride 98 mmol/L (98-107); Creatinine Clearance Estimated 34 mL/min (50-200); Creatinine,Serum 0.80 mg/dl (0.52-1.04); Estimated Glomerular Filt Rate 69 ml/min (>60); GFR (African American) 83 ML/MIN (>60); Glucose 104 mg/dl (74-100); Potassium 4.4 mmoL/L (3.5-5.1); Sodium 139 mmol/L (136-145)
[2024-09-21] MEDS: VERAPAMIL 2.5MG/ML 2ML VIAL 2.5 MG IV (11:40)
[2024-09-21] MEDS: 0.9 % SODIUM CHLORIDE 500 ML 25 ML IV (11:40)
[2024-09-21] MEDS: LIDOCAINE 1% 10ML MDV 10 ML IJ (11:40)
[2024-09-21] MEDS: HEPARIN 1,000 UNITS/ML 10ML VIAL (CATH LAB) 5000 UNIT IV (11:41)
[2024-09-21] MEDS: NITROGLYCERIN 800MCG/8ML SYR (CATH LAB) 800 MCG IA (11:41)
[2024-09-21] MEDS: HEPARIN 1,000 UNITS/500ML NS (CATH LAB) 3000 UNIT IV (11:41)
[2024-09-21] MEDS: MIDAZOLAM HCL 1MG/ML 5ML VIAL 1 MG IV (13:02)
[2024-09-21] MEDS: FENTANYL 100MCG/2ML VIAL 50 MCG IV (13:03)
--- NOTE | 2024-09-21 13:54 | CA_ITS ---
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 Measurements are obtained. Grossly, the left ventricle is normal in size and systolic function. No evidence of pericardial effusion in the available views. Electronically signed by : Alexandria Figueroa MD 09/21/2024 22:49:42
--- NOTE | 2024-09-21 14:45 | HMH.PHAINT1 ---
Pharmacy Intervention Comments: MEDICATION RECONCILIATION COMPLETED ON PATIENT USING EXTERNAL FILL HISTORY FROM PHARMACY. -LIZZ WASHINGTON, SOLANGED
[2024-09-21] MEDS: IOPAMIDOL-370 (76%);100ML BOTTLE 150 ML IV (15:04)
[2024-09-21 15:06] LABS: CATHL Activated Clotting Time 216 SEC (74-125)
--- NOTE | 2024-09-21 18:17 | P.HP_ITS ---
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 Received 3 drug-eluting stents to the RCA. However, RCA was mildly dissected that was reduced during LHC and Dr. Self requested admission for monitoring overnight. On my evaluation, patient was sitting comfortably in bed without any distress. Denies chest pain, shortness of breath, dizziness. CBC, BMP unremarkable. PFSH [facility] Disclaimer: The information contained in this section may have been updated after the patient was seen, as this information can be updated by other users. Medical History Abnormal cardiovascular stress test Angina pectoris Other chest pain Hiatal hernia GERD (gastroesophageal reflux disease) HLD (hyperlipidemia) History of pulmonary embolus (PE) Personal history of DVT (deep vein thrombosis) HTN (hypertension) Encounter for pre-operative cardiovascular clearance Abnormal electrocardiogram [ECG] [EKG] SNHL (sensorineural hearing loss) Dysfunction of eustachian tube Tinnitus Social History (Updated 09/21/24 @ 15:51 by Rona French RN) Smoking Status: Never smoker alcohol intake: never substance use type: denies use current occupational status: retired Travel in the last 8 weeks?: None household members: spouse housing: house Have you lived/traveled outside US in past 30 days?: No Contact w/someone who lives/traveled outside US past 30 days?: No Exposure to someone with infectious disease in past 14 days?: No Do you have a fever (greater than 100.4 F or 38 C)?: No Have you tested positive for COVID-19?: No Exposed to someone with COVID-19 in past 14 days?: No Do you have a sore throat?: No Do you have a cough?: No Do you have any weakness?: No Do you have any diarrhea?: No Are you experiencing any unusual bleeding?: No Do you have any muscle aches/pain?: No Do you have any abdominal pain?: No Are you experiencing loss of taste or smell?: No Other Medical History Have you received the Flu Vaccine for this season: Yes Have you received the Pneumonia Vaccine: Yes Meds Home Medications and Allergies Home Medications ?Medication ?Instructions ?Recorded ?Confirmed ?Type levothyroxine 50 mcg tablet 50 mcg PO DAILY 07/02/21 0 09/21/24 History (Synthroid) rivaroxaban 10 mg tablet (Xarelto) 10 mg PO QPMWITHMEA L 04/24/22 09/21/24 History aspirin 81 mg tablet 81 mg PO DAILY #30 tabs 05/0209/21/24 Rx rosuvastatin 10 mg tablet (Crestor) 10 mg PO DAILY #30 tabs 09/06/24 09/21/24 Rx clopidogrel 75 mg tablet (Plavix) 75 mg PO DAILY #30 t abs 09/21/24 Rx esomeprazole magnesium 20 mg 20 mg PO DAILY 09/21/24 0 09/21/24 History capsule,delayed release New Prescriptions to Start Prescriptions: clopidogrel [Plavix] Fito Self Allergies Allergy/AdvReac Type Severity Reaction Status Date / Time ciprofloxacin (From Cipro) Allergy Severe Other Verified 09/20/24 11:14 Exam Data for Last 24 hours Vital signs and Labs for Last 24 Hours: Pulse Resp BP Pulse Ox O2 Del Method 70 18 166/87 H 95 Room Air 09/21/24 17:30 09/21/24 17:30 09/21/24 17:30 09/21/24 17:30 09/21/24 17:30 Laboratory Results - last 24 hr 09/21/24 10:43: WBC 5.5, RBC 4.48, Hgb 13.5, Hct 41.3, MCV 92.2, MCH 30.1, MCHC 32.7, RDW 13.7, Plt Count 271, MPV 10.0, Neut % (Auto) 74.7, Lymph % (Auto) 14.2, [place] % (Auto) 9.3, Eos % (Auto) 0.9, Baso % (Auto) 0.7, Neut # (Auto) 4.1, Lymph # (Auto) 0.8, [place] # (Auto) 0.5, Eos # (Auto) 0.1, Baso # (Auto) 0.0, Sodium 139, Potassium 4.4, Chloride 98, Carbon Dioxide 31 H, Anion Gap 14.4, BUN 14, Creatinine 0.80, Estimated Creat Clear 34, Estimated GFR 69, Est GFR ( Amer) 83, Glucose 104 H, Calcium 10.1 09/21/24 12:51: Activated Clotting Time 216 H* I & O for Last 24 hours: Intake & Output 09/18/24 09/19/24 09/20/24 09/21/24 23:59 23:59 23:59 23:59 Intake Total 120 / 120 Output Total 250 / 250 Balance -130 / -130 Weight 50.349 kg Constitutional Constitutional: no acute distress *Routine HEENT Exam Head: Present normocephalic Eye: Present EOMI and PERRL ENT: Present mucous membranes moist *Routine Neck Exam Neck: Present supple; Absent lymphadenopathy *Routine Respiratory Exam Respiratory: Present CTA bilaterally *Routine Cardiovascular Exam Cardiovascular: Present RRR *Routine Abdominal Exam Abdominal: Present soft and normoactive bowel sounds; Absent tenderness *Routine Rectal Exam Rectal:: deferred *Routine Genitalia Exam Genitalia:: deferred *Routine Extremities Exam Extremities: Absent cyanosis, clubbing or edema *Routine Skin Exam Skin: Present warm; Absent rash *Routine Neurological Exam Neurological: Present alert and oriented X3 Assessment and Plan *Assessment and plan (1) Abnormal cardiovascular stress test: Status: Acute Category: Medical Code(s): R94.39 - Abnormal result of other cardiovascular function study (2) CAD (coronary artery disease): Status: Acute Category: Medical Code(s): I25.10 - Atherosclerotic heart disease of [place] coronary artery without angina pectoris Plan Peggy Mcbride is a 84-year-old female with a medical history significant for hypothyroidism, 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 Received 3 drug-eluting stents to the RCA. However, RCA was mildly dissected that was reduced during C and Dr. Self requested admission for monitoring ov [facility]. On my evaluation, patient was sitting comfortably in bed without any distress. Denies chest pain, shortness of breath, dizziness. CBC, BMP unremarkable. #CAD ? S/p PCI on 09/21/2024 with 3 stents to the RCA. Some dissection of the RCA which was reduced during [facility], will monitor overnight. ? Currently comfortable, chest pain-free. Vital signs stable. ? Continue aspirin 81 mg, Plavix 75 mg, atorvastatin 40 mg. ? Continuous cardiac telemetry. #History of DVTs, PEs ? Hold DOAC's tonight in the setting of right femoral access for LHC. ? Plan to resume in 2 days. #Hypothyroidism ? Continue home levothyroxine 50 mcg, follow-up TFTs. #GERD ? Continue home PPI Full code DVT prophylaxis: Lovenox
[2024-09-21 18:54] LABS: Cholesterol 202 mg/dl (140-200); HDL Cholesterol 70 mg/dl (40-60); Triglycerides 70 mg/dl (30-150)
[2024-09-21 19:04] LABS: Hemoglobin A1C 6.3 % (4.0-6.0)
[2024-09-21 19:25] LABS: Thyroid Stimulating Hormone 4.85 uIU/mL (0.465-4.68)
[2024-09-21] MEDS: ONDANSETRON 4MG/2ML VIAL 4 MG IV (19:52)
[2024-09-21] MEDS: PANTOPRAZOLE 40MG TABLET 40 MG PO (20:32)
[2024-09-21] MEDS: ACETAMINOPHEN 325MG TAB 650 MG PO (20:32)
[2024-09-22] VITALS (7 sets, daily range): BP systolic 114–159; BP diastolic 67–83; PULSE 68–92; RESP 13–24; TEMP 36.4–36.9; O2SAT 94–98; BMI 20.5
[2024-09-22] MEDS: LEVOTHYROXINE 50MCG (0.05MG) TAB 50 MCG PO (04:22)
[2024-09-22 05:38] LABS: Hematocrit 37.9 % (37.0-47.0); Hemoglobin 12.4 g/dL (12.2-16.2); Immature Granulocytes % 0.2 %; Mean Corpuscular HGB Conc 32.7 g/dL (31.8-35.4); Mean Corpuscular Hemoglobin 30.0 pg (27.0-31.2); Mean Corpuscular Volume 91.8 fl (81-99); Nucleated Red Blood Cells % 0 %; Platelet Count 256 K/mm3 (142-424); Red Blood Count 4.13 M/mm3 (4.20-5.40); Red Cell Distribution Width-SD 47.2 fL; White Blood Count 9.2 K/mm3 (4.8-10.8)
[2024-09-22 05:51] LABS: Anion Gap 15.5 mEq/L (5-15); Blood Urea Nitrogen 15 mg/dl (7-17); Calcium 9.7 mg/dl (8.4-10.2); Carbon Dioxide 27 mmol/L (22.0-30.0); Chloride 100 mmol/L (98-107); Creatinine Clearance Estimated 35 mL/min (50-200); Creatinine,Serum 0.90 mg/dl (0.52-1.04); Estimated Glomerular Filt Rate 60 ml/min (>60); GFR (African American) 73 ML/MIN (>60); Glucose 111 mg/dl (74-100); Potassium 4.5 mmoL/L (3.5-5.1); Sodium 138 mmol/L (136-145)
[2024-09-22] MEDS: CLOPIDOGREL 75MG TAB 75 MG PO (08:24)
[2024-09-22] MEDS: ASPIRIN EC 81MG TABLET 81 MG PO (08:24)
--- NOTE | 2024-09-22 10:41 | P.DS_ITS ---
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 Received 3 drug-eluting stents to the RCA. However, RCA was mildly dissected that was reduced during LHC and Dr. Self requested admission for monitoring overn ight. On my evaluation, patient was sitting comfortably in bed without any distress. Denies chest pain, shortness of breath, dizziness. CBC, BMP unremarkable. 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 Received 3 drug-eluting stents to the RCA. However, RCA was mildly dissected that was reduced during LHC and Dr. Self requested admission for monitoring overnight. On my evaluation, patient was sitting comfortably in bed without any distress. Denies chest pain, shortness of breath, dizziness. CBC, BMP unremarkable. #CAD ? S/p PCI on 09/21/2024 with 3 stents to the RCA. Some dissection of the RCA which was reduced during LHC, will monitor overnight. ? Currently comfortable, chest pain-free. Vital signs stable. ? Discharged with aspirin 81 mg, Plavix 75 mg, atorvastatin 40 mg. #History of DVTs, PEs ? Hold DOAC's tonight in the setting of right femoral access for LHC. ? Plan to resume tomorrow.. #Hypothyroidism ? Continue home levothyroxine 50 mcg. TFTs unremarkable. #GERD ? Continue home PPI. Exam Data for Last 24 hours Vital signs and Labs for Last 24 Hours: Temp Pulse Resp BP Pulse Ox O2 Del Method 97.5 F L 92 H 20 159/83 H 98 Room Air 09/22/24 08:01 09/22/24 08:01 09/22/24 08:01 09/22/24 08:01 09/22/24 08:01 09/22/24 09:00 Laboratory Results - last 24 hr 09/21/24 10:43: WBC 5.5, RBC 4.48, Hgb 13.5, Hct 41.3, MCV 92.2, MCH 30.1, MCHC 32.7, RDW 13.7, Plt Count 271, MPV 10.0, Neut % (Auto) 74.7, Lymph % (Auto) 14.2, [place] % (Auto) 9.3, Eos % (Auto) 0.9, Baso % (Auto) 0.7, Neut # (Auto) 4.1, Lymph # (Auto) 0.8, [place] # (Auto) 0.5, Eos # (Auto) 0.1, Baso # (Auto) 0.0, Sodium 139, Potassium 4.4, Chloride 98, Carbon Dioxide 31 H, Anion Gap 14.4, BUN 14, Creatinine 0.80, Estimated Creat Clear 34, Estimated GFR 69, Est GFR (Daniela n Amer) 83, Glucose 104 H, Calcium 10.1 09/21/24 10:44: Hemoglobin A1c 6.3 H, Triglycerides 70, Cholesterol 202 H, LDL Cholesterol Direct 100.20, VLDL Cholesterol 14, HDL Cholesterol 70 H, Cholesterol/HDL Ratio 2.9, TSH 4.85 H 09/21/24 12:51: Activated Clotting Time 216 H* 09/22/24 05:10: WBC 9.2 D, RBC 4.13 L, Hgb 12.4, Hct 37.9, MCV 91.8, MCH 30.0, MCHC 32.7, RDW 14.0, Plt Count 256, MPV 10.3, Neut % (Auto) 80.0, Lymph % (Auto) 8.6 L, [place] % (Auto) 10.5 H, Eos % (Auto) 0.4, Baso % (Auto) 0.3, Neut # (Auto) 7.4, Lymph # (Auto) 0.8, [place] # (Auto) 1.0, Eos # (Auto) 0.0, Baso # (Auto) 0.0, Sodium 138, Potassium 4.5, Chloride 100, Carbon Dioxide 27, Anion Gap 15.5 H, BUN 15, Creatinine 0.90, Estimated Creat Clear 35, Estimated GFR 60, Est GFR ( Amer) 73, Glucose 111 H, Calcium 9.7 I & O for Last 24 hours: Intake & Output 09/19/24 09/20/24 09/21/24 09/22/24 23:59 23:59 23:59 23:59 Intake Total 120 / 120 210 / 210 Output Total 1100 / 1100 350 / 350 Balance -980 / -980 -140 / -140 Weight 50.349 kg 50.439 kg Constitutional Constitutional: no acute distress *Routine HEENT Exam Head: Present normocephalic Eye: Present EOMI and PERRL ENT: Present mucous membranes moist *Routine Neck Exam Neck: Present supple; Absent lymphadenopathy *Routine Respiratory Exam Respiratory: Present CTA bilaterally *Routine Cardiovascular Exam Cardiovascular: Present RRR *Routine Abdominal Exam Abdominal: Present soft and normoactive bowel sounds; Absent tenderness *Routine Extremities Exam Extremities: Absent cyanosis, clubbing or edema *Routine Skin Exam Skin: Present warm; Absent rash *Routine Neurological Exam Neurological: Present alert and oriented X3 Results Data Completed and Pending Labs on day of discharge: Labs from last 24 hours 09/22/24 09/21/24 09/21/24 05:10 12:51 10:44 WBC 9.2 D RBC 4.13 L Hgb 12.4 Hct 37.9 MCV 91.8 MCH 30.0 MCHC 32.7 RDW 14.0 Plt Count 256 MPV 10.3 Neut % (Auto) 80.0 Lymph % (Auto) 8.6 L [place] % (Auto) 10.5 H Eos % (Auto) 0.4 Baso % (Auto) 0.3 Neut # (Auto) 7.4 Lymph # (Auto) 0.8 [place] # (Auto) 1.0 Eos # (Auto) 0.0 Baso # (Auto) 0.0 Activated Clotting Time 216 H* Sodium 138 Potassium 4.5 Chloride 100 Carbon Dioxide 27 Anion Gap 15.5 H BUN 15 Creatinine 0.90 Estimated Creat Clear 35 Estimated GFR 60 Est GFR ( Amer) 73 Glucose 111 H Hemoglobin A1c 6.3 H Calcium 9.7 Triglycerides 70 Cholesterol 202 H LDL Cholesterol Direct 100.20 VLDL Cholesterol 14 HDL Cholesterol 70 H Cholesterol/HDL Ratio 2.9 TSH 4.85 H 09/21/24 10:43 WBC 5.5 RBC 4.48 Hgb 13.5 Hct 41.3 MCV 92.2 MCH 30.1 MCHC 32.7 RDW 13.7 Plt Count 271 MPV 10.0 Neut % (Auto) 74.7 Lymph % (Auto) 14.2 [place] % (Auto) 9.3 Eos % (Auto) 0.9 Baso % (Auto) 0.7 Neut # (Auto) 4.1 Lymph # (Auto) 0.8 [place] # (Auto) 0.5 Eos # (Auto) 0.1 Baso # (Auto) 0.0 Activated Clotting Time Sodium 139 Potassium 4.4 Chloride 98 Carbon Dioxide 31 H Anion Gap 14.4 BUN 14 Creatinine 0.80 Estimated Creat Clear 34 Estimated GFR 69 Est GFR ( Amer) 83 Glucose 104 H Hemoglobin A1c Calcium 10.1 Triglycerides Cholesterol LDL Cholesterol Direct VLDL Cholesterol HDL Cholesterol Cholesterol/HDL Ratio TSH DS: Diagnosis Discharge Diagnosis (1) Abnormal cardiovascular stress test: Status: Acute Code(s): R94.39 - Abnormal result of other cardiovascular function study (2) CAD (coronary artery disease): Status: Acute Code(s): I25.10 - Atherosclerotic heart disease of [place] coronary artery without angina pectoris Meds Home Medications and Allergies Home Medications ?Medication ?Instructions ?Recorded ?Confirmed ?Type levothyroxine 50 mcg tablet 50 mcg PO DAILY 07/02/21 0 10/02/24 History (Synthroid) rivaroxaban 10 mg tablet (Xarelto) 10 mg PO QPMWITHMEA L 04/24/22 10/02/24 Histo ry aspirin 81 mg tablet 81 mg PO DAILY #30 tabs 05/0210/02/24 Rx rosuvastatin 10 mg tablet (Crestor) 10 mg PO DAILY #30 tabs 09/06/24 10/02/24 Rx esomeprazole magnesium 20 mg 20 mg PO DAILY 09/21/24 0 10/02/24 History capsule,delayed release amlodipine 2.5 mg tablet 2.5 mg PO BID #180 tabs 09/07 Rx clopidogrel 75 mg tablet (Plavix) 75 mg PO DAILY #90 t abs 10/04/24 Rx New Prescriptions to Start Prescriptions: Allergies Allergy/AdvReac Type Severity Reaction Status Date / Time ciprofloxacin (From Cipro) Allergy Severe Other Verified 10/02/24 10:36 Discharge Plan Disposition Patient Disposition: Home, Self-Care Condition: Fair Follow up Plan Follow up with: Fito Self MD [Staff Physician, Cardiology] - 10/02/24 10:45 am Thomas Queen MD [Primary Care Provider, Internal Medicine] - 09/27/24 11:30 am Prescriptions/Medication Reconciliation: Continued levothyroxine [Synthroid] 50 mcg tablet 50 mcg PO DAILY aspirin 81 mg tablet 81 mg PO DAILY Qty: 30 2RF rosuvastatin [Crestor] 10 mg tablet 10 mg PO DAILY Qty: 30 2RF esomeprazole magnesium 20 mg capsule,delayed release(DR/EC) 20 mg PO DAILY Xarelto 10 mg tablet 10 mg PO QPMWITHMEAL No Action amlodipine 2.5 mg tablet 2.5 mg PO BID Qty: 180 3RF clopidogrel [Plavix] 75 mg tablet 75 mg PO DAILY Qty: 90 3RF Problem Reconciliation Problems Reviewed?: Yes Patient Discharge Instructions Patient Instructions: DI for Cardiac Catheterization, DI for Moderate Sedation Print Language: Lao Providers Primary Care Provider: Thomas Queen Admit Provider: Fito Self Attending Provider: Nestor Whitehead
--- NOTE | 2024-09-25 11:32 | SW/DCPLANNER ---
Spoke with patient on the phone. Patient stated that she is doing good. Patient stated that she is aware of her upcoming appointments. Patient stated that she was able to get her new medicine picked up from clinic pharmacy. Patient stated that she has no concerns or questions at this time. Larisa Sampson
== END 2024-09-22 11:05 | disposition home or self-care (01) ==
LOC: 2ND 14:38 → ICU 14:49
PROVIDERS: Admitting Provider Internal Medicine; PCP Internal Medicine Adolescent Medicine; Visit Provider Student in an Organized Health Care Education/Training Program
PROC: 4A023N7 Measurement of Cardiac Sampling and Pressure, Left Heart, Percutaneous Approach (ICD-10-PCS; CPT 93452; principal; 2024-09-21 11:30)
DX: I25.119 Atherosclerotic heart disease of native coronary artery with unspecified angina pectoris (principal); R94.31 Abnormal electrocardiogram [ECG] [EKG]; R94.39 Abnormal result of other cardiovascular function study; I10 Essential (primary) hypertension; E78.5 Hyperlipidemia, unspecified; K21.9 Gastro-esophageal reflux disease without esophagitis; K44.9 Diaphragmatic hernia without obstruction or gangrene; Z86.711 Personal history of pulmonary embolism; Z79.02 Long term (current) use of antithrombotics/antiplatelets; Z79.01 Long term (current) use of anticoagulants; Z79.890 Hormone replacement therapy; Z79.899 Other long term (current) drug therapy; Z88.1 Allergy status to other antibiotic agents
CPT/HCPCS: 36415; 80048; 80061; 83036; 84443; 85025; 85347; 92928; 92978; 93308; 93458; 99152; 99153; C1725; C1760; C1769; C1874; C1894; C9600; G0378; J1200; J1644; J2003; J2405; J3010; J7040; Q9967

== ENCOUNTER 2024-10-02 11:33 | Outpatient (RCR) | payer MEDICARE, SELFPAY | END 2024-10-19 08:00 | disposition home or self-care (01) | LOC: CR 11:33 | PROVIDERS: Visit Provider Internal Medicine | DX: Z48.812 Encounter for surgical aftercare following surgery on the circulatory system (principal); Z95.5 Presence of coronary angioplasty implant and graft | CPT/HCPCS: 93798 ==

== ENCOUNTER 2024-11-18 20:40 | Emergency (ER) | payer MEDICARE, SELFPAY ==
--- OUTSIDE RECORDS SUMMARY | 2024-09-27 07:30 | XMS_ITS ---
Author Organization [facility] Address [address] [place] [address] Care Team Providers Care Dj Instructor Name Role Phone Thomas Queen Primary Care Provider Thomas Queen Unavailable Unavailable Allergies Allergen (clinical drug ingredient) Drug/Non Drug Allergy documented on EMR Reaction Allergy Type Onset Date Status ciprofloxacin Cipro Unknown Drug Allergy Act aj REASON FOR VISIT Discharged from [facility] on 09/22/2024, c/o tendinitis Medications Medication SIG (Take, Route, Frequency, Duration) Notes Start Date End Date Status Rosuvastatin Calcium 10 MG 1 tablet Orally Once a day Active Clopidogrel Bisulfate 75 MG 1 tablet Orally Once a day Active Aspirin 81 MG 1 tablet Orally Once a day Active Tylenol 325 MG 1 tablet as needed Orally every 6 hrs Active Xarelto 10 MG TAKE 1 TABLET DAILY at bedtime; Duration: 90 days Active NexIUM 20 MG 1 capsule 1/2 to 1 hour before morning meal Orally Once a day; Duration: 30 day(s) 08/07/2024 Active Synthroid 50 MCG 1 tab(s) orally once a day; Duration: 90 days BRAND NAME ONLY 11/03/2022 Active amLODIPine Besylate 2.5 MG 1 tab(s) orally twice a day Active MYLANTA COAT AND COOL 1200 MG-270 MG-80 MG/10 ML 10 ML ORALLY 1-2 times a day Active Social History Tobacco Use: Social History Observation Description Date Details (start date - stop date) Never Smoker NA - NA Smoking: Question Answer Notes Are you a: nonsmoker Problems Problem Type SNOMED Code ICD Code Onset Dates Problem Status W/U Status Risk Notes Problem Atherosclerotic heart disease of [place] coronary artery without angina pectoris ([id number]) Coronary artery disease involving [place] coronary artery of [place] heart without angina pectoris (I25.10) Active confirmed Vital Signs Temperature 97.8 degrees Fahrenheit 09/28/19 25 Heart Rate 78 /min 09/27/2024 Blood pressure systolic 136 mm Hg 09/28/19 25 Blood pressure diastolic 64 mm Hg 025 Height 5 ft 2 in in 09/27/2024 Weight 118 lbs 09/27/2024 BMI 21.58 kg/m2 09/27/2024 Encounters Encounter Location Date Provider Diagnosis [facility] [address] [place] [address] 09/27/2024 Thomas Queen Coronary artery disease involving [place] coronary artery of [place] heart without angina pectoris I25.10 ; Essential hypertension I10 and Hospital discharge follow-up Z09 Assessments Encounter Date Diagnosis (ICD Code) Assessment Notes Treatment Notes Treatment Clinical Notes Section Notes 09/27/2024 Coronary artery disease involving [place] coronary artery of [place] heart without angina pectoris (ICD-10 - I25.10) - Patient had nuclear stress test with multivessel disease, CTA coronaries confirmed CAD and underwent PCI to RCA with complication of mild dissection and was admitted overnight - Feeling well today, denies SOB or chest pain even prior to procedure - Continue statin, aspirin, clopidigrol and xarelto. Counseled on use - Continue follow up with cardiology 09/27/2024 Essential hypertension (ICD-10 - I10) - BP well controlled - Continue amlodipine, ok to take 5mg daily 09/27/2024 Hospital discharge follow-up (ICD-10 - Z09) Personally reviewed H&P and discharge summary as available from hospital discharge documentation. Reviewed pertinent labs and test done in the hospital. Personally reconciled medication. Patient hospitalized overnight for complications of stent placement that is somewhat obscure in regards to actual reasoning. Regardless, she seems to be doing well., Is now forced to be on DAPT therapy. Will continue to follow closely given her ongoing Xarelto therapy as well Plan Of Treatment Treatment Notes Assessment Notes Coronary artery disease invo lving [place] coronary artery of [place] heart without angina pectoris - Patient had nuclear stress test with multivessel disease, CTA coronaries confirmed CAD and underwent PCI to RCA with complication of mild dissection and was admitted overnight - Feeling well today, denies SOB or chest pain even prior to procedure - Continue statin, aspirin, clopidigrol and xarelto. Counseled on use - Continue follow up with cardiology Essential hypertension - BP well controlled - Continue amlodipine, ok to take 5mg daily Hospital discharge follow-up Personally reviewed H&P and discharge summary as available from hospital discharge documentation. Reviewed pertinent labs and test done in the hospital. Personally reconciled medication. Patient hospitalized overnight for complications of stent placement that is somewhat obscure in regards to actual reasoning. Regardless, she seems to be doing well., Is now forced to be on DAPT therapy. Will continue to follow closely given her ongoing Xarelto therapy as well Next Appt Details Follow Up: prn, Reason: Progress Notes * Indy MCBRIDEOB: 3 (84 yo F)Acc No.[id number]:09/27/2024 HOSP F/U Patient: Peggy CURIEL Provider: Cait Queen MD :1940 A ge:84 Y S ex:Female Date:09/27/2024 Address:[address] [place] [address] [id number] Subjective: * Chief Complaints: * 1 . Discharged from [facility] on 09/22/2024. 2. C/o tendinitis. * HPI: g en: Peggy Mcbride is a 84 yo F here for follow up since hospital discharge for heart cath w/ stent placement in RCA. She was observed overnight for mild dissection. She feels well overall. She is concerned of bruising from cath size in groin but assured her it was in healing stages. She asks about the schedule of her medications and we went over. I ntrim History: Transition of care visit from hospital D ate of admission to hospital: 0 2024, D ate of receipt of hospital admission report: 0 09/22/2024,?Date of discharge from hospital: 0 09/22/2024, D ate of receipt of hospital discharge summary: 0 09/23/2024, D ischarge medications reviewed and reconciled from hospital: M edications left unchanged. Patient notices no difference in functional status, shortness of air or chest pains after stents were placed. Reviewed catheterization notes. * Medical History: H ypothyroidism, PE (05/16/2021), DVT (Right leg 02/2018), GERD, Varicose Veins- has had them stipped in 2008, Hiatal Hernia - EGD 08/30 - gastritis - biopsies negative, Shingles 2004, Protein S deficiency. * Surgical History: C yst removed from between breasts 05/2021, Hysterectomy 2001, 3 Cardiac stents 2024. * Hospitalization/Major Diagno stic Procedure: h ysterectomy 2001, 3 Cardiac stents 2024. * Family History: F ather: . 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 * Medications: T aking Rosuvastatin Calcium 10 MG Tablet 1 tablet Orally Once a day , Taking Clopidogrel Bisulfate 75 MG Tablet 1 tablet Orally Once a day , Taking Aspirin 81 MG Tablet Delayed Release 1 tablet Orally Once a day , Taking Tylenol 325 MG Tablet 1 tablet as needed Orally every 6 hrs , Taking amLODIPine Besylate 2.5 MG Tablet 1 tab(s) orally twice a day , Taking MYLANTA COAT AND COOL 1200 MG-270 MG-80 MG/10 ML SUSPENSION 10 ML ORALLY 1-2 times a day , Taking Synthroid 50 MCG Tablet 1 tab(s) orally once a day , Notes to Pharmacist: BRAND NAME ONLY, Taking Xarelto 10 MG Tablet TAKE 1 TABLET DAILY at bedtime , Taking NexIUM 20 MG Capsule Delayed Release 1 capsule 1/2 to 1 hour before morning meal Orally Once a day , Discontinued Pepcid 40 MG Tablet 1 tablet Orally Once a day , Notes to Pharmacist: prn, Discontinued Vitamin D3 25 MCG Tablet 1 tab(s) orally once a day , Discontinued Centrum THERAPEUTIC MULTIPLE VITAMINS WITH MINERALS TABLET 1 TAB(S) ORALLY ONCE A DAY , Notes to Pharmacist: *Please review and pick correct strength-formulation from Medispan options. If intended option is not shown, discontinue and re-order from Quick Search*, Medication List reviewed and reconciled with the patient * Allergies: C ipro. Objective: * Vitals: N urse: jl, Pain: 0, Temp: 97.8, RR: 18, HR: 78, BP: 136/64, Ht: 5 ft 2 in, Wt: 118, BMI:21.58. * Examination: G eneral Examination: General P leasant and Cooperative, NAD on RA,. Heart: R egular Rate and Rhythm, no murmur, rubs or gallops. Lungs: L CTAB, No wheezes, crackles or rhonchi, Good air movement,. Skin: b ruising in groin area due to heart cath, healing.? Assessment: * Assessment: 1. C oronary artery disease involving [place] coronary artery of [place] heart without angina pectoris - I25.10 (Primary) 2 . E ssential hypertension - I10 3 .?Hospital discharge follow-up - Z09 Plan: * Treatment: 2. E ssential hypertension Notes: - BP well controlled - Continue amlodipine, ok to take 5mg daily 3. H ospital discharge follow-up Notes: Personally reviewed H&P and discharge summary as available from hospital discharge documentation. Reviewed pertinent labs and test done in the hospital. Personally reconciled medication. Patient hospitalized overnight for complications of stent placement that is somewhat obscure in regards to actual reasoning. Regardless, she seems to be doing well., Is now forced to be on DAPT therapy. Will continue to follow closely given her ongoing Xarelto therapy as well * Procedure Codes: 9 9496 TRANS CARE MGMT 7 DAY DISCH, Modifiers: 25 , 1170F FUNCTIONAL STATUS ASSESSMENT * Follow Up: p rn * * Sign off status: Completed true * Provider: Cait Queen MD Date: 0 09/27/2024 Generated for Marine collins/Kasandra/Sarah on: 0 11/18/2024 08:55 PM EDT History and Physical Notes * HPI (History of Present Illness) Category Sub-Category Detail Notes Category Not es [place]trim History Transition of care visit from hospital Date of admission to hospital:: 2024 Patient notices no difference in functional status, shortness of air or chest pains after stents were placed. Reviewed catheterization notes. Date of receipt of hospital admission re port:: 09/22/2024 Date of discharge from hospital:: 2024 Date of receipt of hospital discharge felix mmary:: 09/23/2024 Discharge medications review ed and reconciled from hospital:: Medications left unchanged gen Peggy Mcbride is a 84 yo F here for follow up since hospital discharge for heart cath w/ stent placement in RCA. She was observed overnight for mild dissection. She feels well overall. She is concerned of bruising from cath size in groin but assured her it was in healing stages. She asks about the schedule of her medications and we went over. Examination Category Sub-Category Detail Notes Category Not es General Examination Heart: Regular Rate and Rhythm, no murmur, rubs or gallops Lungs: LCTAB, No wheezes, c rackles or rhonchi, Good air movement, Skin: bruising in groin ar ea due to heart cath, healing General Pleasant and Coopera tive, NAD on RA,
--- OUTSIDE RECORDS SUMMARY | 2024-10-19 05:15 | XMS_ITS ---
Author Organization [facility] Address [address] [place] [address] Care Team Providers Care Belt Conveyor Drier Name Role Phone Thomas Queen Primary Care Provider Thomas Queen Unavailable Unavailable REASON FOR VISIT bp ck Encounters Encounter Location Date Provider Diagnosis [address] [address] 10/19/2024 Thomas Queen Plan Of Treatment No Information Progress Notes * Dahlia AMADOhDOB: 3 (84 yo F)Acc No.[id number]:10/19/2024 Progress Notes Patient: Peggy CURIEL Provider: Cait Queen MD :1940 A ge:84 Y S ex:Female Date:10/19/2024 Address:[address], [place], [id number] Subjective: * Chief Complaints: * 1 . Bp ck. * Medical History: Objective: * Vitals: Assessment: Plan: * Treatment: * * Electronic signature of Sidney Queen MD FAAP on 11/18/2024 at 08:55 PM EDT Sign off status: Pending * Provider: Cait Queen MD Date: 0 10/19/2024 Generated for Printi ng/Faxing/eTransmitting on: 0 11/18/2024 08:55 PM EDT
[2024-11-18 20:45] VITALS: BP 208/99; PULSE 77; RESP 12; TEMP 37; O2SAT 99; BMI 20.1
--- NOTE | 2024-11-18 20:45 | CT_ITS ---
PROCEDURE INFORMATION: Exam: CTA Chest With Contrast Exam date and time: 11/18/2024 9:36 PM Age: 84 years old Clinical indication: Pain; On breathing; Additional info: Chest pain, stopped her ac TECHNIQUE: Imaging protocol: Computed tomographic angiography of the chest with contrast. Exam focused on the arteries. 3D rendering (Not supervised by radiologist): MIP and/or 3D reconstructed images were created by the technologist. Radiation optimization: All CT scans at this facility use at least one of these dose optimization techniques: automated exposure control; mA and/or kV adjustment per patient size (includes targeted exams where dose is matched to clinical indication); or iterative reconstruction. Contrast material: ISOVUE; Contrast volume: 80 ml; Contrast route: INTRAVENOUS (IV); COMPARISON: CT ANGIO CHEST PE PROTOCOL 08/20/2021 11:47 AM FINDINGS: Pulmonary arteries: No central or segmental pulmonary arterial intraluminal filling defects identified. Aorta: Unremarkable. No aortic aneurysm. No aortic dissection. Lungs: Incidental right lower lobar calcified nodule. Minimal bibasilar subsegmental atelectasis. Pleural spaces: Unremarkable. No pneumothorax. No pleural effusion. Heart: Unremarkable. No cardiomegaly. No pericardial effusion. Lymph nodes: Unremarkable. No enlarged lymph nodes. Bones/joints: Unremarkable. No acute fracture. Soft tissues: Unremarkable. IMPRESSION: No acute findings identified.
--- NOTE | 2024-11-18 20:45 | XR_ITS ---
PROCEDURE INFORMATION: Exam: XR Chest Exam date and time: 11/18/2024 9:40 PM Age: 84 years old Clinical indication: Pain; Chest pressure; Additional info: Chest pain TECHNIQUE: Imaging protocol: Radiologic exam of the chest. Views: 1 view. COMPARISON: CT ANGIO CHEST PE PROTOCOL 11/18/2024 9:36 PM FINDINGS: Lungs: Unremarkable. No consolidation. Pleural spaces: Unremarkable. No pleural effusion. No pneumothorax. Heart/Mediastinum: Unremarkable. No cardiomegaly. Bones/joints: Unremarkable. IMPRESSION: No acute findings.
--- NOTE | 2024-11-18 20:54 | CT_ITS ---
PROCEDURE INFORMATION: Exam: CT Abdomen And Pelvis With Contrast Exam date and time: 11/18/2024 9:36 PM Age: 84 years old Clinical indication: Other: Epigastric pain TECHNIQUE: Imaging protocol: Computed tomography of the abdomen and pelvis with contrast. 3D rendering (Not supervised by radiologist): MIP and/or 3D reconstructed images were created by the technologist. Radiation optimization: All CT scans at this facility use at least one of these dose optimization techniques: automated exposure control; mA and/or kV adjustment per patient size (includes targeted exams where dose is matched to clinical indication); or iterative reconstruction. Contrast material: ISOVUE; Contrast volume: 80 ml; Contrast route: IV; COMPARISON: CT ABDOMEN PELVIS W CON 04/24/2022 4:07 AM FINDINGS: Liver: Unremarkable. No mass. Gallbladder and biliary ducts: Unremarkable. No calcified stones. No ductal dilation. Pancreas: Unremarkable. No ductal dilation. Spleen: Unremarkable. No splenomegaly. Adrenal glands: Unremarkable. No mass. Kidneys and ureters: No nephroureterolithiasis or hydroureter. Stomach and bowel: Scattered sigmoid colonic diverticula without peridiverticular fat stranding. Nonobstructive pattern. Moderately large to large colonic stool burden. Decompressed stomach with mild perigastric fat stranding especially surrounding fundus and body. Appendix: No evidence of appendicitis. Intraperitoneal space: Unremarkable. No free air. No significant fluid collection. Vasculature: Right lower lobar calcified nodule. Atherosclerotic calcification of aorta iliac arteries without aneurysm. Lymph nodes: Unremarkable. No enlarged lymph nodes. Urinary bladder: Unremarkable as visualized. Reproductive: Unremarkable as visualized. Bones/joints: Unremarkable. No acute fracture. Soft tissues: Unremarkable. IMPRESSION: 1. Mild perigastric fat stranding. Correlate for low-grade gastritis symptoms. 2. Moderately large to large nonobstructive colonic stool burden. 3. Scattered sigmoid colonic diverticulosis.
--- OUTSIDE RECORDS SUMMARY | 2024-11-18 20:55 | XMS_ITS | Referral Summary ---
Author Organization [employer] ([place], [place], [place], [place]) Address [address] [place] [address] Care Team Providers Care Drafter Landscape Name Role Phone Unavailable Primary Care Provider Unavailabl e Social History Tobacco Use Types Packs/Day Years Used Date Smoking Tobacco: Never Assessed Comments Unknown Sex and Gender Information Value Date Recorded Sex Assigned at Not on file Legal Sex Female 6:05 PM CDT Gender Identity Not on file Sexual Orientation Not on file Plan of Treatment Not on file Insurance [facility] MEDICARE ADVANTAGE
--- OUTSIDE RECORDS SUMMARY | 2024-11-18 20:55 | XMS_ITS | Clinical Summary ---
Author Organization [employer] ([place], [place], [place], [place]) Address [address] [place] [address] Care Team Providers Care Street Light Inspector Name Role Phone Unavailable Primary Care Provider Unavailabl e Social History Tobacco Use Types Packs/Day Years Used Date Smoking Tobacco: Never Assessed Comments Unknown Sex and Gender Information Value Date Recorded Sex Assigned at Not on file Legal Sex Female 6:05 PM CDT Gender Identity Not on file Sexual Orientation Not on file Plan of Treatment Not on file Insurance [facility] MEDICARE ADVANTAGE
--- OUTSIDE RECORDS SUMMARY | 2024-11-18 20:56 | XMS_ITS | Patient Health Record ---
Author Organization [facility] Address [address] [place] [address] Care Team Providers Care Epic Director Name Role Phone Thomas Queen Primary Care Provider [phone] Thomas Queen Unavailable Unavailable Fay Carballo Unavailable [phone] Ursula Arroyo Unavailable [phone] Fay Thomas Unavailable [phone] Migration, Provider Unavailable Unavailable Allergies Allergen (clinical drug ingredient) Drug/Non Drug Allergy documented on EMR Reaction Allergy Type Onset Date Status ciprofloxacin Cipro Unknown Drug Allergy Act aj Results Component Value Reference Range Notes THYROID PANEL WITH TSH (2044 ) Reviewed date:12/29/2023 07:58:19 AM Interpretation: Performing Lab:[facility] [employer] Fzft1544 jobs-dial LLCtel Worksteady.io, XpresoFcleLS[address] Toni Rosen Notes/Report: NON-FASTING; NON-FASTING T3 UPTAKE 33 22-35 % T4 (THYROXINE), TOTAL 7.2 5.1-11.9 mcg/dL FREE T4 INDEX (T7) 2.4 1.4-3.8 TSH 3.50 0.40-4.50 mIU/L LIPID PANEL, STANDARD (7600) Reviewed date:06/26/2024 12:55:44 PM Interpretation: Performing Lab:[facility] Equiom Qidz8111 Mittel BlCosential, XpresoNpzhLK[address] Toni Rosen Notes/Report: NON-FASTING; NON-FASTING; NON-FASTING; NON-FASTING FASTING:YES FASTING: YES CHOLESTEROL, TOTAL 205 <200 mg/dL HDL CHOLESTEROL 75 > OR = 50 mg/dL TRIGLYCERIDES 84 <150 mg/dL LDL-CHOLESTEROL 112 Reference range: <100 Desirable range <100 mg/dL for primary prevention; <70 mg/dL for patients with CHD or diabetic patients with > or = 2 CHD risk factors. LDL-C is now calculated using the Bong calculation, which is a validated novel method providing better accuracy than the Friedewald equation in the estimation of LDL-C. Davis SS et al. ALONDRA. 2013;310(19): 5305-6089 (http://Actacell.CrowdClock/faq/XGG921) CHOL/HDLC RATIO 2.7 <5.0 (calc) NON HDL CHOLESTEROL 130 <130 mg/dL (calc) For patients with diabetes plus 1 major ASCVD risk factor, treating to a non-HDL-C goal of <100 mg/dL (LDL-C of <70 mg/dL) is considered a therapeutic option. COMPREHENSIVE METABOLIC MARISOL Chu (35373) Reviewed date:06/26/2024 12:55:44 PM Interpretation: Performing Lab:CB, Electric Imp-Spring Qiln67[address], [facility] CenterIgotVW[address] Toni Rosen Notes/Report: NON-FASTING; NON-FASTING; NON-FASTING; NON-FASTING [...] 26 10-35 U/L ALT 17 6-29 U/L BASIC METABOLIC PANEL (47550 ) Reviewed date:12/29/2023 07:58:19 AM Interpretation: Performing Lab:[facility] [employer]Spring Hvds3166 jobs-dial LLCteSaint Barnabas Medical Center, [facility] HospitalNmhfLM[address] Toni Rosen Notes/Report: NON-FASTING; NON-FASTING GLUCOSE 111 [...] 31 20-32 mmol/L CALCIUM 10.2 8.6-10.4 mg/dL CBC (INCLUDES DIFF/PLT) (639 9) Reviewed date:06/26/2024 12:55:44 PM Interpretation: Performing Lab:[facility] [employer] Xpkt0255 PediusWoodwinds Health CampusGywdVK[address] Toni Rosen Notes/Report: NON-FASTING; NON-FASTING; NON-FASTING; NON-FASTING [...] MPV 10.8 7.5-12.5 fL ABSOLUTE NEUTROPHILS 4158 9788-3757 cells/uL ABSOLUTE LYMPHOCYTES 640 734-5878 cells/uL ABSOLUTE MONOCYTES 448 200-950 cells/uL ABSOLUTE EOSINOPHILS 49 15-500 cells/uL ABSOLUTE BASOPHILS 49 0-200 cells/uL NEUTROPHILS 77 LYMPHOCYTES 12.9 MONOCYTES 8.3 EOSINOPHILS 0.9 BASOPHILS 0.9 TSH W/REFLEX TO FT4 (87396) Reviewed date:06/26/2024 12:55:44 PM Interpretation: Performing Lab:[facility]IL[facility], Electric Imp-Reality Sports Onlinee1355 jobs-dial LLCteBuck Mason, CasetextKhuhSP[address] Toni Rosen Notes/Report: NON-FASTING; NON-FASTING; NON-FASTING; NON-FASTING FASTING:YES FASTING: YES TSH W/REFLEX TO FT4 4.50 0.40-4.50 mIU/L HELICOBACTER PYLORI AG, EIA, STOOL (59535) Reviewed date:07/27/2024 12:33:32 PM Interpretation: Performing Lab:[facility] [employer] Imp-Re[employer] Sports Onlinee1355 jobs-dial LLCtel Worksteady.io, XpresoTtldIP[address] Toni Rosen Notes/Report: NON-FASTING HELICOBACTER PYLORI AG, EIA, STOOL SEE NOTE HELICOBACTER PYLORI [employer], EIA, STOOL Micro Number: [id number] Test Status: Final Specimen Source: Stool Specimen Quality: Adequate H.pylori Ag: Not Detected Antimicrobials, proton pump inhibitors, and bismuth preparations inhibit H. pylori and ingestion up to two weeks prior to testing may cause false negative results. If clinically indicated the test should be repeated on a new specimen obtained two weeks after discontinuing treatment. Reference Range: Not Detected CTA : Coronary Reviewed date:09/19/2024 10:16:47 AM Interpretation: Performing Lab: Notes/Report: Reason For Referral Reason Dr. Wiley Diagnosis 1 Epigastric pain (R10 .13) Referral Organization [facility] Referring Provider First Name Ursula Referring Provider Last Name Cruz Referring Provider Speciality Family [facility] ctice Referred Organization [facility] Referred Address [address] [facility] [address] [place], [place],[address],[place] Referred Provider Specialty Gastroentero logy General Notes Nayely Manley 2024 12:04:31 PM >, Nayely Manley 06/23/2024 12:07:04 PM >sent to Dr. Wiley Referral Priority Routine Reason Dr. John Alanis at for egd... has seen before Diagnosis 1 Gastroesophageal ref lux disease with esophagitis without hemorrhage (K21.00) Referral Organization [facility] Referring Provider First Name Thomas Referring Provider Last Name Bret Referring Provider Speciality Internal M edicine Referred Organization [facility] Referrals Referred Address [address] [facility] [place],[address], Referred Provider Specialty Gastroentero logy General Notes Nayely Manley 2024 12:04:12 PM >sent to , Nayely Manley 08/08/2024 09:22:29 AM >sent again Referral Priority Urgent Reason Dr. Locke Diagnosis 1 Abnormal stress test (R94.39) Referral Organization [facility] Referring Provider First Name Thomas Referring Provider Last Name Bret Referring Provider Speciality Internal edicine Referred Organization [facility] Referred Address [address] [place], [place],[address], Referred Provider Specialty Cardiovascul ar Disease General Notes Nayely Manley 2024 04:02:10 PM >sent to Dr. Locke at [facility] Referral Priority Routine Reason Please set up CTA of coronary arteries at [facility] if possible-questionably abnormal nuclear stress test Diagnosis 1 Encounter for screen ing for coronary artery disease (Z13.6) Referral Organization [facility] Referring Provider First Name Thomas Referring Provider Last Name Bret Referring Provider Speciality Internal edicine Referred Organization [facility] Referred Address [address],[address], Referred Provider Specialty Diagnostic R adiology General Notes Ilan Vogt 05/2024 02:20:55 PM > faxed to [facility] and they will call pt- [place] does not do them, Nayely Manley 09/11/2024 09:14:11 AM >Scheduled at [facility] 09-12-24 at 10- be there at 9. No caffeine 12 hours prior including chocolate. Nothing to eat or drink 2 hours before, except for water. Can take BP meds in the am if needed., Nayely Manley 09/11/2024 09:16:33 AM >Left a VM with patient Referral Priority Routine Referral Appointment Date 09/12/2024 Medications Medication SIG (Take, Route, Frequency, Duration) Notes Start Date End Date Status Xarelto 10 MG TAKE 1 TABLET DAILY at bedtime; Duration: 90 days Active NexIUM 20 MG 1 capsule 1/2 to 1 hour before morning meal Orally Once a day; Duration: 30 day(s) 08/07/2024 Active Rosuvastatin Calcium 10 MG 1 tablet Orally Once a day Active Clopidogrel Bisulfate 75 MG 1 tablet Orally Once a day Active Aspirin 81 MG 1 tablet Orally Once a day Active Tylenol 325 MG 1 tablet as needed Orally every 6 hrs Active amLODIPine Besylate 2.5 MG 1 tab(s) orally twice a day Active MYLANTA COAT AND COOL 1200 MG-270 MG-80 MG/10 ML 10 ML ORALLY 1-2 times a day Active Synthroid 50 MCG 1 tab(s) orally once a day; Duration: 90 days BRAND NAME ONLY 11/03/2022 Active Immunizations Vaccine Route Administration Date Status [...] W/U Status Risk Notes Problem Sore throat (890468559) Sore throat (J02.9) Active confirmed Problem Essential hypertension (93671803) Essential hypertension (I10) Active confirmed Problem Seasonal allergy (383544261) Seasonal allergies (J30.2) Active confirmed Problem Atherosclerotic heart disease of [place] coronary artery without angina pectoris (413706815389901) Coronary artery disease involving [place] coronary artery of [place] heart without angina pectoris (I25.10) Active confirmed Problem Acquired hypothyroidism (869410044) Acquired hypothyroidism (E03.9) Active confirmed Problem Generalized anxiety disorder (51840092) LEANDRO (generalized anxiety disorder) (F41.1) Active confirmed Problem Tinnitus of left ear (9236055275781) Left-sided tinnitus (H93.12) Active confirmed Problem Single subsegmental pulmonary embolism without acute cor pulmonale (I26.93) Active confirmed Problem Gastroesophageal reflux disease with esophagitis (disorder) (726136189) Gastroesophageal reflux disease with esophagitis without hemorrhage (K21.00) Active confirmed Problem Gastroesophageal reflux disease (622720289) Gastroesophageal reflux disease, unspecified whether esophagitis present (K21.9) Active confirmed Problem Protein S deficiency (4829663) Protein S deficiency (D68.59) Active confirmed Vital Signs Heart Rate 78 /min 09/27/2024 Temperature 97.8 degrees Fahrenheit 09/27/2024 Blood pressure diastolic 64 mm Hg 09/27/2024 Height 5 ft 2 in in 09/27/2024 Blood pressure systolic 136 mm Hg 09/27/2024 Weight 118 lbs 09/27/2024 BMI 21.58 kg/m2 09/27/2024 Encounters Encounter Location Date Provider Diagnosis [facility] [address] [place] [address] 06/10/2024 Provider Migration Gastroesophageal reflux disease with esophagitis without hemorrhage K21.00 [facility] [address] [facility] [address] [place] [address] 12/27/2023 Thomas Besson Essential hypertensi on I10 ; Acquired hypothyroidism E03.9 ; Protein S deficiency D68.59 ; Gastroesophageal reflux disease with esophagitis without hemorrhage K21.00 and Immunization(s) administered Z23 [facility] [address] [place] [address] 05/11/2024 Ursula McNees Essential hypertensi on I10 ; Acquired hypothyroidism E03.9 ; Protein S deficiency D68.59 and Gastroesophageal reflux disease with esophagitis without hemorrhage K21.00 [facility] [address] [address] 06/08/2024 Thomas Besson Essential hypertensi on I10 and Gastroesophageal reflux disease with esophagitis without hemorrhage K21.00 [facility] [address] [facility] [address] [place] [address] 06/22/2024 Ursula McNees Essential hypertensi on I10 ; Encounter for Medicare annual wellness exam Z00.00 ; Acquired hypothyroidism E03.9 ; Protein S deficiency D68.59 ; Gastroesophageal reflux disease with esophagitis without hemorrhage K21.00 ; BMI 20.0-20.9, adult Z68.20 ; Epigastric pain R10.13 and Encounter for immunization Z23 [facility] [address] [place] [address] 07/03/2024 Thomas Queen Infectious diarrhea A09 [facility] [address] [facility] [address] [place] [address] 07/10/2024 Thomas Queen Pain in right leg M79.604 ; Pain in left leg M79.605 and Abdominal pain, generalized R10.84 [facility] [address] [facility] [address] [place] [address] 07/20/2024 Fay Martha Left upper quadrant pain R10.12 and Gastroesophageal reflux disease, unspecified whether esophagitis present K21.9 [facility] [address] [address] 08/03/2024 Thomasteresita Queen Gastroesophageal ref lux disease with esophagitis without hemorrhage K21.00 [facility] [address] [place] [address] 08/07/2024 Thomas Lizason Gastroesophageal ref lux disease with esophagitis without hemorrhage K21.00 and Essential hypertension I10 [facility] [address] [address] 09/07/2024 Thomas Queen Essential hypertensi on I10 ; Gastroesophageal reflux disease with esophagitis without hemorrhage K21.00 and Encounter for screening for coronary artery disease Z13.6 [facility] [address] [facility] [address] [place] [address] 09/27/2024 Thomas Queen Coronary artery dise ase involving [place] coronary artery of [place] heart without angina pectoris I25.10 ; Essential hypertension I10 and Hospital discharge follow-up Z09 [facility] [address] [facility] [address] [place] [address] 11/22/2023 Ursula McNees Knee pain M25.569 [facility] [address] [place] [address] 03/22/2024 Fay Carballo [facility] [place] [address] [place] [address] 05/10/2024 Thomas Besson [facility] [address] [place] [address] 05/11/2024 Ursula Arroyo [facility] [address] [place] [address] 06/30/2024 Thomas Besson [facility] [address] [place] [address] 07/20/2024 Thomas Besson [facility] [address] [place] [address] 08/02/2024 Thomas Besson [facility] [address] [place] [address] 08/23/2024 Thomas Besson [facility] [address] [place] [address] 09/06/2024 Thomas Besson [facility] [address] [place] [address] 09/22/2024 Thomas Besson Assessments Encounter Date Diagnosis (ICD Code) Assessment Notes Treatment Notes Treatment Clinical Notes Section Notes 11/22/2023 Knee pain (ICD-10 - M25.569) 12/27/2023 [...] trial to see if Dr. Alanis at [facility] is available. She would prefer this [...] Pain in left leg (ICD-10 - M79.605) 09/27/2024 Essential hypertension (ICD-10 - I10) - BP well controlled - Continue amlodipine, ok to take 5mg daily 09/27/2024 Coronary artery disease involving [place] coronary artery of [place] heart without angina pectoris (ICD-10 - I25.10) [...] - Continue follow up with cardiology 09/27/2024 Hospital discharge follow-up (ICD-10 - Z09) [...] given her ongoing Xarelto therapy as well 07/10/2024 Abdominal pain, generalized (ICD-10 - R10.84) [...] prescription if she has been purchasing this [id number] 05/11/2024 Gastroesophageal reflux disease with esophagitis without hemorrhage (ICD-10 - K21.00) Continue PPI 06/22/2024 Protein S deficiency (ICD-10 - D68.59) Remains on DOAC. No complications. CBC drawn today 06/22/2024 Gastroesophageal reflux disease with esophagitis without hemorrhage (ICD-10 - K21.00) Change to Voquenza. MOA and SE profile discussed. Refer to GI for EGD consideration 12/27/2023 Immunization(s) administered (ICD-10 - Z23) 06/22/2024 BMI 20.0-20.9, adult (ICD-10 - Z68.20) [...] Physical Therapy Eval and Treat 11/22/19 24 Insurance Providers Payer Name Payer Address Payer Phone Subscriber Number Group Number Insured Name Patient Relationship to Insured Coverage Start Date Coverage End Date [employer] [address] [address] [place] [address] [id number] Peggy Mcbride Self - patient is the insured Medical (General) History Medical History History ICD Code Hypothyroidism PE (05/16/2021) DVT (Right leg 02/2018) GERD Varicose Veins- has had them stipped in 2008 Hiatal Hernia - EGD 08/30 - gastritis - b iopsies negative Shingles 2005 Protein S deficiency Surgical History Surgery Date(Month/Year) Cyst removed from between breasts 05/2021 Hysterectomy 2001 3 Cardiac stents 2024 Hospitalization History Reason Date(Month/Year) 3 Cardiac stents 2024 hysterectomy 2001
--- OUTSIDE RECORDS SUMMARY | 2024-11-18 20:56 | XMS_ITS | Encounter Summary ---
[facility] Address [address] [place] [id number] Care Team Providers Care Storekeeper Engineering Name Role Phone Provider, No Known Primary Care Provider Unavail able Reason for Visit * Reason Onset Date Comments JEFERSON ALANIS-MEDICAL QUESTION 08/23/2024 Encounter Details Date Type Department Care Team (Late st Contact Info) Description 08/23/2024 Telephone [facility] [address] [address] Jeferson Alanis MD [address] [place] [address] JEFERSON ALANIS-MEDICAL QUESTION Social History Tobacco Use Types Packs/Day Years Used Date Smoking Tobacco: Never Smokeless Tobacco: Never Comments:AVoid second hand s moke Alcohol Use Standard Drinks/Week Comments Yes 7 (1 standard drink = 0.6 oz pur e alcohol) Abuse Screen Answer Date Recorded Unsafe at Home or Work/School Not on file Feels Threatened by Someone? Not on file 11/2022 Does Anyone Keep You from Co ntacting Others or Doint Things Outside the Home? Not on file 12/14/2022 Physical Sign of Abuse Present Not on file 1 Housing Stability Answer Date Recorded Current Living Arrangements Not on file 11/2022 Potentially Unsafe Housing Conditions Not on magruerite e 12/14/2022 Family and Community Support Answer Aston e Recorded Help with Day-to-Day Activities Not on file 12/14/2022 Lonely or Isolated Not on file 12/14/2022 Employment Answer Date Recorded Do you want help finding or keeping work or a yasmani b? Not on file 12/14/2022 Disabilities Answer Date Recorded Concentrating, Remembering, or Making Decisions Difficulty Not on file 12/14/2022 Doing Errands Independently Difficulty Not on fi le 12/14/2022 Education Answer Date Recorded Help with school or training? Not on file Preferred Language Not on file 12/14/2022 Comments No Sex and Gender Information Value Date Recorded Sex Assigned at Not on file Legal Sex Female 11:20 AM EDT Gender Identity Not on file Sexual Orientation Not on file documented as of this encounter Miscellaneous Notes * Telephone Encounter - Sabrina Lopez MA - 08/23/2024 4:25 PM EDT Called patient she isnt having colon. She called and asking question about EGD procedure tomorrow. * Telephone Encounter - Art Joe RegSched Rep - 08/23/2024 4:20 PM EDT Hub staff attempted to follow warm transfer process and was unsuccessful Caller: Peggy Mcbride Relationship to patient: Self Best call back number: [phone] Patient is needing: PATIENT CALLED IN AND HAS QUESTIONS IN REGARD TO PREP HER UPCOMING PROCEDURE. PLEASE CALL BACK ANYTIME, OKAY TO LEAVE VM. documented in this encounter Plan of Treatment Not on file documented as of this encounter Visit Diagnoses Not on filedocumented in this encounter Care Teams Storekeeper Engineering Relationship Specialty Start Date End Date Provider, [place] [address] PCP - General 09/27/16 documented as of this encounter
--- OUTSIDE RECORDS SUMMARY | 2024-11-18 20:56 | XMS_ITS | Clinical Summary ---
Author Organization [facility] Address [address] [place] [address] Care Team Providers Care Strategic Account Executive Name Role Phone Provider, No Known Primary Care Provider Unavail able Allergies No known active allergies Medications levothyroxine (SYNTHROID, LEVOTHROID) 50 MCG tablet Take 50 mcg by mouth Daily. Active diphenhydrAMINE (BENADRYL) 2 % creamIndication s:Wasp sting, accidental or unintentional, initial encounter Apply topically 3 (Three) Times a Day As Needed for Itching. 15 g 7 Active Encounters Date Type Department Care Team Description 08/28/2024 Results Follow-Up [facility] [address] [place] [address] John Alanis MD 08/24/2024 10:30 AM EDT Outside Facility Service [facility] [address] [address] John Alanis MD 08/23/2024 Telephone [facility] [address] [address] John Alanis MD WARREN FRANK-[facility]ICAL QUESTION from Last 3 Months Family History Medical History Relation Name Comments Cancer Brother 1 prostate No Known Problems Brother 2 No Known Problems Daughter Lung disease Father Heart disease Mother No Known Problems Son 1 No Known Problems Son 2 Relation Name Status Comments Brother 1 Alive Brother 2 Alive Daughter Alive Father Mother Son 1 Alive Son 2 Alive Social History Tobacco Use Types Packs/Day Years Used Date Smoking Tobacco: Never Smokeless Tobacco: Never Tobacco Cessation:Counseling Given: Yes Comments:AVoid second hand smoke Alcohol Use Standard Drinks/Week Comments Yes 7 [...] 11/2022 Potentially Unsafe Housing Conditions Not on marguerite e 12/14/2022 Family and Community Support Answer [...] on file Sexual Orientation Not on file Last Filed Vital Signs Vital Sign Reading Time Taken Comments Blood Pressure 150/80 09/27/2016 12:26 PM EDT Pulse 67 09/27/2016 12:26 PM EDT Temperature 36.7 C (98.1 F) 09/27/2016 12:26 PM EDT Respiratory Rate 20 09/27/2016 12:26 PM EDT Oxygen Saturation - - Inhaled Oxygen Concentration - - Weight 56.4 kg (124 lb 6.4 oz) 09/27/2016 12:26 PM EDT Height 158.8 cm (5' 2.5 ) 09/27/2016 12:26 PM ED T Body Mass Index 22.39 09/27/2016 12:26 PM EDT Plan of Treatment Health Maintenance Due Date Last Done Comments DXA SCAN 1942 COLOGUARD 09/22/1987 COLON CANCER SCREENING 5 YEA R SIGMOIDOSCOPY 09/22/1987 COLONOSCOPY 09/22/1987 COLORECTAL CANCER SCREENING 09/22/1987 CT COLONOGRAPHY 09/22/1987 FECAL OCCULT BLOOD TEST 09/22/1987 FIT Testing (1 year) 09/22/1987 ANNUAL WELLNESS VISIT 09/27/2016 RSV Vaccine - Adults (1 - 1- dose 75+ series) 2017 ZOSTER VACCINE (2 of 2) 08/17/2024 06/22/2024 COVID-19 Vaccine (7 - 2023-2 5 season) 2024 01/13/2024, 11/30/2022, 12/23/2021, Additional history exists INFLUENZA VACCINE 12/06/2024 12/27/2023, , 12/31/2021, Additional history exists TDAP/TD VACCINES (2 - Td or Tdap) 01/21/2033 023 Pneumococcal Vaccine 50+ Completed 07/31/2021, 08/2015 Procedures Procedure Name Priority Date/Time Associated Diagnosis Comments TISSUE PATHOLOGY EXAM Routine 08/24/2024 10:55 AM EDT Gastro-esophageal reflux disease with esophagitis, without bleeding ENDOSCOPY, INT 08/24/2024 from Last 3 Months Results * Tissue Pathology Exam (08/24/2024 10:55 AM EDT) Case Report Surgical Pathology Report Case: [id number] Authorizing Provider: John Alanis MD Collected: 08/24/2024 10:55 AM Ordering Location: [facility] Received: 08/25/2024 07:20 AM LABORATORY Pathologist: Roman Souza MD Specimen: Gastric 08/28/2024 11:03 AM EDT [facility] Clinical Information Gastro-esophageal reflux disease with esophagitis, without bleeding 08/28/2024 11:03 AM EDT [facility] Final Diagnosis STOMACH, BIOPSY: Gastric mucosa with reactive changes. No Helicobacter pylori-like organisms seen. Negative for dysplasia or malignancy. GJK 08/28/2024 11:03 AM EDT [facility] at 1103 EDT Gross Description 1. Gastric. Received in formalin labeled gastric BX is a 0.5 x 0.2 x 0.1 cm aggregate of multiple callaway tissue fragments, submitted entirely in a single cassette. LDP 08/28/2024 11:03 AM EDT [facility] Microscopic Description The slides are reviewed and demonstrate histopathologic features supporting the above rendered diagnosis. 08/28/2024 11:03 AM EDT [facility] Tissue Stomach structure / Unknown 08/24/2024 10:55 AM EDT 08/25/2024 7:20 AM EDT John Alanis MD PATHOLOGY/CYTOLOGY ORDERABLES Final Result [facility]
[address] [place] [address], * Endoscopy, Int (08/24/2024) us John Alanis MD INTERFACE NEEDS Final Result from Last 3 Months Insurance Care Teams Strategic Account Executive Relationship Specialty Start Date End Date Provider, [place] [address] PCP - General 09/27/16
[2024-11-18 21:00] VITALS: BP 189/93; PULSE 65; RESP 12; O2SAT 100
[2024-11-18 21:08] LABS: Hematocrit 41.7 % (37.0-47.0); Hemoglobin 14.0 g/dL (12.2-16.2); Immature Granulocytes % 0.2 %; Mean Corpuscular HGB Conc 33.6 g/dL (31.8-35.4); Mean Corpuscular Hemoglobin 30.8 pg (27.0-31.2); Mean Corpuscular Volume 91.9 fl (81-99); Nucleated Red Blood Cells % 0 %; Platelet Count 284 K/mm3 (142-424); Red Blood Count 4.54 M/mm3 (4.20-5.40); Red Cell Distribution Width-SD 44.6 fL; White Blood Count 5.1 K/mm3 (4.8-10.8)
[2024-11-18 21:11] VITALS: BP 189/93; PULSE 67; RESP 15; O2SAT 100
[2024-11-18 21:12] LABS: Albumin Level 4.9 g/dl (3.5-5.0); Chloride 99 mmol/L (98-107); Sodium 138 mmol/L (136-145)
[2024-11-18 21:13] LABS: Potassium 3.9 mmoL/L (3.5-5.1)
--- NOTE | 2024-11-18 21:14 | ECG_ITS ---
APPROVED REPORT Exam: Resting ECG HR:67 bpm ECG Measurements Heart Rate 67 AXES LA 153 P 85 QRSd 98 QRS 110 QT 397 T 58 QTc 412 Conclusion SINUS RHYTHM POSSIBLE RIGHT VENTRICULAR HYPERTROPHY [SOME/ALL OF: PROMINENT R IN V1, LATE TRANSITION, RAD, ANGELA, SSS] MINIMAL ST DEPRESSION [0.025+ mV ST DEPRESSION] No STEMI Electronically signed by : ZHAO MCINTYRE, 11/19/2024 00:55:51
[2024-11-18 21:15] LABS: Alanine Aminotransferase 20 U/L (12-78); Anion Gap 14.9 mEq/L (5-15); Aspartate Amino Transferase 47 U/L (14-36); Blood Urea Nitrogen 13 mg/dl (7-17); Carbon Dioxide 28 mmol/L (22.0-30.0); Creatinine Clearance Estimated 34 mL/min (50-200); Creatinine,Serum 0.80 mg/dl (0.52-1.04); Estimated Glomerular Filt Rate 69 ml/min (>60); GFR (African American) 83 ML/MIN (>60)
[2024-11-18 21:16] LABS: Albumin/Globulin Ratio 1.5 (1.1-1.8); Alkaline Phosphatase 80 U/L (38-126); Bilirubin,Total 0.6 mg/dl (0.2-1.3); Calcium 9.8 mg/dl (8.4-10.2); Globulin 3.2 g/dL (1.3-3.2); Glucose 114 mg/dl (74-100); Lipase 239 U/L (23-300); Total Protein,Serum 8.1 g/dl (6.3-8.2)
[2024-11-18 21:28] LABS: Troponin I < 0.01 ng/ml (0.00-0.034)
--- NOTE | 2024-11-18 21:28 | PC.NURSE ---
PT transported to radiology by stretcher by radiology staff.
[2024-11-18] MEDS: 0.9 % SODIUM CHLORIDE 50 ML VIAL IV (21:35)
[2024-11-18] MEDS: SODIUM CHLORIDE 0.9% 10ML SYR (RAD ONLY) 10 ML IV (21:35)
[2024-11-18] MEDS: IOPAMIDOL-370 (76%);100ML BOTTLE 80 ML IV (21:35)
[2024-11-18 22:37] LABS: Hepatitis C Ab Qual. W/ RFX NEGATIVE (Negative)
[2024-11-18] MEDS: ACETAMINOPHEN 500MG TAB 1000 MG PO (22:49)
[2024-11-18 23:01] VITALS: BP 152/80; PULSE 74; RESP 11; O2SAT 98
--- NOTE | 2024-11-18 23:13 | [facility].EDCP ---
Discharge Plan Disposition Patient Disposition: Home, Self-Care Condition: Good Prescriptions Prescriptions: No Action levothyroxine [Synthroid] 50 mcg tablet 50 mcg PO DAILY rosuvastatin [Crestor] 10 mg tablet 10 mg PO DAILY Qty: 30 2RF amlodipine 2.5 mg tablet 2.5 mg PO BID Qty: 180 3RF clopidogrel [Plavix] 75 mg tablet 75 mg PO DAILY Qty: 90 3RF Xarelto 10 mg tablet 10 mg PO QPMWITHMEAL Referrals Follow up/Referrals: Thomas Queen MD [Primary Care Provider, Internal Medicine] - See instructions Activity Restrictions/Add. Instructions Additional Instructions/Restrictions: You were evaluated in the ER and are believed to be appropriate for discharge at this time. Continue taking your home medications as prescribed including your Xarelto. Follow-up with cardiology, call their office first thing Wednesday morning and make an appointment for reevaluation. Also make an appointment with your primary care doctor to discuss better gastritis/acid management. Return to the ER with any new, worsening, or otherwise concerning symptoms. Clinical Impressions Clinical Impression: Gastritis, Atypical chest pain Print Language Print Language: Pashto Discharge ED Provider: Cortez Muñoz [facility] <Cortez Muñoz DO - Last Filed: 11/18/24 23:20> General Chief Complaint: Chest Pain Stated Complaint: Chest Pain Time Seen by Provider: 11/18/24 20:45 Mode of Arrival: Ambulatory Source of Information: Patient Description of Symptoms (Recalled from ER Triage Doc. by RN): PT presents to the ED for evaluation of L sided chest pain under my L breast and deep behind it that started at 1800. Denies taking nitro or aspirin upon arrival. PT has a hx of stints placed in September of this year. PT stated she quit taking her blood thinner x2 weeks ago due to taking too many medication, but stated she started to take it again in two days. 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 Patient states chest pain began this evening at around 6 PM. This was after gardening throughout the day. She states that her pain is located in the central portion of her chest and is nonradiating and nonexertional. She is not experiencing any shortness of breath at this time. She does tell me that she has recently quit taking her Xarelto because she is weary of the side effects. She has not had any lower extremity erythema or pitting edema. No hemoptysis. She does not feel palpitations. In addition to her symptoms, she does timing that she is having epigastric abdominal tenderness and this pain was made worse during the car ride on the way to the hospital. She has no associated nausea or vomiting. No diarrhea. Related Data Home Medications ?Medication ?Instructions ?Recorded ?Confirmed levothyroxine 50 mcg tablet 50 mcg PO DAILY 07/02/21 11/18/24 (Synthroid) rivaroxaban 10 mg tablet (Xarelto) 10 mg PO QPMWITHMEAL 04/24/22 11/18/24 Previous Rx's ?Medication ?Instructions ?Recorded rosuvastatin 10 mg tablet (Crestor) 10 mg PO DAILY #30 tabs 09/06/24 amlodipine 2.5 mg tablet 2.5 mg PO BID #180 tabs 10/04/24 clopidogrel 75 mg tablet (Plavix) 75 mg PO DAILY #90 tabs 10/04/24 Allergies Allergy/AdvReac Type Severity Reaction Status Date / Time ciprofloxacin (From Cipro) Allergy Severe Other Verified 10/02/24 10:36 [facility] <Cortez Muñoz DO - Last Filed: 11/18/24 23:20> [facility] Disclaimer: The information contained in this section may have been updated after the patient was seen, as this information can be updated by other users. Medical History (Updated 11/19/24 @ 00:08 by Denisa Arias MD) Abnormal cardiovascular stress test Angina pectoris Other chest pain Hiatal hernia GERD (gastroesophageal reflux disease) HLD (hyperlipidemia) History of pulmonary embolus (PE) Personal history of DVT (deep vein thrombosis) HTN (hypertension) Encounter for pre-operative cardiovascular clearance Abnormal electrocardiogram [ECG] [EKG] SNHL (sensorineural hearing loss) Dysfunction of eustachian tube Tinnitus Surgical History (Updated 10/02/24 @ 10:35 by Yuki Bacon) History of cardiac cath Social History Smoking Status: Never smoker alcohol intake: never substance use type: denies use current occupational status: retired Travel in the last 8 weeks?: None household members: spouse housing: house Have you lived/traveled outside [place] in past 30 days?: No Contact w/someone who lives/traveled outside US past 30 days?: No Exposure to someone with infectious disease in past 14 days?: No Do you have a fever (greater than 100.4 F or 38 C)?: No Have you tested positive for COVID-19?: No Exposed to someone with COVID-19 in past 14 days?: No Do you have a sore throat?: No Do you have a cough?: No Do you have any weakness?: No Do you have any diarrhea?: No Are you experiencing any unusual bleeding?: No Do you have any muscle aches/pain?: No Do you have any abdominal pain?: No Are you experiencing loss of taste or smell?: No Other Medical History Have you received the Flu Vaccine for this season: No Have you received the Pneumonia Vaccine: No <Cortez Muñoz DO - Last Filed: 11/18/24 23:20> ROS Obtained: Yes Systems reviewed as appropriate & no additional complaints except as documented Physical Exam <Cortez Muñoz DO - Last Filed: 11/18/24 23:20> General General appearance: other (See MDM) Respiratory Respiratory exam: Present other (See MDM) Cardiovascular Cardiovascular exam: Present other (See MDM) Neurological Exam Neurological exam: Present other (See MDM) HEART Score <Cortez Muñoz DO - Last Filed: 11/18/24 23:20> HEART Score HEART Score assessment performed?: Yes History (anamnesis): Moderately suspicious ECG: Normal Age: >65 years Risk factors: 3 or more risk factors Troponin: </= normal limit HEART Score: 5 <Denisa Arias MD - Last Filed: 11/19/24 00:12> HEART Score HEART Score: 5 Critical Care <Cortez Muñoz DO - Last Filed: 11/18/24 23:20> Critical Care Time Critical Care Time: No Medical Decision Making <DO Donny Banda Last Filed: 11/18/24 23:20> Medical Records Medical records reviewed: Yes I reviewed the patient's medical records. Anders Inquiry Pt receiving controlled substance: No Anders was queried for this patient: No Vital Signs Vital Signs: 11/18/24 20:45 11/18/24 21:00 11/18/24 21:11 Temperature 98.6 F Temperature Source Oral Pulse Rate 65 67 Pulse Rate [Right] 77 Respiratory Rate 12 12 15 Blood Pressure 189/93 H 189/93 H Blood Pressure [Right Arm] 208/99 H Blood Pressure Mean 118 Blood Pressure Mean [Right Arm] 135 02 Sat by Pulse Oximetry 99 100 100 Oxygen Delivery Method Room Air Room Air 11/18/24 21:11 11/18/24 23:01 11/18/24 23:30 Temperature Temperature Source Pulse Rate 67 74 72 Pulse Rate [Right] Respiratory Rate 11 L 14 Blood Pressure 152/80 H 149/81 H Blood Pressure [Right Arm] Blood Pressure Mean 104 103 Blood Pressure Mean [Right Arm] 02 Sat by Pulse Oximetry 98 97 Oxygen Delivery Method Lab Data Labs: Lab Results 11/18/24 20:46: WBC 5.1, RBC 4.54, Hgb 14.0, Hct 41.7, MCV 91.9, MCH 30.8, MCHC 33.6, RDW 13.2, Plt Count 284, MPV 10.1, Neut % (Auto) 58.9, Lymph % (Auto) 26.1, Gove % (Auto) 11.1 H, Eos % (Auto) 2.5, Baso % (Auto) 1.2, Neut # (Auto) 3.0, Lymph # (Auto) 1.3, Gove # (Auto) 0.6, Eos # (Auto) 0.1, Baso # (Auto) 0.1, Sodium 138, Potassium 3.9, Chloride 99, Carbon Dioxide 28, Anion Gap 14.9, BUN 13, Creatinine 0.80, Estimated Creat Clear 34, Estimated GFR 69, Est GFR ( Amer) 83, Glucose 114 H, Calcium 9.8, Total Bilirubin 0.6, AST 47 H, ALT 20, Alkaline Phosphatase 80, Troponin I < 0.01, Total Protein 8.1, Albumin 4.9, Globulin 3.2, Albumin/Globulin Ratio 1.5, Lipase 239, HCV Ab URIAH w/Rflx PCR Qn Negative, HIV Ag/Ab Combo Qual Negative 11/18/24 23:26: Troponin I < 0.01 11/18/24 20:46 11/18/24 20:46 Response Orders (Tests/Meds): ED MEDICATIONS Discontinued Medications Generic Name Dose Route Start Last Admin Trade Name Courtney PRN Reason Stop Dose Admin Acetaminophen 1,000 mg 11/18/24 22:45 11/18/24 22:49 Acetaminophen 500mg Tab PO 11/18/24 22:46 500 mg ONCE ONE Administration Aspirin 325 mg 11/18/24 22:24 11/18/24 22:40 Aspirin 325mg Tablet PO 11/18/24 22:25 Not Given ONCE ONE Iopamidol 80 ml 11/18/24 21:34 11/18/24 21:35 Iopamidol-370 (76%);100ml Bottle IV 11/18/24 21:35 80 ml ONCE ONE Administration Morphine Sulfate 2 mg 11/18/24 22:24 11/18/24 22:40 Morphine 2mg/Ml Syringe IV 11/18/24 22:25 Not Given ONCE ONE Ondansetron HCl 4 mg 11/18/24 22:24 11/18/24 22:40 Ondansetron 4mg/2ml Vial IV 11/18/24 22:25 Not Given ONCE ONE Sodium Chloride 50 ml 11/18/24 21:34 11/18/24 21:35 0.9 % Sodium Chloride 50 Ml Vial IV 11/18/24 21:35 50 ml ONCE ONE Administration Sodium Chloride 10 ml 11/18/24 21:34 11/18/24 21:35 Sodium Chloride 0.9% 10ml Syr (Rad Only) IV 11/18/24 21:35 10 ml ONCE ONE Administration ORDERS Category Date Time Status CT abdomen pelvis w con Stat Cat Scan 11/18/24 20:[address] angio chest PE protocol Stat Cat Scan 11/18/24 20:45 Completed CXR --portable [XR chest portable] Stat Exams 11/18/24 20:45 Completed CBC w/Auto Diff [Complete Blood Count Auto Diff] Stat Lab 11/18/24 20:46 Completed CMP [Comprehensive Metabolic Panel] Stat Lab 11/18/24 20:46 Completed HIV Combo Stat Lab 11/18/24 20:46 Completed Hepatitis C Ab Qual. W/ RFX Stat Lab 11/18/24 20:46 Completed Lipase Stat Lab 11/18/24 20:46 Completed Troponin I Q3H Lab 11/18/24 23:26 Completed Troponin I Q3H Lab 11/19/24 02:46 Ordered Troponin I Stat Lab 11/18/24 20:46 Completed ECG Data Tracing #1: Attestation: I reviewed this ECG and interpreted as documented below: ECG Narrative: EKG personally interpreted by me demonstrates normal sinus rhythm with a rate of 67 bpm, right axis, no IA prolongation, narrow QRS, no QTc prolongation. No ST elevation or depression. No overt signs of ischemia or arrhythmia. MDM Narrative Medical Decision Narrative: In summary, this is an 84-year-old female patient who is presenting to the emergency department today for evaluation of chest pain onset this evening around 6 PM. Pain is nonradiating and nonexertional in nature. Comorbidities include a past medical history of hypertension, hyperlipidemia, bilateral DVTs as well as a pulmonary embolus for which she is supposed to be taking Xarelto, as well as coronary artery disease status post stenting. This patient's presentation is complicated by the fact that she tells me that she has stopped taking her Xarelto over the last 2 weeks because she is weary of the side effects. She is also complaining of abdominal pain without any associated gastrointestinal symptoms and she states that his abdominal pain was made worse by the bumps in the road on the car ride here On initial evaluation of the patient they were resting comfortably in no acute distress and nontoxic in appearance. They are hemodynamically stable, saturating well room air, and are neurologically intact. On physical examination she is appropriately alert and interactive with a GCS of 15. Heart and lungs are clear to auscultation bilaterally. She does have epigastric abdominal tenderness to palpation. She has no rebound or guarding. No lower extremity erythema or edema. Differential diagnosis includes ACS/IL, pancreatitis, pulmonary embolism, pneumonia, pneumothorax, pleural effusion, intra-abdominal abscess, gastritis, cholecystitis, choledocholithiasis, among others Workup is initiated with hematologic labs as well as a CTA of the chest and a CT scan with IV contrast of the abdomen and pelvis. Initial interventions included 2 mg of morphine, 4 mg of Zofran, and 325 mg of aspirin. EKG was interpreted as above and is nonischemic. Labs were personally interpreted by me and demonstrate no leukocytosis or actionable anemia. She has no significant electrolyte derangement or acute kidney injury. Troponin is less than 0.01. Lipase is normal. At the time of shift change this patient's CT scans were pending as well as her second troponin. Her heart score is moderate risk at 5 so if she does have persistent chest pain she will necessitate a cardiology consultation. This patient was handed off to the oncoming physician, Dr. Arias, who will follow-up on these results and disposition the patient appropriately. <Denisa Arias MD - Last Filed: 11/19/24 00:12> Vital Signs Vital Signs: 11/18/24 20:45 11/18/24 21:00 11/18/24 21:11 Temperature 98.6 F Temperature Source Oral Pulse Rate 65 67 Pulse Rate [Right] 77 Respiratory Rate 12 12 15 Blood Pressure 189/93 H 189/93 H Blood Pressure [Right Arm] 208/99 H Blood Pressure Mean 118 Blood Pressure Mean [Right Arm] 135 02 Sat by Pulse Oximetry 99 100 100 Oxygen Delivery Method Room Air Room Air 11/18/24 21:11 11/18/24 23:01 11/18/24 23:30 Temperature Temperature Source Pulse Rate 67 74 72 Pulse Rate [Right] Respiratory Rate 11 L 14 Blood Pressure 152/80 H 149/81 H Blood Pressure [Right Arm] Blood Pressure Mean 104 103 Blood Pressure Mean [Right Arm] 02 Sat by Pulse Oximetry 98 97 Oxygen Delivery Method Lab Data Labs: Lab Results 11/18/24 20:46: WBC 5.1, RBC 4.54, Hgb 14.0, Hct 41.7, MCV 91.9, MCH 30.8, MCHC 33.6, RDW 13.2, Plt Count 284, MPV 10.1, Neut % (Auto) 58.9, Lymph % (Auto) 26.1, Gove % (Auto) 11.1 H, Eos % (Auto) 2.5, Baso % (Auto) 1.2, Neut # (Auto) 3.0, Lymph # (Auto) 1.3, Gove # (Auto) 0.6, Eos # (Auto) 0.1, Baso # (Auto) 0.1, Sodium 138, Potassium 3.9, Chloride 99, Carbon Dioxide 28, Anion Gap 14.9, BUN 13, Creatinine 0.80, Estimated Creat Clear 34, Estimated GFR 69, Est GFR ( Amer) 83, Glucose 114 H, Calcium 9.8, Total Bilirubin 0.6, AST 47 H, ALT 20, Alkaline Phosphatase 80, Troponin I < 0.01, Total Protein 8.1, Albumin 4.9, Globulin 3.2, Albumin/Globulin Ratio 1.5, Lipase 239, HCV Ab URIAH w/Rflx PCR Qn Negative, HIV Ag/Ab Combo Qual Negative 11/18/24 23:26: Troponin I < 0.01 Response Orders (Tests/Meds): ED MEDICATIONS Discontinued Medications Generic Name Dose Route Start Last Admin Trade Name Courtney PRN Reason Stop Dose Admin Acetaminophen 1,000 mg 11/18/24 22:45 11/18/24 22:49 Acetaminophen 500mg Tab PO 11/18/24 22:46 500 mg ONCE ONE Administration Aspirin 325 mg 11/18/24 22:24 11/18/24 22:40 Aspirin 325mg Tablet PO 11/18/24 22:25 Not Given ONCE ONE Iopamidol 80 ml 11/18/24 21:34 11/18/24 21:35 Iopamidol-370 (76%);100ml Bottle IV 11/18/24 21:35 80 ml ONCE ONE Administration Morphine Sulfate 2 mg 11/18/24 22:24 11/18/24 22:40 Morphine 2mg/Ml Syringe IV 11/18/24 22:25 Not Given ONCE ONE Ondansetron HCl 4 mg 11/18/24 22:24 11/18/24 22:40 Ondansetron 4mg/2ml Vial IV 11/18/24 22:25 Not Given ONCE ONE Sodium Chloride 50 ml 11/18/24 21:34 11/18/24 21:35 0.9 % Sodium Chloride 50 Ml Vial IV 11/18/24 21:35 50 ml ONCE ONE Administration Sodium Chloride 10 ml 11/18/24 21:34 11/18/24 21:35 Sodium Chloride 0.9% 10ml Syr (Rad Only) IV 11/18/24 21:35 10 ml ONCE ONE Administration ORDERS Category Date Time Status CT abdomen pelvis w con Stat Cat Scan 11/18/24 20:[address] angio chest PE protocol Stat Cat Scan 11/18/24 20:45 Completed CXR --portable [XR chest portable] Stat Exams 11/18/24 20:45 Completed CBC w/Auto Diff [Complete Blood Count Auto Diff] Stat Lab 11/18/24 20:46 Completed CMP [Comprehensive Metabolic Panel] Stat Lab 11/18/24 20:46 Completed HIV Combo Stat Lab 11/18/24 20:46 Completed Hepatitis C Ab Qual. W/ RFX Stat Lab 11/18/24 20:46 Completed Lipase Stat Lab 11/18/24 20:46 Completed Troponin I Q3H Lab 11/18/24 23:26 Completed Troponin I Q3H Lab 11/19/24 02:46 Ordered Troponin I Stat Lab 11/18/24 20:46 Completed MDM Narrative Medical Decision Narrative: In summary, this is an 84-year-old female patient who is presenting to the emergency department today for evaluation of chest pain onset this evening around 6 PM. Pain is nonradiating and nonexertional in nature. Comorbidities include a past medical history of hypertension, hyperlipidemia, bilateral DVTs as well as a pulmonary embolus for which she is supposed to be taking Xarelto, as well as coronary artery disease status post stenting. This patient's presentation is complicated by the fact that she tells me that she has stopped taking her Xarelto over the last 2 weeks because she is weary of the side effects. She is also complaining of abdominal pain without any associated gastrointestinal symptoms and she states that his abdominal pain was made worse by the bumps in the road on the car ride here On initial evaluation of the patient they were resting comfortably in no acute distress and nontoxic in appearance. They are hemodynamically stable, saturating well room air, and are neurologically intact. On physical examination she is appropriately alert and interactive with a GCS of 15. Heart and lungs are clear to auscultation bilaterally. She does have epigastric abdominal tenderness to palpation. She has no rebound or guarding. No lower extremity erythema or edema. Differential diagnosis includes ACS/IL, pancreatitis, pulmonary embolism, pneumonia, pneumothorax, pleural effusion, intra-abdominal abscess, gastritis, cholecystitis, choledocholithiasis, among others Workup is initiated with hematologic labs as well as a CTA of the chest and a CT scan with IV contrast of the abdomen and pelvis. Initial interventions included 2 mg of morphine, 4 mg of Zofran, and 325 mg of aspirin. EKG was interpreted as above and is nonischemic. Labs were personally interpreted by me and demonstrate no leukocytosis or actionable anemia. She has no significant electrolyte derangement or acute kidney injury. Troponin is less than 0.01. Lipase is normal. At the time of shift change this patient's CT scans were pending as well as her second troponin. Her heart score is moderate risk at 5 so if she does have persistent chest pain she will necessitate a cardiology consultation. This patient was handed off to the oncoming physician, Dr. Arias, who will follow-up on these results and disposition the patient appropriately. Arias: Upon my assumption of care patient is stable and resting comfortably. Symptoms are improved from arrival. She did refuse aspirin, morphine, Zofran but requested Tylenol which was administered. CTs personally interpreted do not demonstrate acute PE, radiology reads, and on evidence of gastritis and diverticulosis which patient was informed of. She states she used to take Nexium but has not been taking it since being on her blood thinners because she was worried about interaction. I discussed other options with her and following up this problem with her primary care doctor. On reassessment patient continues to be pain-free, repeat troponin also undetectably low less than 0.01. Patient is appropriate for discharge at this time and comfortable with this plan. She has previously established care with cardiology and I instructed her to follow-up closely with them as well as her PCP. She was given instructions on continued symptomatic monitoring and management, follow-up, and return precautions for the ER. She indicated understanding and the patient was discharged in stable condition
[2024-11-18 23:30] VITALS: BP 149/81; PULSE 72; RESP 14; O2SAT 97
[2024-11-19 00:03] LABS: Troponin I < 0.01 ng/ml (0.00-0.034)
[2024-11-19 00:17] VITALS: BP 149/80; PULSE 70; RESP 16; TEMP 36.8; O2SAT 96
[2024-11-19 00:19] VITALS: BP 149/80; PULSE 73; RESP 11; TEMP 37; O2SAT 98
== END 2024-11-19 00:20 | disposition home or self-care (01) ==
PROVIDERS: Emergency Provider Student in an Organized Health Care Education/Training Program; PCP Internal Medicine Adolescent Medicine
DX: R07.89 Other chest pain (principal); R10.13 Epigastric pain; K29.70 Gastritis, unspecified, without bleeding; E78.5 Hyperlipidemia, unspecified; I10 Essential (primary) hypertension; I25.10 Atherosclerotic heart disease of native coronary artery without angina pectoris
CPT/HCPCS: 71045; 71275; 74177; 80053; 83690; 84484; 85025; 86803; 87389; 93005; 99285; Q9967

== ENCOUNTER 2024-12-11 10:33 | Outpatient (CLI) | payer MEDICARE, SELFPAY ==
--- OUTSIDE RECORDS SUMMARY | 2024-10-19 05:15 | XMS_ITS ---
Author Organization [facility] Address [address] [place] [address] Care Team Providers Care Crop Quantitative Geneticist Name Role Phone Thomas Queen Primary Care Provider [phone] Thomas Queen Unavailable Unavailable REASON FOR VISIT bp ck Encounters Encounter Location Date Provider Diagnosis [address] [address] 10/19/2024 Thomas Queen Plan Of Treatment Next Appt Details Provider Name:Larissa Alvarado ls, 12/19/2024 02:30:00 PM, [address], [place], [address], Progress Notes * REEDDahliahDOB: 3 (84 yo F)Acc No.[id number]:10/19/2024 Progress Notes Patient: Peggy CURIEL Provider: Cait Queen MD :1940 A ge:84 Y S ex:Female Date:10/19/2024 Address[address] [id number] Subjective: * Chief Complaints: * 1 . Bp ck. * Medical History: Objective: * Vitals: Assessment: Plan: * Treatment: * * Electronic signature of Sidney Queen MD FAAP on 12/11/2024 at 10:36 AM EDT Sign off status: Pending * Provider: Cait Queen MD Date: 0 10/19/2024 Generated for Marine collins/Kasandra/Sarah on: 1 10:36 AM EDT
--- OUTSIDE RECORDS SUMMARY | 2024-12-11 10:36 | XMS_ITS | Clinical Summary ---
[facility] Organization [facility] Address [address] [place] [address] Care Team Providers Care Nuclear Plant Operator Name Role Phone Provider, No Known Primary Care Provider Unavail able Allergies No known active allergies Medications levothyroxine (SYNTHROID, LEVOTHROID) 50 MCG tablet Take 50 mcg by mouth Daily. Active diphenhydrAMINE (BENADRYL) 2 % creamIndication s:Wasp sting, accidental or unintentional, initial encounter Apply topically 3 (Three) Times a Day As Needed for Itching. 15 g 7 Active Family History Medical History Relation Name Comments [...] ZOSTER VACCINE (2 of 2) 08/17/2024 06/22/2024 INFLUENZA VACCINE 10/06/2024 12/27/2023, , 12/31/2021, Additional history exists COVID-19 Vaccine (2023-2 5 season) 2024 01/13/2024, 11/30/2022, 12/23/2021, Additional history exists TDAP/TD VACCINES (2 - Td or Tdap) 01/21/2033 023 Pneumococcal Vaccine 50+ Completed 07/31/2021, 08/2015 Insurance [facility] [employer] PPO Care Teams Nuclear Plant Operator Relationship Specialty Start Date End Date Provider, No Known [facility] [address] PCP - General 09/27/16
--- OUTSIDE RECORDS SUMMARY | 2024-12-11 10:36 | XMS_ITS | Patient Health Record ---
Author Organization [facility] Address [address] [place] [address] Care Team Providers Care Fishing Accessories Maker Name Role Phone Thomas Queen Primary Care Provider Thomas Queen Unavailable Unavailable Fay Carballo Unavailable [phone] Ursula Arroyo Unavailable [phone] Fay Thomas Unavailable [phone] Migration, Provider Unavailable Unavailable Larissa Reynolds Unavailable [phone] Allergies Allergen (clinical drug ingredient) Drug/Non Drug Allergy documented on EMR Reaction Allergy Type Onset Date Status ciprofloxacin Cipro Unknown Drug Allergy Act aj Results Component Value Reference Range Notes CTA : Coronary Reviewed date:09/19/2024 10:16:47 AM Interpretation: Performing Lab: Notes/Report: HELICOBACTER PYLORI AG, EIA, STOOL ([id number]) Reviewed date:07/27/2024 12:33:32 PM Interpretation: Performing Lab:[facility], [facility] [facility] Toni Rosen Notes/Report: NON-FASTING HELICOBACTER PYLORI AG, EIA, STOOL SEE NOTE HELICOBACTER PYLORI AG, EIA, STOOL Micro Number: [id number] Test Status: Final Specimen Source: Stool Specimen Quality: Adequate H.pylori Ag: Not Detected Antimicrobials, proton pump inhibitors, and bismuth preparations inhibit H. pylori and ingestion up to two weeks prior to testing may cause false negative results. If clinically indicated the test should be repeated on a new specimen obtained two weeks after discontinuing treatment. Reference Range: Not Detected TSH W/REFLEX TO FT4 ([id number]) Reviewed date:06/26/2024 12:55:44 PM Interpretation: Performing Lab:NILS, [facility] [address], [place] Toni Rosen Notes/Report: NON-FASTING; NON-FASTING; NON-FASTING; NON-FASTING FASTING:YES FASTING: YES TSH W/REFLEX TO FT4 4.50 0.40-4.50 mIU/L CBC (INCLUDES DIFF/PLT) (639 9) Reviewed date:06/26/2024 12:55:44 PM Interpretation: Performing Lab:[facility], [facility] [address], [place] Toni Rosen Notes/Report: NON-FASTING; NON-FASTING; NON-FASTING; NON-FASTING [...] MPV 10.8 7.5-12.5 fL ABSOLUTE NEUTROPHILS 4158 4408-1087 cells/uL ABSOLUTE LYMPHOCYTES 466 445-0737 cells/uL ABSOLUTE MONOCYTES 448 200-950 cells/uL ABSOLUTE EOSINOPHILS 49 15-500 cells/uL ABSOLUTE BASOPHILS 49 0-200 cells/uL NEUTROPHILS 77 LYMPHOCYTES 12.9 MONOCYTES 8.3 EOSINOPHILS 0.9 BASOPHILS 0.9 COMPREHENSIVE METABOLIC PANE L ([id number]) Reviewed date:06/26/2024 12:55:44 PM Interpretation: Performing Lab:N[facility], [facility] [address], [place] Toni Rosen Notes/Report: NON-FASTING; NON-FASTING; NON-FASTING; NON-FASTING [...] 26 10-35 U/L ALT 17 6-29 U/L LIPID PANEL, STANDARD (7600) Reviewed date:06/26/2024 12:55:44 PM Interpretation: Performing Lab:NIL[facility], [facility] [facility] Toni Rosen Notes/Report: FASTING: YES FASTING:YES NON-FASTING; NON-FASTING; NON-FASTING; NON-FASTING CHOLESTEROL, TOTAL 205 <200 mg/dL HDL CHOLESTEROL [...] equation in the estimation of LDL-C. Davis GONSALVES et al. ALONDRA. 2013;310(19): 0899-7367 (http://JDLab.Canvas Networks/faq/MOK181) CHOL/HDLC RATIO 2.7 <5.0 (calc) NON HDL CHOLESTEROL 130 <130 mg/dL (calc) For patients with diabetes plus 1 major ASCVD risk factor, treating to a non-HDL-C goal of <100 mg/dL (LDL-C of <70 mg/dL) is considered a therapeutic option. BASIC METABOLIC PANEL (56766 ) Reviewed date:12/29/2023 07:58:19 AM Interpretation: Performing Lab:[facility] [address] [employer], [place] HkkmQP[address] Toni Rosen Notes/Report: NON-FASTING; NON-FASTING GLUCOSE 111 [...] Reviewed date:12/29/2023 07:58:19 AM Interpretation: Performing Lab:[facility] [address] [place], [place]xc[place]CX[address] Toni Rosen Notes/Report: NON-FASTING; NON-FASTING T3 UPTAKE 33 22-35 % T4 (THYROXINE), TOTAL 7.2 5.1-11.9 mcg/dL FREE T4 INDEX (T7) 2.4 1.4-3.8 TSH 3.50 0.40-4.50 mIU/L Reason For Referral Reason Dr. Wiley Diagnosis 1 Epigastric pain (R10 .13) Referral Organization [facility] Referring Provider First Name Ursula Referring Provider Last Name Cruz Referring Provider Speciality Family Pra ctice Referred Organization [facility] Referred Address [address] [facility] [address] [place], [place],[address], Referred Provider Specialty Gastroentero logy General Notes Nayely Manley 2024 12:04:31 PM >, Nayely Manley 06/23/2024 12:07:04 PM >sent to Dr. Wiley Referral Priority Routine Reason Dr. John Alanis at for egd... has seen before Diagnosis 1 Gastroesophageal ref lux disease with esophagitis without hemorrhage (K21.00) Referral Organization [facility] Referring Provider First Name Thomas Referring Provider Last Name Bret Referring Provider Speciality Internal M edicine Referred Organization [facility] Referrals Referred Address [address] [place], [place],[address], Referred Provider Specialty Gastroentero logy General Notes Nayely Manley 2024 12:04:12 PM >sent to , Nayely Manley 08/08/2024 09:22:29 AM >sent again Referral Priority Urgent Reason Dr. Locke Diagnosis 1 Abnormal stress test (R94.39) Referral Organization [facility]IM[facility] Referring Provider First Name Thomas Referring Provider Last Name Bret Referring Provider Speciality Internal edicine Referred Organization [facility] Referred Address [address] [place], [place],[address], Referred Provider Specialty Cardiovascul ar Disease General Notes Nayely Manley 2024 04:02:10 PM >sent to Dr. Locke at [facility] Referral Priority Routine Reason Please set up CTA of coronary arteries at [facility] if possible-questionably abnormal nuclear stress test Diagnosis 1 Encounter for screen ing for coronary artery disease (Z13.6) Referral Organization [facility] Referring Provider First Name Thomas Referring Provider Last Name Bret Referring Provider Speciality Internal edicine Referred Organization [facility] Referred Address [address],[address], Referred Provider Specialty Diagnostic R adiology General Notes Ilan Vogt 05/2024 02:20:55 PM > faxed to [facility] and they will call pt- [facility] does not do them, Nayely Manley 09/11/2024 09:14:11 AM >Scheduled at [facility] 09-12-24 at 10- be there [...] ML ORALLY 1-2 times a day Active Rosuvastatin Calcium 10 MG 1 tablet Orally Once a day Active NexIUM 20 MG 1 capsule 1/2 to 1 hour before morning meal Orally Once a day; Duration: 30 day(s) 08/07/2024 Active Tylenol 325 MG 1 tablet as needed Orally every 6 hrs Active amLODIPine Besylate 2.5 MG 1 tab(s) orally twice a day Active Clopidogrel Bisulfate 75 MG 1 tablet Orally Once a day Active Immunizations Vaccine Route Administration Date Status Comme nts Arexvy IM Intramuscular 01/21/2023 Administered Boostrix IM Intramuscular 01/21/2023 Administered Fluzone High Dose IM Intramuscular 12/31/2021 Administered Fluzone High Dose IM Intramuscular 12/27/2023 Administered Prevnar PCV-20 (Pneumococcal conjugate 20) IM Intramuscular 07/31/2021 Administered SHINGRIX IM Intramuscular 06/22/2024 Administered Social History Tobacco Use: Social History Observation Description Date Details (start date - stop date) Never Smoker NA - NA Smoking: Question Answer Notes Are you a: nonsmoker Problems Problem Type SNOMED Code ICD Code Onset Dates Problem Status W/U Status Risk Notes Problem Sore throat (762635082) Sore throat (J02.9) Active confirmed Problem Essential hypertension (00393933) Essential hypertension (I10) Active confirmed Problem Seasonal allergy (155394699) Seasonal allergies (J30.2) Active confirmed Problem Atherosclerotic heart disease of [place] coronary artery without angina pectoris (608198531333505) Coronary artery disease involving [place] coronary artery of [place] heart without angina pectoris (I25.10) Active confirmed Problem Acquired hypothyroidism (901991192) Acquired hypothyroidism (E03.9) Active confirmed Problem Generalized anxiety disorder (66628368) LEANDRO (generalized anxiety disorder) (F41.1) Active confirmed Problem Tinnitus of left ear (6612111450888) Left-sided tinnitus (H93.12) Active confirmed Problem Single subsegmental pulmonary embolism without acute cor pulmonale (I26.93) Active confirmed Problem Gastroesophageal reflux disease with esophagitis (disorder) (094231815) Gastroesophageal reflux disease with esophagitis without hemorrhage (K21.00) Active confirmed Problem Gastroesophageal reflux disease (450581562) Gastroesophageal reflux disease, unspecified whether esophagitis present (K21.9) Active confirmed Problem Protein S deficiency (6414811) Protein S deficiency (D68.59) Active confirmed Vital Signs Heart Rate 76 /min 12/11/2024 Temperature 97.5 degrees Fahrenheit 12/11/2024 Blood pressure diastolic 102 mm Hg 12/11/2024 Height 5 ft 2 in in 12/11/2024 Blood pressure systolic 160 mm Hg 12/11/2024 Weight 104 lbs 12/11/2024 BMI 19.02 kg/m2 12/11/2024 Encounters Encounter Location Date Provider Diagnosis [facility] [address] [place] [address] 06/10/2024 Provider Migration Gastroesophageal reflux disease with esophagitis without hemorrhage K21.00 [facility] [address] [place] [address] 12/11/2024 Larissa Reynolds Flank pain, right si de R10.A1 [facility] [address] [place] [address] 12/27/2023 Thomas Queen Essential hypertensi on I10 ; Acquired hypothyroidism E03.9 ; Protein S deficiency D68.59 ; Gastroesophageal reflux disease with esophagitis without hemorrhage K21.00 and Immunization(s) administered Z23 [facility] [address] [place] [address] 05/11/2024 Ursula McNees Essential hypertensi on I10 ; Acquired hypothyroidism E03.9 ; Protein S deficiency D68.59 and Gastroesophageal reflux disease with esophagitis without hemorrhage K21.00 [facility] [address] [address] 06/08/2024 Thomas Queen Essential hypertensi on I10 and Gastroesophageal reflux disease with esophagitis without hemorrhage K21.00 [facility] [address] [facility] [address] [place] [address] 06/22/2024 Ursula Cruz Essential hypertensi on I10 ; Encounter for Medicare annual wellness exam Z00.00 ; Acquired hypothyroidism E03.9 ; Protein S deficiency D68.59 ; Gastroesophageal reflux disease with esophagitis without hemorrhage K21.00 ; BMI 20.0-20.9, adult Z68.20 ; Epigastric pain R10.13 and Encounter for immunization Z23 [facility] [address] [facility] [address] [place] [address] 07/03/2024 Thomas Queen Infectious diarrhea A09 [facility] [address] [facility] [address] [place] [address] 07/10/2024 Thomas Queen Pain in right leg M79.604 ; Pain in left leg M79.605 and Abdominal pain, generalized R10.84 [facility] [address] [facility] [address] [place] [address] 07/20/2024 Fay Thomas Left upper quadrant pain R10.12 and Gastroesophageal reflux disease, unspecified whether esophagitis present K21.9 [facility] [place] [address] [address] 08/03/2024 Thomas Queen Gastroesophageal ref lux disease with esophagitis without hemorrhage K21.00 [facility] [address] [facility] [address] [place] [address] 08/07/2024 Thomas Queen Gastroesophageal ref lux disease with esophagitis without hemorrhage K21.00 and Essential hypertension I10 [facility] [place] [address] [address] 09/07/2024 Thomas Queen Essential hypertensi on I10 ; Gastroesophageal reflux disease with esophagitis without hemorrhage K21.00 and Encounter for screening for coronary artery disease Z13.6 [facility] [address] [facility] [address] [place] [address] 09/27/2024 Thomas Queen Coronary artery dise ase involving [place] coronary artery of [place] heart without angina pectoris I25.10 ; Essential hypertension I10 and Hospital discharge follow-up Z09 [facility] [place] [address] [place] [address] 03/22/2024 Fay Carballo [facility] [place] [address] [place] [address] 05/10/2024 Thomas Besson [facility] [address] [place] [address] 05/11/2024 Ursula Cruz [facility] [address] [place] [address] 06/30/2024 Thomas Besson [facility] [address] [place] [address] 07/20/2024 Thomas Besson [facility] [address] [place] [address] 08/02/2024 Thomas Besson [facility] [address] [place] [address] 08/23/2024 Thomas Besson [facility] [address] [place] [address] 09/06/2024 Thomas Besson [facility] [address] [place] [address] 09/22/2024 Thomas Besson Assessments Encounter Date Diagnosis (ICD Code) Assessment Notes Treatment Notes Treatment Clinical Notes Section Notes 12/27/2023 Essential hypertension (ICD-10 - I10) Blood [...] trial to see if Dr. Alanis at [facility] is available. She would prefer this route [...] 5mg daily 09/27/2024 Coronary artery disease involving [place] coronary artery of [place] heart without angina pectoris (ICD-10 - I25.10) - Patient had nuclear stress test with multivessel disease, CTA coronaries confirmed CAD and underwent PCI to RCA with complication of mild dissection and was admitted overnight - Feeling well today, denies SOB or chest pain even prior to procedure - Continue statin, aspirin, clopidigrol and xarelto. Counseled on use - Continue follow up with cardiology 12/11/2024 Flank pain, right side (ICD-10 - R10.A1) 09/27/2024 Hospital discharge follow-up (ICD-10 - Z09) [...] prescription if she has been purchasing this [id number] 05/11/2024 Gastroesophageal reflux disease with esophagitis without [...] Physical Therapy Eval and Treat 11/22/[address] ABD WOW 12/11/2024 Next Appt Details Provider Name:Larissa Alvarado ls, 12/19/2024 02:30:00 PM, [address], [place], [address], Insurance Providers Payer Name Payer Address Payer Phone Subscriber Number Group Number Insured Name Patient Relationship to Insured Coverage Start Date Coverage End Date [employer] [address] [address] [place] [address] [id number] Peggy Mcbride Self - patient is the [...]
--- NOTE | 2024-12-11 10:54 | CT_ITS ---
FINAL REPORT TECHNIQUE: Pre- and postcontrast images of the abdomen were performed by computed tomography. CLINICAL HISTORY: RT SIDE FLANK PAIN COMPARISON: 11/19/2024 FINDINGS: The lung bases demonstrate granulomatous changes. There are several stable, small hypodense liver lesions which are likely cysts. Gallbladder is present. The spleen is unremarkable. The adrenals are normal. The pancreas is unremarkable. There is a small hypodense left renal lesion best seen on delayed imaging, favor small cyst. There has been no change in gastric abnormal attenuation, gastritis not excluded. There is no small bowel obstruction. There is no abdominal lymphadenopathy or ascites. There is no acute osseous abnormality. IMPRESSION: Probable small left renal cyst. Persistent perigastric abnormal attenuation. Recommend clinical correlation for gastritis. Reviewed, Interpreted and Dictated by Onelia Ng MD Transcribed by Anitra June Authenticated and [facility]
[2024-12-11] MEDS: 0.9 % SODIUM CHLORIDE 50 ML VIAL 10 ML IV (11:45)
[2024-12-11] MEDS: IOPAMIDOL-370 (76%);100ML BOTTLE 80 ML IV (11:45)
== END 2024-12-11 23:59 | disposition home or self-care (01) ==
LOC: RAD 10:34
PROVIDERS: PCP Internal Medicine Adolescent Medicine
DX: R93.422 Abnormal radiologic findings on diagnostic imaging of left kidney (principal); R93.5 Abnormal findings on diagnostic imaging of other abdominal regions, including retroperitoneum; R10.A1 Flank pain, right side
CPT/HCPCS: 74170; Q9967

== ENCOUNTER 2024-12-13 12:54 | Outpatient (CLI) | payer MEDICARE, SELFPAY ==
[2024-12-13 13:07] LABS: Hematocrit 44.3 % (37.0-47.0); Hemoglobin 14.5 g/dL (12.2-16.2); Immature Granulocytes % 0.2 %; Mean Corpuscular HGB Conc 32.7 g/dL (31.8-35.4); Mean Corpuscular Hemoglobin 30.5 pg (27.0-31.2); Mean Corpuscular Volume 93.1 fl (81-99); Nucleated Red Blood Cells % 0 %; Platelet Count 290 K/mm3 (142-424); Red Blood Count 4.76 M/mm3 (4.20-5.40); Red Cell Distribution Width-SD 45.0 fL; White Blood Count 5.7 K/mm3 (4.8-10.8)
[2024-12-13 13:20] LABS: Alanine Aminotransferase 23 U/L (12-78); Albumin Level 4.7 g/dl (3.5-5.0); Albumin/Globulin Ratio 1.7 (1.1-1.8); Alkaline Phosphatase 87 U/L (38-126); Amylase 96 U/L (30-110); Anion Gap 13.3 mEq/L (5-15); Aspartate Amino Transferase 37 U/L (14-36); Bilirubin,Total 0.6 mg/dl (0.2-1.3); Blood Urea Nitrogen 14 mg/dl (7-17); Calcium 10.0 mg/dl (8.4-10.2); Carbon Dioxide 34 mmol/L (22.0-30.0); Chloride 100 mmol/L (98-107); Creatinine,Serum 0.90 mg/dl (0.52-1.04); Estimated Glomerular Filt Rate 60 ml/min (>60); GFR (African American) 73 ML/MIN (>60); Globulin 2.8 g/dL (1.3-3.2); Glucose 76 mg/dl (74-100); Lipase 150 U/L (23-300); Potassium 4.3 mmoL/L (3.5-5.1); Sodium 143 mmol/L (136-145); Total Protein,Serum 7.5 g/dl (6.3-8.2)
== END 2024-12-13 23:59 | disposition home or self-care (01) ==
LOC: LAB 12:54
PROVIDERS: PCP Internal Medicine Adolescent Medicine; Visit Provider Nurse Practitioner Family
DX: R10.11 Right upper quadrant pain (principal)
CPT/HCPCS: 36415; 80053; 82150; 83690; 85025

== ENCOUNTER 2024-12-14 07:19 | Outpatient (CLI) | payer MEDICARE, SELFPAY ==
--- NOTE | 2024-12-14 07:21 | US_ITS ---
FINAL REPORT TECHNIQUE: Sonographic images of the right upper quadrant were obtained. CLINICAL HISTORY: RUQ PAIN FINDINGS: PANCREAS: Unremarkable. LIVER: Homogeneous. No focal hepatic lesion. No intrahepatic biliary ductal dilatation. GALLBLADDER: No gallstones. No gallbladder wall thickening or pericholecystic fluid. COMMON DUCT: 1 mm. Normal for age. RIGHT KIDNEY: The right kidney measures 8.1 cm. There is no hydronephrosis, mass, or stone. FREE FLUID: None. IMPRESSION: Unremarkable ultrasound of the right upper quadrant. Reviewed, Interpreted and Dictated by Onelia Ng MD Transcribed by Yeny Joshi Authenticated and [facility]
== END 2024-12-14 23:59 | disposition home or self-care (01) ==
LOC: RAD 07:19
PROVIDERS: PCP Internal Medicine Adolescent Medicine; Visit Provider Nurse Practitioner Family
DX: R10.11 Right upper quadrant pain (principal)
CPT/HCPCS: 76705

== ENCOUNTER 2024-12-17 08:39 | Emergency (ER) | payer MEDICARE, SELFPAY ==
--- OUTSIDE RECORDS SUMMARY | 2024-10-19 05:15 | XMS_ITS ---
Author Organization [facility] Address [address] [place] [address] [place] [address] Care Team Providers Care Bridge Inspector Name Role Phone Thomas Queen Primary Care Provider [phone] Thomas Queen Unavailable Unavailable REASON FOR VISIT bp ck Encounters Encounter Location Date Provider Diagnosis [address] [address] 10/19/2024 Thomas Qeuen Plan Of Treatment Next Appt Details Provider Name:Larissa Alvarado ls, 12/19/2024 02:30:00 PM, [address], [place], [address], Progress Notes * REEDDahliahDOB: 3 (84 yo F)Acc No.[id number]:10/19/2024 Progress Notes Patient: Peggy CURIEL Provider: Cait Queen MD :1940 A ge:84 Y S ex:Female Date:10/19/2024 Address:[address] [id number] Subjective: * Chief Complaints: * 1 . Bp ck. * Medical History: Objective: * Vitals: Assessment: Plan: * Treatment: * * Electronic signature of Sidney Queen MD FAAP on 12/17/2024 at 09:05 AM EDT Sign off status: Pending * Provider: Cait Queen MD Date: 0 10/19/2024 Generated for Marine collins/Kasandra/Sarah on: 1 09:05 AM EDT
--- OUTSIDE RECORDS SUMMARY | 2024-12-11 05:30 | XMS_ITS ---
Author Organization [facility] Address [address] [facility] [address] [place] [address] Care Team Providers Care Endocrinology Teacher Name Role Phone Thomas Queen Primary Care Provider Thomas Queen Unavailable Unavailable Larissa Reynolds Unavailable [phone] Allergies Allergen (clinical drug ingredient) Drug/Non Drug Allergy documented on EMR Reaction Allergy Type Onset Date Status ciprofloxacin Cipro Unknown Drug Allergy Act aj Results Component Value Reference Range Notes Urinalysis Reviewed date:12/11/2024 03:54:59 PM Interpretation: Performing Lab: Notes/Report: Color/Clarity lt yellow Leuk neg Nitrite neg Urobili 0.2 Protein neg pH 7.0 Blood trace-intact Sp. Gr. 1.020 Ketone trace Bili neg Glucose neg CT ABD WOW Reviewed date:12/12/2024 02:55:16 PM Interpretation: Performing Lab: Notes/Report: REASON FOR VISIT severe pain in right side Medications Medication SIG (Take, Route, Frequency, Duration) Notes Start Date End Date Status Synthroid 50 MCG 1 tab(s) orally once a day; Duration: 90 days BRAND NAME ONLY 11/03/2022 Active Xarelto 10 MG TAKE 1 TABLET DAILY at bedtime; Duration: 90 days Active MYLANTA COAT AND COOL 1200 MG-270 MG-80 MG/10 ML 10 ML ORALLY 1-2 times a day Active NexIUM 20 MG 1 capsule 1/2 to 1 hour before morning meal Orally Once a day; Duration: 30 day(s) 08/07/2024 Active amLODIPine Besylate 2.5 MG 1 tab(s) orally twice a day Active Rosuvastatin Calcium 10 MG 1 tablet Orally Once a day Active Tylenol 325 MG 1 tablet as needed Orally every 6 hrs Active Clopidogrel Bisulfate 75 MG 1 tablet Orally Once a day Active Vital Signs Temperature 97.5 degrees Fahrenheit 12/12/19 25 Blood pressure systolic 160 mm Hg 12/12/19 25 Blood pressure diastolic 102 mm Hg 025 Heart Rate 76 /min 12/11/2024 Height 5 ft 2 in in 12/11/2024 Weight 104 lbs 12/11/2024 BMI 19.02 kg/m2 12/11/2024 Encounters Encounter Location Date Provider Diagnosis [facility] [address] [place] [address] 12/11/2024 Larissa Reynolds Flank pain, right side R10.A1 Assessments Encounter Date Diagnosis (ICD Code) Assessment Notes Treatment Notes Treatment Clinical Notes Section Notes 12/11/2024 Flank pain, right side (ICD-10 - R10.A1) STAT CT imaging of the a/p with and without contrast to rule out acute urologic and/or gastrointestinal conditions. Urinalysis reviewed and remarkable for trace microscopic hematuria and proteinuria. Urine sent for culture. Advised to use OTC analgesics sparingly as needed for pain control. Will personally review imaging with further recommendations pending the findings on imaging. Discussed return to office/ ER precautions. Patient amenable. Follow-up in 1 week, sooner if needed. Plan Of Treatment Treatment Notes Assessment Notes Flank pain, right side STAT CT imaging o f the a/p with and without contrast to rule out acute urologic and/or gastrointestinal conditions. Urinalysis reviewed and remarkable for trace microscopic hematuria and proteinuria. Urine sent for culture. Advised to use OTC analgesics sparingly as needed for pain control. Will personally review imaging with further recommendations pending the findings on imaging. Discussed return to office/ ER precautions. Patient amenable. Follow-up in 1 week, sooner if needed. Pending Test Test Name Order Date CULTURE, URINE, ROUTINE (395) 12/11/2024 Next Appt Details Follow Up: 1 Week, Reason: F /u on flank pain Provider Name:Larissa dallas, 12/19/2024 02:30:00 PM, [address], [address], [place], [address], Progress Notes * Dahlia MCBRIDEhDOB: 3 (84 yo F)Acc No.[id number]:12/11/2024 Progress Notes Patient: Peggy CURIEL Provider: LUIS EDUARDO Biggs :1940 A ge:84 Y S ex:Female Date:12/11/2024 Address:[address] [place] [address] [place], [place], [id number] Pcp:Thomas Queen Subjective: * Chief Complaints: * 1 . Severe pain in right side. * HPI: g en: Patient is an 84 year old female with PMHx of HTN, PE, GERD, LEANDRO here with complaints of acute, radiating right sided flank pain since Wednesday. No inciting events. Gradual onset and worsening. P ain is worse with lying down. No effect with palpation. No exacerbation with inspiration. No urinary symptoms of dysuria or gross hematuria. No new cough. She is having regular soft bowel movements. Tylenol had no effect on her pain. Pain was acutely worse on Wednesday, and is still present but not as severe today. She rates it as a 10/10 yesterday and a 7/10 today. * ROS: C ARDIOLOGY: no D izziness. n o C hest pain. n o P alpitations. n o S hortness of breath. C ONSTITUTIONAL: no L oss of appetite. n o F ever. n o W eakness. D ERMATOLOGY: no R álvaro. G ASTROENTEROLOGY: Nausea y es, i ntermittent with pain, no effect with/without food. n o V omiting. A bdominal pain y es. n o D iarrhea. n o C onstipation. n o B lood in stool. * Medical History: H ypothyroidism, PE (05/16/2021), DVT (Right leg 02/2018), GERD, Varicose Veins- has had them stipped in 2008, Hiatal Hernia - EGD 08/30 - gastritis - biopsies negative, Shingles 2004, Protein S deficiency. * Medications: T aking Rosuvastatin Calcium 10 [...] meal Orally Once a day , Discontinued Aspirin 81 MG Tablet Delayed Release 1 tablet Orally Once a day , Medication List reviewed and reconciled with the patient * Allergies: C ipro. Objective: * Vitals: N urse: aw, Pain: 7, Temp: 97.5, RR: 18, HR: 76, BP: 160/102, Ht: 5 ft 2 in, Wt: 104, BMI:19.02. * Examination: G eneral Examination: General P leasant and Cooperative, NAD on RA, Does not appear acutely ill. Oral cavity: n ormal. Chest: n ormal. Heart: n ormal. Lungs: c lear to auscultation. Abdomen: S oft, non-tender, non distended. Normal bowel sounds, no guarding, no rebound tenderness. No organomegaly. No CVA tenderness with percussion.. Neurologic Exam: N ormal gait and station. Alert and oriented to person place and time. No focal signs.. Psych P leasant and cooperative. Recent memory grossly intact, remote history seems slightly impaired. Normal thought content. Judgement grossly intact. Slightly tangential but otherwise normal speech.. Assessment: * Assessment: 1. F lank pain, right side - R10.A1 (Primary) Plan: * Treatment: Value Reference Range C olor/Clarity lt yellow * L euk neg * N itrite neg * U robili 0.2 * P rotein neg * p H 7.0 * B lood trace-intact * S p. Gr. 1.020 * K etone trace * B maria teresa neg * G lucose neg ?Imaging: CT ABD WOW (Performed Date - 12/12/2024)* Case # [id number]- No auth r equired for CPT 13492 UHCSTATShawn Segura R 12/12/2024 09:16:51 AM EDT >Larissa Reynolds 12/12/2024 01:58:24 PM EDT > Please inform pt that there were no acute abnormalities. Still some concern for inflammation of the stomach (gastritis). Please confirm that she has a F/U with me. Thank you!Shawn Segura R 12/12/2024 02:50:42 PM EDT > lvmShawn Segura R 12/12/2024 02:55:04 PM EDT > pt notified * Notes: STAT CT imaging of the a/p with and without contrast to rule out acute urologic and/or gastrointestinal conditions. Urinalysis reviewed and remarkable for trace microscopic hematuria and proteinuria. Urine sent for culture. Advised to use OTC analgesics sparingly as needed for pain control. Will personally review imaging with further recommendations pending the findings on imaging. Discussed return to office/ ER precautions. Patient amenable. Follow-up in 1 week, sooner if needed. ? * Procedure Codes: 8 1002 URINALYSIS, Modifiers: QW , G2211 Complex e/m visit add on * Follow Up: 1 Week (Reason: F/u on flank pain) * * Sign off status: Completed true * Provider: LUIS EDUARDO Biggs Date: Generated for Marine collins/Kasandra/Brandonitting on: 09:05 AM EDT History and Physical Notes * Examination Category Sub-Category Detail Notes Category Not es General Examination Heart: normal Lungs: clear to auscultatio n Abdomen: Soft, non-tender, no n distended. Normal bowel sounds, no guarding, no rebound tenderness. No organomegaly. No CVA tenderness with percussion. Neurologic Exam: Normal gait and stat ion. Alert and oriented to person place and time. No focal signs. Oral cavity: normal Chest: normal General Pleasant and Coopera tive, NAD on RA, Does not appear acutely ill Psych Pleasant and coopera tive. Recent memory grossly intact, remote history seems slightly impaired. Normal thought content. Judgement grossly intact. Slightly tangential but otherwise normal speech.
--- OUTSIDE RECORDS SUMMARY | 2024-12-13 08:15 | XMS_ITS ---
Author Organization [facility] Address [address] [place] [address] Care Team Providers Care Handhole Machine Operator Name Role Phone Thomas Queen Primary Care Provider Thomas Queen Unavailable Unavailable Ursula Arroyo Unavailable [phone] Allergies Allergen (clinical drug ingredient) Drug/Non Drug [...] 12/13/2024 Encounters Encounter Location Date Provider Diagnosis [facility] [address] [facility] [address] [facility] [address] [place] [address] 12/13/2024 Ursula Arroyo Right upper quadrant pain [...] Appt Details Follow Up: prn, Reason: Provider Name:Larissa dallas, 12/19/2024 02:30:00 PM, [address] [facility], [address], [place], [address], Progress Notes * Dalhia MCBRIDEhDOB: 3 (84 yo F)Acc No.[id number]:12/13/2024 Progress Notes Patient: Peggy CURIEL Provider: Brittney Arroyo APRN :1940 A ge:84 Y S ex:Female Date:12/13/2024 Address:[address], [place], [id number] Pcp:Thomas Queen Subjective: * Chief Complaints: * [...] Brittney Arroyo APRN Date: Generated for Marine collins/Kasandra/Brandonitting on: 09:04 AM EDT History and Physical Notes * [...]
--- OUTSIDE RECORDS SUMMARY | 2024-12-15 07:30 | XMS_ITS ---
Author Organization [facility] D [facility] Address [address] [place] [address] Care Team Providers Care Heart Surgeon Name Role Phone Thomas Queen Primary Care Provider Thomas Queen Unavailable Unavailable Ursula Arroyo Unavailable [phone] Allergies Allergen (clinical drug ingredient) Drug/Non Drug Allergy documented on EMR Reaction Allergy Type Onset Date Status ciprofloxacin Cipro Unknown Drug Allergy Act aj Reason For Referral Reason HIDA scan Diagnosis 1 Right upper quadrant pain (R10.11) Referral Organization [facility] Referring Provider First Name Ursula Referring Provider Last Name Cruz Referring Provider Speciality [facility] General Notes Ilan Vogt 12/2024 03:13:33 PM > faxed and they will call pt Referral Priority Stat REASON FOR VISIT Very bad back/gallbladder pain, feels like a knife stabbing her, did US of gallbladder at [facility] yesterday Medications Medication SIG (Take, Route, [...] 12/15/2024 Encounters Encounter Location Date Provider Diagnosis [place] [facility] [address] [facility] [address] [place] [address] 12/15/2024 Ursula McNees Right upper quadrant pain [address], [place], [address], Progress Notes * Dahlia MCBRIDEhDOB: 3 (84 yo F)Acc No.[id number]:12/15/2024 Progress Notes Patient: Peggy CURIEL Provider: Brittney Arroyo APRN :1940 A ge:84 Y S ex:Female Date:12/15/2024 Address:[address] [place] [address] [place], [place], [id number] Pcp:Thomas Queen Subjective: * Chief Complaints: * 1 . Very bad back/gallbladder pain, feels like a knife stabbing her. 2. did US of gallbladder at [facility] yesterday. * HPI: G astroenterology: 84 [...] true * Provider: Brittney Arroyo APRN Date: 1 Generated for Marine collins/Kasandra/Brandonitting on: 1 09:04 AM EDT History and Physical Notes [...]
[2024-12-17 08:45] VITALS: BP 211/96; PULSE 79; O2SAT 99
[2024-12-17 08:47] VITALS: BP 189/103; PULSE 84; PULSE 89; RESP 16; TEMP 36.6; O2SAT 100; O2SAT 99; BMI 20.1
--- OUTSIDE RECORDS SUMMARY | 2024-12-17 09:05 | XMS_ITS | Clinical Summary ---
Author Organization [facility] Address [address] [place] [address] Care Team Providers Care Rope Maker Name Role Phone Provider, No Known Primary [...] Pneumococcal Vaccine 50+ Completed 07/31/2021, 08/2015 Insurance [facility] Medicare [employer] PPO Care Teams Rope Maker Relationship Specialty Start Date End Date Provider, No Known [facility] [address] PCP - General 09/27/16
--- OUTSIDE RECORDS SUMMARY | 2024-12-17 09:05 | XMS_ITS | Referral Summary ---
Author Organization [employer] ([place], [place], [place], [place]) Address [address] [place] [address] Care Team Providers Care Tractor Drill Operator Name Role Phone Unavailable Primary Care Provider Unavailabl e Social History Tobacco Use Types Packs/Day Years Used Date Smoking Tobacco: Never Assessed Comments Unknown Sex and Gender Information Value Date Recorded Sex Assigned at Not on file Legal Sex Female 6:05 PM CDT Gender Identity Not on file Sexual Orientation Not on file Plan of Treatment Not on file Insurance [facility] MEDICARE ADVANTAGE
--- OUTSIDE RECORDS SUMMARY | 2024-12-17 09:05 | XMS_ITS | Patient Health Record ---
Author Organization [facility] Address [address] [place] [address] Care Team Providers Care Algebra Tutor Name Role Phone Thomas Queen Primary Care Provider Thomas Queen Unavailable Unavailable Fay Carballo Unavailable [phone] Ursula Arroyo Unavailable [phone] Fay Thomas Unavailable [phone] Migration, Provider Unavailable Unavailable Larissa Reynolds Unavailable [phone] Allergies Allergen (clinical drug ingredient) Drug/Non Drug Allergy documented on EMR Reaction Allergy Type Onset Date Status ciprofloxacin Cipro Unknown Drug Allergy Act aj Results Component Value Reference Range Notes Ultrasound : Gallbladder Reviewed date:12/15/2024 12:02:23 PM Interpretation: Performing Lab: Notes/Report: M-Complete Blood Count Auto Diff Reviewed date:12/13/2024 [...] 0 IG% 0.2 NRBC# 0 IG# 0.01 M-Comprehensive Metabolic Pa chi Reviewed date:12/13/2024 03:35:17 [...] AGRATIO 1.7 1.1-1.8 ALP 87 38-126 U/L M-Amylase Reviewed date:12/13/2024 03:35:17 PM Interpretation: Performing Lab: Notes/Report: DILLON 96 30-110 U/L M-Lipase Reviewed date:12/13/2024 03:35:17 PM Interpretation: Performing Lab: Notes/Report: LIP 150 23-300 U/L CT ABD WOW Reviewed date:12/12/2024 02:55:16 PM Interpretation: Performing Lab: Notes/Report: Urinalysis Reviewed date:12/11/2024 03:54:59 PM Interpretation: Performing Lab: Notes/Report: Color/Clarity lt yellow Leuk neg Nitrite neg Urobili 0.2 Protein neg pH 7.0 Blood trace-intact Sp. Gr. 1.020 Ketone trace Bili neg Glucose neg THYROID PANEL WITH TSH (7444 ) Reviewed date:12/29/2023 07:58:19 AM Interpretation: Performing Lab:[facility] [employer] [id number] [facility] [place] YllyLD[address] Toni Rosen Notes/Report: NON-FASTING; NON-FASTING T3 UPTAKE 33 22-35 % T4 (THYROXINE), TOTAL 7.2 5.1-11.9 mcg/dL FREE T4 INDEX (T7) 2.4 1.4-3.8 TSH 3.50 0.40-4.50 mIU/L LIPID PANEL, STANDARD (7600) Reviewed date:06/26/2024 12:55:44 PM Interpretation: Performing Lab:[facility] [employer] [id number] [facility], [facility] HospitalFfvlVZ[address] Toni Rosen Notes/Report: NON-FASTING; NON-FASTING; NON-FASTING; NON-FASTING FASTING:YES FASTING: YES CHOLESTEROL, TOTAL 205 <200 mg/dL HDL CHOLESTEROL 75 > OR = 50 mg/dL TRIGLYCERIDES 84 <150 mg/dL LDL-CHOLESTEROL 112 Reference range: <100 Desirable range <100 mg/dL for primary prevention; <70 mg/dL for patients with CHD or diabetic patients with > or = 2 CHD risk factors. LDL-C is now calculated using the Davis-Serenity calculation, which is a validated novel method providing better accuracy than the Friedewald equation in the estimation of LDL-C. Davis GONSALVES et al. ALONDRA. 2013;310(19): 4855-5368 (http://education.[employer]Teachable/faq/FAQ16 4) CHOL/HDLC RATIO 2.7 <5.0 (calc) NON HDL CHOLESTEROL 130 <130 mg/dL (calc) For patients with diabetes plus 1 major ASCVD risk factor, treating to a non-HDL-C goal of <100 mg/dL (LDL-C of <70 mg/dL) is considered a therapeutic option. COMPREHENSIVE METABOLIC PANE L (58902) Reviewed date:06/26/2024 12:55:44 PM Interpretation: Performing Lab:NIL[facility] Back[employer]e1355 [facility] MexicoRallyhoodHunterdon [facility], [facility] HospitalDlwgCN[address] Toni Rosen Notes/Report: NON-FASTING; NON-FASTING; NON-FASTING; NON-FASTING [...] ALT 17 6-29 U/L BASIC METABOLIC PANEL (18547 ) Reviewed date:12/29/2023 07:58:19 AM Interpretation: Performing Lab:[facility]IL[facility]te[facility] Hospitale1355 [facility] MedicalH[facility], [facility] HospitalJudeVM[address] Toni Rosen Notes/Report: NON-FASTING; NON-FASTING GLUCOSE 111 [...] Reviewed date:06/26/2024 12:55:44 PM Interpretation: Performing Lab:[facility] [employer] Sfdz4579 [address] [facility], [facility] HospitalQjhcNA[address] Toni Rosen Notes/Report: NON-FASTING; NON-FASTING; NON-FASTING; NON-FASTING [...] MPV 10.8 7.5-12.5 fL ABSOLUTE NEUTROPHILS 4158 7870-8965 cells/uL ABSOLUTE LYMPHOCYTES 898 948-2337 cells/uL ABSOLUTE MONOCYTES 448 200-950 cells/uL ABSOLUTE EOSINOPHILS 49 15-500 cells/uL ABSOLUTE BASOPHILS 49 0-200 cells/uL NEUTROPHILS 77 LYMPHOCYTES 12.9 MONOCYTES 8.3 EOSINOPHILS 0.9 BASOPHILS 0.9 TSH W/REFLEX TO FT4 (90848) Reviewed date:06/26/2024 12:55:44 PM Interpretation: Performing Lab:[facility] [employer] [address], [facility] HospitalCijhLS[address] Toni Rosen Notes/Report: NON-FASTING; NON-FASTING; NON-FASTING; NON-FASTING FASTING:YES FASTING: YES TSH W/REFLEX TO FT4 4.50 0.40-4.50 mIU/L HELICO[employer]CTER PYLORI AG, EIA, STOOL (00797) Reviewed date:07/27/2024 12:33:32 PM Interpretation: Performing Lab:NIL[facility], [facility] HospitalPdvkOE[address] Toni Rosen Notes/Report: NON-FASTING HELICOBACTER PYLORI AG, EIA, STOOL SEE NOTE HELICO[employer] PYL[employer]I [employer], EIA, STOOL Micro Number: [id number] Test Status: Final Specimen Source: Stool Specimen [...] 1 Epigastric pain (R10 .13) Referral Organization [facility] Referring Provider First Name Ursula Referring Provider Last Name Cruz Referring Provider Speciality [facility] Referred Organization [facility] Referred Address [address],[address], Referred Provider Specialty Gastroentero logy General Notes Nayely Manley 2024 12:04:31 PM >, Nayely Manley 06/23/2024 12:07:04 PM >sent to Dr. Wiley Referral Priority Routine Reason Dr. John Alanis at for egd... has seen before Diagnosis 1 Gastroesophageal ref lux disease with esophagitis without hemorrhage (K21.00) Referral Organization [facility] MAXIM[facility] RG Referring Provider First Name Thomas Referring Provider Last Name Bret Referring Provider Speciality Internal edicine Referred Organization [facility] Referrals Referred Address [address] [facility] [place],[address] Referred Provider Specialty Gastroentero logy General Notes Nayely Manley 2024 12:04:12 PM >sent to , Nayely Manley 08/08/2024 09:22:29 AM >sent again Referral Priority Urgent Reason Dr. Locke Diagnosis 1 Abnormal stress test (R94.39) Referral Organization [facility] Referring Provider First Name Thomas Referring Provider Last Name Bret Referring Provider Speciality Internal M edicine Referred Organization [facility] Referred Address [address] [place], [place],[address], Referred Provider Specialty Cardiovascul ar Disease General Notes Nayely Manley 2024 04:02:10 PM >sent to Dr. Locke at [facility] Referral Priority Routine Reason Please set up CTA of coronary arteries at [facility] if possible-questionably abnormal nuclear stress test Diagnosis 1 Encounter for screen ing for coronary artery disease (Z13.6) Referral Organization [facility] Referring Provider First Name Thomas Referring Provider Last Name Bret Referring Provider Speciality Internal M edicine Referred Organization [facility] Referred Address [address] [facility] [address], [place],[address], Referred Provider Specialty Diagnostic R adiology General Notes Ilan Vogt 05/2024 02:20:55 PM > faxed to [facility] and they will call pt- [facility] does not do them, Nayely Manley 09/11/2024 09:14:11 AM >Scheduled at [facility] 09-12-24 at 10- be there at 9. No caffeine 12 hours prior including chocolate. Nothing to eat or drink 2 hours before, except for water. Can take BP meds in the am if needed., Nayely Manley 09/11/2024 09:16:33 AM >Left a VM with patient Referral Priority Routine Referral Appointment Date 09/12/2024 Reason HIDA scan Diagnosis 1 Right upper quadrant pain (R10.11) Referral Organization [facility] Referring Provider First Name Ursula Referring Provider Last Name Cruz Referring Provider Speciality Family Emily godwinice General Notes Ilan Vogt 12/2024 03:13:33 PM > faxed and they will call pt Referral Priority Stat Medications Medication SIG (Take, Route, Frequency, Duration) Notes Start Date End Date Status Xarelto 10 MG TAKE 1 TABLET DAILY at bedtime; Duration: 90 days Active Synthroid 50 MCG 1 tab(s) orally once a day; Duration: 90 days BRAND NAME ONLY 11/03/2022 Active Tylenol 325 MG 1 tablet as needed Orally every 6 hrs Active Clopidogrel Bisulfate 75 MG 1 tablet Orally Once a day Active MYLANTA COAT AND COOL 1200 MG-270 MG-80 MG/10 ML 10 ML ORALLY 1-2 times a day Active amLODIPine Besylate 2.5 MG 1 tab(s) orally twice a day Active traMADol HCl 50 MG 1 tablet as needed Orally every 8 hrs; Duration: 7 days As needed 12/15/2024 Active Rosuvastatin Calcium 10 MG 1 tablet [...] W/U Status Risk Notes Problem Sore throat (980792332) Sore throat (J02.9) Active confirmed Problem Essential hypertension (99735481) Essential hypertension (I10) Active confirmed Problem Seasonal allergy (666203320) Seasonal allergies (J30.2) Active confirmed Problem Atherosclerotic heart disease of [place] coronary artery without angina pectoris (591651390258144) Coronary artery disease involving [place] coronary artery of [place] heart without angina pectoris (I25.10) Active confirmed Problem Acquired hypothyroidism (739177058) Acquired hypothyroidism (E03.9) Active confirmed Problem Generalized anxiety disorder (55078852) LEANDRO (generalized anxiety disorder) (F41.1) Active confirmed Problem Tinnitus of left ear (8790101718488) Left-sided tinnitus (H93.12) Active confirmed Problem Single subsegmental pulmonary embolism without acute cor pulmonale (I26.93) Active confirmed Problem Gastroesophageal reflux disease with esophagitis (disorder) (639235618) Gastroesophageal reflux disease with esophagitis without hemorrhage (K21.00) Active confirmed Problem Gastroesophageal reflux disease (623762773) Gastroesophageal reflux disease, unspecified whether esophagitis present (K21.9) Active confirmed Problem Protein S deficiency (1070163) Protein S deficiency (D68.59) Active confirmed Vital Signs Heart Rate 68 /min 12/15/2024 Temperature 98 degrees Fahrenheit 12/15/2024 Blood pressure diastolic 84 mm Hg 12/15/2024 Height 5 ft 2 in in 12/15/2024 Blood pressure systolic 125 mm Hg 12/15/2024 Weight 105.8 lbs 12/15/2024 BMI 19.35 kg/m2 12/15/2024 Encounters Encounter Location Date Provider Diagnosis [facility] [address] [facility] [address] [place] [address] 06/10/2024 Provider Migration Gastroesophageal reflux disease with esophagitis without hemorrhage K21.00 [facility] [address] [facility] [address] [place] [address] 12/27/2023 Thomas Besson Essential hypertensi on I10 ; Acquired hypothyroidism E03.9 ; Protein S deficiency D68.59 ; Gastroesophageal reflux disease with esophagitis without hemorrhage K21.00 and Immunization(s) administered Z23 [facility] [address] [place] [address] 05/11/2024 Ursula McNees Essential hypertensi on I10 ; Acquired hypothyroidism E03.9 ; Protein S deficiency D68.59 and Gastroesophageal reflux disease with esophagitis without hemorrhage K21.00 [facility] [address] [address] 06/08/2024 Thomas Besson Essential hypertensi on I10 and Gastroesophageal reflux disease with esophagitis without hemorrhage K21.00 [facility] [address] [place] [address] 06/22/2024 Ursula McNees Essential hypertensi on I10 ; Encounter for Medicare annual wellness exam Z00.00 ; Acquired hypothyroidism E03.9 ; Protein S deficiency D68.59 ; Gastroesophageal reflux disease with esophagitis without hemorrhage K21.00 ; BMI 20.0-20.9, adult Z68.20 ; Epigastric pain R10.13 and Encounter for immunization Z23 [facility] [address] [facility] [address] [place], [place] [address] 07/03/2024 Thomas Queen Infectious diarrhea A09 [facility] [address] [facility] [address] [place], [place] [address] 07/10/2024 Thomas Queen Pain in right leg M79.604 ; Pain in left leg M79.605 and Abdominal pain, generalized R10.84 [facility] [address] [place], [place] [address] 07/20/2024 Fay Bergmanell Left upper quadrant pain R10.12 and Gastroesophageal reflux disease, unspecified whether esophagitis present K21.9 [facility] [address] [place] [address] 08/03/2024 Thomas Besmaylin Gastroesophageal ref lux disease with esophagitis without hemorrhage K21.00 [facility] [address] [place], [place] [address] 08/07/2024 Thomas Besmaylin Gastroesophageal ref lux disease with esophagitis without hemorrhage K21.00 and Essential hypertension I10 [facility] [address] [place] [address] 09/07/2024 Thomas Queen Essential hypertensi on I10 ; Gastroesophageal reflux disease with esophagitis without hemorrhage K21.00 and Encounter for screening for coronary artery disease Z13.6 [facility] [address] [place], [place] [address] 09/27/2024 Thomas Queen Coronary artery dise ase involving [place] coronary artery of [place] heart without angina pectoris I25.10 ; Essential hypertension I10 and Hospital discharge follow-up Z09 [facility] [address] [place] [address] 12/11/2024 Larissa Reynolds Flank pain, right si de R10.A1 [facility] [address] [place] [address] 12/13/2024 Ursula McNees Right upper quadrant pain R10.11 [facility] [address] [place] [address] 12/15/2024 Ursula McNees Right upper quadrant pain R10.11 and Acute gastritis without hemorrhage, unspecified gastritis type K29.00 [facility] [address] [place] [address] 03/22/2024 Fay Carballo [facility] [address] [place] [address] 05/10/2024 Thomasteresita Queen [facility] [address] [facility] [address] [place] [address] 05/11/2024 Ursula McNees [facility] [address] [place] [address] 06/30/2024 Thomas Besson [facility] [address] [place] [address] 07/20/2024 Thomas Besson [facility] [address] [place] [address] 08/02/2024 Thomas Besson [facility] [address] [place] [address] 08/23/2024 Thomas Besson [facility] [address] [place] [address] 09/06/2024 Thomas Besson [facility] [address] [place] [address] 09/22/2024 Thomas Besson Assessments Encounter Date Diagnosis [...] Shingrix series started today Aged out for mammogram/colonosco py 07/20/2024 Left upper quadrant pain (ICD-10 - [...] Dr[facility] Alanis at [facility] is available. She would prefer this route [...] Pain in left leg (ICD-10 - M79.605) 12/11/2024 Flank pain, right side (ICD-10 - [...] Follow-up in 1 week, sooner if needed. 12/13/2024 Right upper quadrant pain (ICD-10 - R10.11) Exam and symptoms concerning for GB disease Labs unremarkable No fat diet, supportive care, warm compresses, Tylenol prn GB US scheduled for tomorrow. Urgent return precautions discussed 12/15/2024 Right upper quadrant pain (ICD-10 - R10.11) Exam is still concerning for GB disease despite unremarkable US and CT scan. Will obtain HIDA scan. Labs on Wed unremarkable. Restart nexium as gastritis could be contributing. Tramadol PRN severe pain pending HIDA scan next week. 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 (ICD-10 - I25.10) [...] prescription if she has been purchasing this [id number] 05/11/2024 Gastroesophageal reflux disease with esophagitis without [...] Name Order Date MRA : Head 06/23/2022 HIDA scan 12/15/2024 Miscell Ref Lab Test 04/23/2022 Physical Therapy : Vertigo 08/19/2022 Physical Therapy Eval and Treat 11/22/19 24 CULTURE, URINE, ROUTINE (395) 12/11/2024 Next Appt Details Provider Name:Larissa dallas, 12/19/2024 02:30:00 PM, [address], [place], [address], Insurance Providers Payer Name Payer Address Payer Phone Subscriber Number Group Number Insured Name Patient Relationship to Insured Coverage Start Date Coverage End Date [employer] [address] [address] [place] [address] [id number] Peggy Mcbride Self - patient is the [...]
--- OUTSIDE RECORDS SUMMARY | 2024-12-17 09:05 | XMS_ITS | Clinical Summary ---
Author Organization [employer] ([place], [place], [place], [place]) Address [address] [place] [address] Care Team Providers Care Shore Man Name Role Phone Unavailable Primary Care Provider Unavailabl e Social History Tobacco Use Types Packs/Day Years Used Date Smoking Tobacco: Never Assessed Comments Unknown Sex and Gender Information Value Date Recorded Sex Assigned at Not on file Legal Sex Female 6:05 PM CDT Gender Identity Not on file Sexual Orientation Not on file Plan of Treatment Not on file Insurance [facility]IC[facility] ADVANTAGE
--- NOTE | 2024-12-17 09:09 | XR_ITS ---
PROCEDURE INFORMATION: Exam: XR Chest Exam date and time: 12/17/2024 9:30 AM Age: 84 years old Clinical indication: Pain; Chest pressure; Prior surgery; Surgery date: 6+ months; Surgery type: Stents; Additional info: Ruq pain, eval for referred pain from pna TECHNIQUE: Imaging protocol: Radiologic exam of the chest. Views: 1 view. COMPARISON: CR XR CHEST PORTABLE 11/18/2024 9:40 PM FINDINGS: Lungs: Unremarkable. No consolidation. Pleural spaces: Unremarkable. No pleural effusion. No pneumothorax. Heart/Mediastinum: Unremarkable. No cardiomegaly. Bones/joints: Unremarkable. IMPRESSION: No acute findings.
--- NOTE | 2024-12-17 09:10 | HMH.EDGENADL ---
Discharge Plan Disposition Chief Complaint: Abdominal Pain Prescriptions Prescriptions: No Action levothyroxine [Synthroid] 50 mcg tablet 50 mcg PO DAILY rosuvastatin [Crestor] 10 mg tablet 10 mg PO DAILY Qty: 30 2RF pantoprazole [Protonix] 20 mg tablet,delayed release (DR/EC) 20 mg PO DAILY Qty: 30 2RF amlodipine 2.5 mg tablet 2.5 mg PO BID Qty: 180 3RF clopidogrel [Plavix] 75 mg tablet 75 mg PO DAILY Qty: 90 3RF Xarelto 10 mg tablet 10 mg PO QPMWITHMEAL Referrals Follow up/Referrals: Thomas Queen MD [Primary Care Provider, Internal Medicine] - See instructions Instructions Patient Instructions: DI for Acute Abdominal Pain Print Language Print Language: Bahamian Discharge ED Provider: Mary Segura General Adult HPI General Chief complaint: Abdominal Pain Stated complaint: abdominal pain Time Seen by Provider: 12/17/24 08:56 Mode of Arrival: Ambulatory Source of Information: Patient Description of Symptoms (Recalled from ER Triage Doc. by RN): pt c/o umbilical/epigasteric pain x3wks. pt reports the pain wraps around to her R flank. pt states it is a 10/10 and sharp in nature. pt states she has had a CT and US checking for gallbladder issues that both came back negative. pt reports nausea. She denies urinary symptoms, SOA, CP, V/D. History of Present Illness HPI narrative: This is an 84-year-old female with history of gastritis, CAD, hiatal hernia, history of PE, history of DVT, UTI, and GERD who presents to the emergency department with right upper quadrant and epigastric abdominal pain. She states the symptoms have been present for the past 3 weeks. There is no associated fever, vomiting, diarrhea, or radiation of her abdominal pain. She has been evaluated multiple times recently for the symptoms and has had abdominal CT scans in addition to a gallbladder ultrasound. She has been told there is nothing wrong with her gallbladder. She is currently pending evaluation for a different type of scan for her gallbladder. Denies any associated headache, chest pain, shortness of breath, dysuria, diarrhea, constipation, or flank pain. Related Data Home Medications ?Medication ?Instructions ?Recorded ?Confirmed levothyroxine 50 mcg tablet 50 mcg PO DAILY 07/02/21 11/22/24 (Synthroid) rivaroxaban 10 mg tablet (Xarelto) 10 mg PO QPMWITHMEAL 04/24/22 11/22/24 Previous Rx's ?Medication ?Instructions ?Recorded rosuvastatin 10 mg tablet (Crestor) 10 mg PO DAILY #30 tabs 09/06/24 amlodipine 2.5 mg tablet 2.5 mg PO BID #180 tabs 10/04/24 clopidogrel 75 mg tablet (Plavix) 75 mg PO DAILY #90 tabs 10/04/24 pantoprazole 20 mg tablet,delayed 20 mg PO DAILY #30 tabs 11/22/24 release (Protonix) Allergies Allergy/AdvReac Type Severity Reaction Status Date / Time ciprofloxacin (From Cipro) Allergy Severe Other Verified 12/17/24 09:18 [facility] Disclaimer: The information contained in this section may have been updated after the patient was seen, as this information can be updated by other users. Medical History Abnormal cardiovascular stress test Angina pectoris Other chest pain Hiatal hernia GERD (gastroesophageal reflux disease) HLD (hyperlipidemia) History of pulmonary embolus (PE) Personal history of DVT (deep vein thrombosis) HTN (hypertension) Encounter for pre-operative cardiovascular clearance Abnormal electrocardiogram [ECG] [EKG] SNHL (sensorineural hearing loss) Dysfunction of eustachian tube Tinnitus Surgical History History of cardiac cath Social History Smoking Status: Never smoker alcohol intake: never substance use type: denies use current occupational status: retired Travel in the last 8 weeks?: None household members: spouse housing: house Have you lived/traveled outside US in past 30 days?: No Contact w/someone who lives/traveled outside US past 30 days?: No Exposure to someone with infectious disease in past 14 days?: No Do you have a fever (greater than 100.4 F or 38 C)?: No Have you tested positive for COVID-19?: No Exposed to someone with COVID-19 in past 14 days?: No Do you have a sore throat?: No Do you have a cough?: No Do you have any weakness?: No Do you have any diarrhea?: No Are you experiencing any unusual bleeding?: No Do you have any muscle aches/pain?: No Do you have any abdominal pain?: No Are you experiencing loss of taste or smell?: No Other Medical History Have you received the Flu Vaccine for this season: No Have you received the Pneumonia Vaccine: No ROS Obtained: Yes All systems reviewed & no additional complaints except as documented Physical Exam General General appearance: alert and in no apparent distress Head Head exam: atraumatic Eye Eye exam: Present normal appearance, PERRL and EOMI ENT ENT exam: Present mucous membranes moist Neck Neck exam: Present normal inspection and full ROM; Absent tenderness Chest Chest inspection: Present symmetric chest wall rise; Absent tenderness Respiratory Respiratory exam: Absent respiratory distress, wheezes or accessory muscle use Cardiovascular Cardiovascular exam: Present regular rate and normal rhythm Abdominal Exam Abdominal exam: Present soft and tenderness (Mild right upper quadrant and epigastric tenderness without guarding or peritonitis); Absent guarding Extremities Exam Extremities exam: Present full ROM; Absent tenderness Neurological Exam Neurological exam: Present alert and oriented X3 Psychiatric Psychiatric exam: Present normal affect Skin Skin exam: Present warm and dry Medical Decision Making Medical Records Screening: Per USPSTF and CDC recommendations, given the prevalence of disease in our region, it is our hospital?s policy to screen for HIV and viral Hepatitis for all patients aged 18 and over and those with ongoing risk factors. Anders Inquiry Pt receiving controlled substance: No Vital Signs: 12/17/24 08:45 12/17/24 08:47 12/17/24 08:47 Temperature 98 F Temperature Source Oral Pulse Rate 79 84 Pulse Rate [Left] 89 Respiratory Rate 16 Blood Pressure 211/96 H 189/103 H Blood Pressure [Right Arm] 189/103 H Blood Pressure Mean [Right Arm] 131 Blood Pressure Source [Right Arm] Automatic Cuff Blood Pressure Position [Right Arm] Sitting 02 Sat by Pulse Oximetry 99 99 100 Oxygen Delivery Method Room Air Room Air Room Air 12/17/24 09:17 12/17/24 09:33 Temperature Temperature Source Pulse Rate 68 73 Pulse Rate [Left] Respiratory Rate Blood Pressure 196/103 H 192/95 H Blood Pressure [Right Arm] Blood Pressure Mean [Right Arm] Blood Pressure Source [Right Arm] Blood Pressure Position [Right Arm] 02 Sat by Pulse Oximetry 99 100 Oxygen Delivery Method Room Air Room Air Lab Data Lab Results 12/17/24 09:02: WBC 5.8, RBC 4.86, Hgb 15.0, Hct 44.9, MCV 92.4, MCH 30.9, MCHC 33.4, RDW 13.2, Plt Count 252, MPV 10.3, Neut % (Auto) 82.8 H, Lymph % (Auto) 7.8 L, [place] % (Auto) 8.1, Eos % (Auto) 0.3, Baso % (Auto) 0.7, Neut # (Auto) 4.8, Lymph # (Auto) 0.5 L, [place] # (Auto) 0.5, Eos # (Auto) 0.0, Baso # (Auto) 0.0, Sodium 142, Potassium 3.9, Chloride 99, Carbon Dioxide 30, Anion Gap 16.9 H, BUN 10, Creatinine 0.90, Estimated Creat Clear 34, Estimated GFR 60, Est GFR ( Amer) 73, Glucose 121 H, Calcium 9.4, Total Bilirubin 0.7, AST 38 H, ALT 25, Alkaline Phosphatase 111, Total Protein 7.6, Albumin 4.7, Globulin 2.9, Albumin/Globulin Ratio 1.6, Lipase 127 12/17/24 09:02 12/17/24 09:02 Orders (Tests/Meds): ED MEDICATIONS Generic Name Dose Route Start Last Admin Trade Name Freq PRN Reason Stop Dose Admin Sodium Chloride 8 ml 12/17/24 09:05 Sodium Chloride 0.9% 10ml Vial IV 01/16/25 09:04 NEEDED PRN dilute pepcid Discontinued Medications Generic Name Dose Route Start Last Admin Trade Name Freq PRN Reason Stop Dose Admin Acetaminophen 1,000 mg 12/17/24 09:05 12/17/24 09:14 Acetaminophen 500mg Tab PO 12/17/24 09:06 1,000 mg ONCE ONE Administration Famotidine 20 mg 12/17/24 09:05 12/17/24 09:14 Famotidine 20mg/2ml Vial IV 12/17/24 09:06 20 mg ONCE ONE Administration ORDERS Category Date Time Status Chest XR -- portable [XR chest portable] Stat Exams 12/17/24 09:09 Taken CBC w/Auto Diff [Complete Blood Count Auto Diff] Stat Lab 12/17/24 09:02 Results CMP [Comprehensive Metabolic Panel] Stat Lab 12/17/24 09:02 Results Lipase Stat Lab 12/17/24 09:02 Results Troponin I Q3H Lab 12/17/24 09:02 Results Troponin I Q3H Lab 12/17/24 12:15 Ordered UA [Urinalysis and Microscopic] Stat Lab 12/17/24 09:07 Ordered Medical Decision Narrative: This is an 84-year-old female presenting the emergency department with chronic right upper quadrant and epigastric pain with history of GERD, gastritis, and hiatal hernia. Differential diagnosis includes but is not limited to: Cholecystitis, cholelithiasis, choledocholithiasis, hiatal hernia, gastritis, peptic ulcer disease, referred pain, atypical chest pain On initial assessment, the patient is hypertensive with systolics in the 180s and diastolics in the low 100s. No concurrent tachycardia. Saturating well on room air. Awake, alert, oriented, and appears in no acute distress. I reviewed her medical record, she has had multiple CT scans within the past month that have showed perigastric stranding that could be consistent with gastritis. She did have a gallbladder ultrasound on 12/14/2024 that showed no signs of cholecystitis or cholelithiasis. I have reviewed her medication list. Her list that she brings with her does not include any Pepcid or PPI. It appears she has been prescribed pantoprazole in the past. She would likely benefit from being on both of these medications daily. At this point in time, I will proceed with laboratory evaluation and hold off on any further imaging. I will plan to treat symptoms with Tylenol and Pepcid. Critical Care Critical Care Time Critical Care Time: No
[2024-12-17] MEDS: FAMOTIDINE 20MG/2ML VIAL 20 MG IV (09:14)
[2024-12-17] MEDS: ACETAMINOPHEN 500MG TAB 1000 MG PO (09:14)
[2024-12-17 09:17] VITALS: BP 196/103; PULSE 68; O2SAT 99
[2024-12-17 09:19] LABS: Hematocrit 44.9 % (37.0-47.0); Hemoglobin 15.0 g/dL (12.2-16.2); Immature Granulocytes % 0.3 %; Mean Corpuscular HGB Conc 33.4 g/dL (31.8-35.4); Mean Corpuscular Hemoglobin 30.9 pg (27.0-31.2); Mean Corpuscular Volume 92.4 fl (81-99); Nucleated Red Blood Cells % 0 %; Platelet Count 252 K/mm3 (142-424); Red Blood Count 4.86 M/mm3 (4.20-5.40); Red Cell Distribution Width-SD 44.8 fL; White Blood Count 5.8 K/mm3 (4.8-10.8)
[2024-12-17 09:33] VITALS: BP 192/95; PULSE 73; O2SAT 100
[2024-12-17 09:51] LABS: Alanine Aminotransferase 25 U/L (12-78); Albumin Level 4.7 g/dl (3.5-5.0); Albumin/Globulin Ratio 1.6 (1.1-1.8); Alkaline Phosphatase 111 U/L (38-126); Anion Gap 16.9 mEq/L (5-15); Aspartate Amino Transferase 38 U/L (14-36); Bilirubin,Total 0.7 mg/dl (0.2-1.3); Blood Urea Nitrogen 10 mg/dl (7-17); Calcium 9.4 mg/dl (8.4-10.2); Carbon Dioxide 30 mmol/L (22.0-30.0); Chloride 99 mmol/L (98-107); Creatinine Clearance Estimated 34 mL/min (50-200); Creatinine,Serum 0.90 mg/dl (0.52-1.04); Estimated Glomerular Filt Rate 60 ml/min (>60); GFR (African American) 73 ML/MIN (>60); Globulin 2.9 g/dL (1.3-3.2); Glucose 121 mg/dl (74-100); Lipase 127 U/L (23-300); Potassium 3.9 mmoL/L (3.5-5.1); Sodium 142 mmol/L (136-145); Total Protein,Serum 7.6 g/dl (6.3-8.2)
[2024-12-17 10:01] VITALS: BP 157/88; PULSE 62; O2SAT 100
[2024-12-17 10:17] LABS: Troponin I < 0.01 ng/ml (0.00-0.034)
[2024-12-17 10:52] VITALS: BP 157/88; PULSE 62; RESP 16; TEMP 36.7; O2SAT 100
[2024-12-17 11:30] LABS: Total Cells Counted 100
[2024-12-17 11:31] LABS: RBC Morphology Normal
== END 2024-12-17 10:55 | disposition home or self-care (01) ==
PROVIDERS: Emergency Provider Student in an Organized Health Care Education/Training Program; PCP Internal Medicine Adolescent Medicine
DX: R10.13 Epigastric pain (principal); K29.70 Gastritis, unspecified, without bleeding
CPT/HCPCS: 71045; 80053; 83690; 84484; 85007; 85025; 93005; 96374; 99284; 99285; J1308

== ENCOUNTER 2024-12-22 08:31 | Outpatient (CLI) | payer MEDICARE, SELFPAY ==
--- OUTSIDE RECORDS SUMMARY | 2024-10-19 05:15 | XMS_ITS ---
Author Organization [facility] Address [address] [place] [address] Care Team Providers Care Senior Patient Account Representative Name Role Phone Thomas Queen Primary Care Provider Thomas Queen Unavailable Unavailable REASON FOR VISIT bp ck Encounters Encounter Location Date Provider Diagnosis [address] [address] 10/19/2024 Thomas Queen Plan Of Treatment No Information Progress Notes * Dahlia AMADOhDOB: 3 (84 yo F)Acc No.[id number]:10/19/2024 Progress Notes Patient: Peggy CURIEL Provider: Cait Queen MD :1940 A ge:84 Y S ex:Female Date:10/19/2024 Address:[address], [id number] Subjective: * Chief Complaints: * 1 . Bp ck. * Medical History: Objective: * Vitals: Assessment: Plan: * Treatment: * * Electronic signature of Sidney Queen MD FAAP on 12/22/2024 at 08:37 AM EDT Sign off status: Pending * Provider: Cait Queen MD Date: 0 10/19/2024 Generated for Printi ng/Faxing/eTransmitting on: 1 08:37 AM EDT
--- OUTSIDE RECORDS SUMMARY | 2024-12-11 05:30 | XMS_ITS ---
Author Organization [facility] Address [address] [facility] [address] [place] [address] Care Team Providers Care Grinder Mill Operator Name Role Phone Thomas Queen Primary Care Provider Thomas Queen Unavailable Unavailable Larissa Reynolds Unavailable [phone] Allergies Allergen (clinical drug ingredient) Drug/Non Drug [...] 12/11/2024 Encounters Encounter Location Date Provider Diagnosis [facility] [address] [place] [address] 12/11/2024 Larissa Reynolds Flank pain, right side [...] Week, Reason: F /u on flank pain Progress Notes * Dahlia MCBRIDEhDOB: 3 (84 yo F)Acc No.[id number]:12/11/2024 Progress Notes Patient: Peggy CURIEL Provider: LUIS EDUARDO Biggs :1940 A ge:84 Y S ex:Female Date:12/11/2024 Address:[address] [place] [address] [phone] Pcp:Thomas Queen Subjective: * Chief Complaints: * [...] WOW (Performed Date - 12/12/2024)* Case # [id number]- No auth r equired for CPT 32654 [facility] Segura 12/12/2024 09:16:51 AM EDT >Larissa Reynolds 12/12/2024 01:58:24 PM EDT > Please inform pt that there were no acute abnormalities. Still some concern for inflammation of the stomach (gastritis). Please confirm that she has a F/U with me. Thank you!Shawn Segura R 12/12/2024 02:50:42 PM EDT > Shawn Jefferson R 12/12/2024 02:55:04 PM EDT > pt [...] Biggs Date: Generated for Marine collins/Kasandra/Brandonitting on: 08:37 AM EDT History and Physical Notes * [...]
--- OUTSIDE RECORDS SUMMARY | 2024-12-13 08:15 | XMS_ITS ---
Author Organization [facility] Address [address] [place] [address] Care Team Providers Care Supervisor Calibration Name Role Phone Thomas Queen Primary Care Provider [phone] Thomas Queen Unavailable Unavailable Ursula Arroyo Unavailable [phone] Allergies Allergen (clinical drug ingredient) Drug/Non Drug Allergy documented on EMR Reaction Allergy Type Onset Date Status ciprofloxacin Cipro Unknown Drug Allergy Act aj Results Component Value Reference Range Notes Ultrasound : Gallbladder Reviewed date:12/15/2024 12:02:23 PM Interpretation: Performing Lab: Notes/Report: M-Lipase Reviewed date:12/13/2024 03:35:17 PM Interpretation: Performing Lab: Notes/Report: LIP 150 23-300 U/L M-Amylase Reviewed date:12/13/2024 03:35:17 PM Interpretation: Performing Lab: Notes/Report: DILLON 96 30-110 U/L M-Comprehensive Metabolic Pa chi Reviewed date:12/13/2024 03:35:17 PM Interpretation: Performing Lab: Notes/Report: NA 143 136-145 mmol/L K 4.3 3.5-5.1 mmoL/L CL 100 98-107 mmol/L CO2 34 22.0-30.0 mmol/L GAP 13.3 5-15 mEq/L BUN 14 7-17 mg/dl CREATT 0.90 0.52-1.04 mg/dl GFRAA 73 >60 ML/MIN EGFR 60 >60 ml/min GLU 76 74-100 mg/dl CA 10.0 8.4-10.2 mg/dl BILIT 0.6 0.2-1.3 mg/dl AST 37 14-36 U/L ALT 23 12-78 U/L TP 7.5 6.3-8.2 g/dl ALB 4.7 3.5-5.0 g/dl GLOB 2.8 1.3-3.2 g/dL AGRATIO 1.7 1.1-1.8 ALP 87 38-126 U/L M-Complete Blood Count Auto Diff Reviewed date:12/13/2024 03:35:17 PM Interpretation: Performing Lab: Notes/Report: WBC 5.7 4.8-10.8 K/mm3 RBC 4.76 4.20-5.40 M/mm3 HGB 14.5 12.2-16.2 g/dL HCT 44.3 37.0-47.0 % MCV 93.1 81-99 fl MCH 30.5 27.0-31.2 pg MCHC 32.7 31.8-35.4 g/dL RDW 13.1 11.5-17.5 % PLT 290 142-424 K/mm3 MPV 10.1 7.4-10.4 fl NE% 74.6 37.0-80.0 % LY% 13.2 10-50 % MO% 10.9 1.7-9.3 % EO% 0.4 0.1-12.0 % BA% 0.7 0.1-2.0 % NE# 4.2 1.8-7.8 K/mm3 LY# 0.8 0.7-4.5 K/mm3 MO# 0.6 0.1-1.0 K/mm3 EO# 0.0 0.0-0.4 Kmm3 BA# 0.0 0-0.2 K/mm3 RDW-SD 45.0 NRBC% 0 IG% 0.2 NRBC# 0 IG# 0.01 REASON FOR VISIT Severe Pain- Can't Sleep Medications Medication SIG (Take, Route, Frequency, Duration) Notes Start Date End Date Status Tylenol 325 MG 1 tablet as needed Orally every 6 hrs Active Clopidogrel Bisulfate 75 MG 1 tablet Orally Once a day Active Rosuvastatin Calcium 10 MG 1 tablet Orally Once a day Active Xarelto 10 MG TAKE 1 TABLET DAILY at bedtime; Duration: 90 days Active Synthroid 50 MCG 1 tab(s) orally once a day; Duration: 90 days BRAND NAME ONLY 11/03/2022 Active MYLANTA COAT AND COOL 1200 MG-270 MG-80 MG/10 ML 10 ML ORALLY 1-2 times a day Active amLODIPine Besylate 2.5 MG 1 tab(s) orally twice a day Active Vital Signs Temperature 97.8 degrees Fahrenheit 12/14/19 25 Blood pressure systolic 146 mm Hg 12/14/19 25 Blood pressure diastolic 92 mm Hg 025 Heart Rate 72 /min 12/13/2024 Height 5 ft 2 in in 12/13/2024 Weight 106 lbs 12/13/2024 BMI 19.39 kg/m2 12/13/2024 Encounters Encounter Location Date Provider Diagnosis [facility] [address] [place] [address] 12/13/2024 Ursula Arroyo Right upper quadrant pain R10.11 Assessments Encounter Date Diagnosis (ICD Code) Assessment Notes Treatment Notes Treatment Clinical Notes Section Notes 12/13/2024 Right upper quadrant pain (ICD-10 - R10.11) Exam and symptoms concerning for GB disease Labs unremarkable No fat diet, supportive care, warm compresses, Tylenol prn GB US scheduled for tomorrow. Urgent return precautions discussed Plan Of Treatment Treatment Notes Assessment Notes Right upper quadrant pain Exam and symptoms concerning for GB disease Labs unremarkable No fat diet, supportive care, warm compresses, Tylenol prn GB US scheduled for tomorrow. Urgent return precautions discussed Next Appt Details Follow Up: prn, Reason: Progress Notes * Dahlia MCBRIDEhDOB: 3 (84 yo F)Acc No.[id number]:12/13/2024 Progress Notes Patient: Peggy CURIEL Provider: Brittney Arroyo APRN :1940 A ge:84 Y S ex:Female Date:12/13/2024 Address:[address] [place] [address] [id number] Pcp:Thomas Queen Subjective: * Chief Complaints: * 1 . Severe Pain- Can't Sleep. * HPI: g en: 84 y/o female presents for FU on RUQ pain. Seen yesterday, CT abd - no acute pathology. Reports RUQ pain, radiates to back. No aggravating or alleviating factors. No fevers. No urinary symptoms. + nausea, denies V/D/C. * ROS: C ARDIOLOGY: Reviewed, No Symptoms Reported: Y es. C ONSTITUTIONAL: no L oss of appetite. n o F ever. D ERMATOLOGY: no R álvaro. N EUROLOGY: no H eadache. n o D izziness. U ROLOGY: Reviewed, No Symptoms Reported: Y es. * Medical History: H ypothyroidism, PE (05/16/2021), [...] TAKE 1 TABLET DAILY at bedtime , Discontinued NexIUM 20 MG Capsule Delayed Release 1 capsule 1/2 to 1 hour before morning meal Orally Once a day , Medication List reviewed and reconciled with the patient * Allergies: C ipro. Objective: * Vitals: N urse: aw, Pain: 7, Temp: 97.8, RR: 18, HR: 72, BP: 146/92, Ht: 5 ft 2 in, Wt: 106, BMI:19.39. * Examination: G eneral Examination: General P leasant and Cooperative, NAD on RA,. Chest: n ormal shape and expansion. Heart: R egular Rate and Rhythm, no murmur, rubs or gallops. Lungs: L CTAB, No wheezes, crackles or rhonchi, Good air movement,. Abdomen: S oft, RUQ and epigastric tenderness, no rebound, slightly guarded, ND, BSNA, No organomegaly or peritoneal signs.. neck s upple,, no thyromegaly,, no lymphadenopathy,. Psych N ormal Mood/Affect. Assessment: * Assessment: 1. R ight upper quadrant pain - R10.11 (Primary) Plan: * Treatment: Value Reference Range W alexi Blood Count 5.7 4.8-10.8 - K/mm3 * R ed Blood Count 4.76 4.20-5.40 - M/mm3 * H emoglobin 14.5 12.2-16.2 - g/dL * H ematocrit 44.3 37.0-47.0 - % * M juanjo Corpuscular Volume 93.1 81-99 - fl * M juanjo Corpuscular Hemoglobin 30.5 27.0-31.2 - p g * M juanjo Corpuscular HGB Conc 32.7 31.8-35.4 - g/d L * R ed Cell Distribution Width 13.1 11.5-17.5 - % * P latelet Count 290 142-424 - K/mm3 * M juanjo Platelet Volume 10.1 7.4-10.4 - fl * N eutrophils % 74.6 37.0-80.0 - % * L ymphocytes % 13.2 10-50 - % * M onocytes % 10.9 H 1.7-9.3 - % * E osinophils % 0.4 0.1-12.0 - % * B asophils % 0.7 0.1-2.0 - % * N eutrophils # 4.2 1.8-7.8 - K/mm3 * L ymphocytes # 0.8 0.7-4.5 - K/mm3 * M onocytes # 0.6 0.1-1.0 - K/mm3 * E osinophils # 0.0 0.0-0.4 - Kmm3 * B asophils # 0.0 0-0.2 - K/mm3 * Ursula Arroyo 12/14/19 02:51:55 PM EDT > labs look good Lo Becker 12/13/2024 03:35:10 PM EDT > Patient informed ?LAB: M-Comprehensive Metabolic Panel (Collection Date & Time - 12/13/2024 12:57 PM)* Value Reference Range S odium 143 136-145 - mmol/L * P otassium 4.3 3.5-5.1 - mmoL/L * C hloride 100 98-107 - mmol/L * C arbon Dioxide 34 H 22.0-30.0 - mmol/L * A nion Gap 13.3 5-15 - mEq/L * B lood Urea Nitrogen 14 7-17 - mg/dl * C reatinine,Serum 0.90 0.52-1.04 - mg/dl * G FR () 73 >60 - ML/MIN * E stimated Glomerular Filt Rate 60 >60 - ml/m in * G lucose 76 74-100 - mg/dl * C alcium 10.0 8.4-10.2 - mg/dl * B ilirubin,Total 0.6 0.2-1.3 - mg/dl * A spartate Amino Transferase 37 H 14-36 - U/L * A lanine Aminotransferase 23 12-78 - U/L * T otal Protein,Serum 7.5 6.3-8.2 - g/dl * A lbumin Level 4.7 3.5-5.0 - g/dl * G lobulin 2.8 1.3-3.2 - g/dL * A lbumin/Globulin Ratio 1.7 1.1-1.8 - * A lkaline Phosphatase 87 38-126 - U/L * Ursula Arroyo 12/14/19 02:51:55 PM EDT > labs look good Lo Becker L 12/13/2024 03:35:10 PM EDT > Patient informed ?LAB: M-Amylase (Collection Date & Time - 12/13/2024 12:57 PM)* Value Reference Range A mylase 96 30-110 - U/L * Ursula Arroyo 12/14/19 02:51:55 PM EDT > labs look good Lo Becker L 12/13/2024 03:35:10 PM EDT > Patient informed ?LAB: M-Lipase (Collection Date & Time - 12/13/2024 12:57 PM)* Value Reference Range L ipase 150 23-300 - U/L * Ursula Arroyo 12/14/19 02:51:55 PM EDT > labs look good Lo Becker 12/13/2024 03:35:10 PM EDT > Patient informed ?Imaging: Ultrasound : Gallbladder* Nayely Ramirez 12/13/2024 12:32:30 PM EDT > No auth requiredThis DI was reviewed by Shawn Segura on 12/15/2024 at 12:02 PM EDT * Notes: Exam and symptoms concerning for GB disease Labs unremarkable No fat diet, supportive care, warm compresses, Tylenol prn GB US scheduled for tomorrow. Urgent return precautions discussed?? * Follow Up: p rn * * Sign off status: Completed true * Provider: Brittney Arroyo APRN Date: Generated for Marine collins/Kasandra/eTransmitting on: 08:36 AM EDT History and Physical Notes * HPI (History of Present Illness) Category Sub-Category Detail Notes Category Not es gen 84 y/o female p resents for FU on RUQ pain. Seen yesterday, CT abd - no acute pathology. Reports RUQ pain, radiates to back. No aggravating or alleviating factors. No fevers. No urinary symptoms. + nausea, denies V/D/C. Examination Category Sub-Category Detail Notes Category Not es General Examination Heart: Regular Rate and Rhythm, no murmur, rubs or gallops Lungs: LCTAB, No wheezes, c rackles or rhonchi, Good air movement, Abdomen: Soft, RUQ and epigas tric tenderness, no rebound, slightly guarded, ND, BSNA, No organomegaly or peritoneal signs. Chest: normal shape and exp ansion neck supple,, no thyromeg angela,, no lymphadenopathy, General Pleasant and Coopera tive, NAD on RA, Psych Normal Mood/Affect
--- OUTSIDE RECORDS SUMMARY | 2024-12-15 07:30 | XMS_ITS ---
Author Organization [facility] K[facility]Y D AR[facility] Address [address] [place] [address] Care Team Providers Care Jackscrew Worker Name Role Phone Thomas Queen Primary Care Provider Thomas Queen Unavailable Unavailable Ursula Arroyo Unavailable [phone] Allergies Allergen (clinical drug ingredient) Drug/Non Drug Allergy documented on EMR Reaction Allergy Type Onset Date Status ciprofloxacin Cipro Unknown Drug Allergy Act aj Reason For Referral Reason HIDA scan Diagnosis 1 Right upper quadrant pain (R10.11) Referral Organization [facility] Referring Provider First Name Ursula Referring Provider Last Name Cruz Referring Provider Speciality Family [facility] General Notes Ilan Vogt 12/2024 03:13:33 PM > faxed and they will call pt Referral Priority Stat REASON FOR VISIT Very bad back/gallbladder pain, feels like a knife stabbing her, did US of gallbladder at [facility] yesterday Medications Medication SIG (Take, Route, Frequency, Duration) [...] 1 tab(s) orally twice a day Active traMADol HCl 50 MG 1 tablet as needed Orally every 8 hrs; Duration: 7 days As needed 12/15/2024 Active Tylenol 325 MG 1 tablet as needed Orally every 6 hrs Active Clopidogrel Bisulfate 75 MG 1 tablet Orally Once a day Active Rosuvastatin Calcium 10 MG 1 tablet Orally Once a day Active Vital Signs Temperature 98 degrees Fahrenheit 12/15/2024 Blood pressure systolic 125 mm Hg 12/16/19 25 Blood pressure diastolic 84 mm Hg 025 Heart Rate 68 /min 12/15/2024 Height 5 ft 2 in in 12/15/2024 Weight 105.8 lbs 12/15/2024 BMI 19.35 kg/m2 12/15/2024 Encounters Encounter Location Date Provider Diagnosis [facility] [address] [address] 12/15/2024 Ursula McNees Right upper quadrant pain R10.11 and Acute gastritis without hemorrhage, unspecified gastritis type K29.00 Assessments Encounter Date Diagnosis (ICD Code) Assessment Notes Treatment Notes Treatment Clinical Notes Section Notes 12/15/2024 Right upper quadrant pain (ICD-10 - R10.11) Exam is still concerning for GB disease despite unremarkable US and CT scan. Will obtain HIDA scan. Labs on Wed unremarkable. Restart nexium as gastritis could be contributing. Tramadol PRN severe pain pending HIDA scan next week. 12/15/2024 Acute gastritis without hemorrhage, unspecified gastritis type (ICD-10 - K29.00) Plan Of Treatment Medication Medication Name Sig Start Date Stop Date Notes traMADol HCl 50 MG 1 tablet as needed O rally every 8 hrs; Duration: 7 days 12/15/2024 Treatment Notes Assessment Notes Right upper quadrant pain Exam is still concerning for GB disease despite unremarkable US and CT scan. Will obtain HIDA scan. Labs on Wed unremarkable. Restart nexium as gastritis could be contributing. Tramadol PRN severe pain pending HIDA scan next week. Pending Test Test Name Order Date HIDA scan 12/15/2024 Referrals Referral Date Details 12/15/2024 12/15/2024, HIDA sca n Next Appt Details Follow Up: prn, Reason: Progress Notes * ANEUDYDahlia SANTAMARIAhDOB: 3 (84 yo F)Acc No.[id number]:12/15/2024 Progress Notes Patient: Peggy CURIEL Provider: Brittney Arroyo APRN :1940 A ge:84 Y S ex:Female Date:12/15/2024 Address:[place], [place], [id number] Pcp:Thomas Queen Subjective: * Chief Complaints: * 1 . Very bad back/gallbladder pain, feels like a knife stabbing her. 2. did US of gallbladder at [facility] yesterday. * HPI: G astroenterology: 84 year old female presents with c/o abdominal pain. c/o heartburn. c/o nausea. Denies : reflux to mouth. D enies : vomiting. D enies : constipation. D enies : diarrhea. D enies : fever. D enies : abdominal distension. D enies : blood in stool. Presents with persistent RUQ pain. Onset on Wednesday. CT abd- possible gastritis, no acute finding. Labs and GB US unremarkable. Reports pain is constant, maybe worse when she eats. Radiates through to back. No change with movement. Back is nontender. Abd feels tender. No fevers. No urinary symptoms. Stopped taking Nexium a few days prior to onset of pain. * ROS: C ARDIOLOGY: Reviewed, No Symptoms Reported: Y es. C ONSTITUTIONAL: no L oss of appetite. n o F ever. G ASTROENTEROLOGY: See HPI Y es. N EUROLOGY: Memory loss yes. U ROLOGY: Reviewed, No Symptoms Reported: Y [...] Objective: * Vitals: N urse: dw, Pain: 8, Temp: 98, RR: 18, HR: 68, BP: 125/84, Ht: 5 ft 2 in, Wt: 105.8, BMI:19.35. * Examination: G eneral Examination: General P leasant and Cooperative, NAD on RA, Does not appear acutely ill. Heart: R egular Rate and Rhythm, no murmur, rubs or gallops. Lungs: c lear to auscultation. Abdomen: S oft, RUQ and epigastric tenderness, somewhat guarded on right, no rebound, ND, BSNA, No organomegaly or peritoneal signs.. Neurologic Exam: N ormal gait and station. Alert and oriented to person place and time. No focal signs.. Back: n o midline or paraspinal muscle tenderness mid-low back. Psych N ormal Mood/Affect . Assessment: * Assessment: 1. R ight upper quadrant pain - R10.11 (Primary) 2 . A cute gastritis without hemorrhage, unspecified gastritis type - K29.00 Plan: * Treatment: Notes: Exam is still concerning for GB disease despite unremarkable US and CT scan. Will obtain HIDA scan. Labs on Wed unremarkable. Restart nexium as gastritis could be contributing. Tramadol PRN severe pain pending HIDA scan next week. ? Referral To: ?Reason:HIDA scan * Follow Up: p rn * * Sign off status: Completed true * Provider: Brittney Arroyo APRN Date: Generated for Marine collins/Kasandra/Sarah on: 08:37 AM EDT History and Physical Notes * HPI (History of Present Illness) Category Sub-Category Detail Notes Category Not es Gastroenterology fever Presents wi th persistent RUQ pain. Onset on Wednesday. CT abd- possible gastritis, no acute finding. Labs and GB US unremarkable. Reports pain is constant, maybe worse when she eats. Radiates through to back. No change with movement. Back is nontender. Abd feels tender. No fevers. No urinary symptoms. Stopped taking Nexium a few days prior to onset of pain vomiting abdominal pain diarrhea blood in stool nausea constipation abdominal distension heartburn reflux to mouth Examination Category Sub-Category Detail Notes Category Not es General Examination Heart: Regular Rate and Rhythm, no murmur, rubs or gallops Lungs: clear to auscultatio n Abdomen: Soft, RUQ and epigas tric tenderness, somewhat guarded on right, no rebound, ND, BSNA, No organomegaly or peritoneal signs. Neurologic Exam: Normal gait and stat ion. Alert and oriented to person place and time. No focal signs. Back: no midline or parasp inal muscle tenderness mid-low back General Pleasant and Coopera tive, NAD on RA, Does not appear acutely ill Psych Normal Mood/Affect Consultation Request Notes Referral Date Referring Provider Referred Provider Not es 12/15/2024 Ursula Arroyo HIDA scan
--- OUTSIDE RECORDS SUMMARY | 2024-12-19 10:30 | XMS_ITS ---
Author Organization [facility] Address [address] [place] [address] Care Team Providers Care Online Content Developer Name Role Phone Thomas Queen Primary Care Provider Thomas Queen Unavailable Unavailable Larissa Reynolds Unavailable [phone] REASON FOR VISIT 1 wk FU Encounters Encounter Location Date Provider Diagnosis [facility] [address] [place], [place] [address] 12/19/2024 Larissa Reynolds Plan Of Treatment No Information Progress Notes * Indy AMADOOB: 3 (84 yo F)Acc No.[id number]:12/19/2024 Progress Notes Patient: Peggy CURIEL Provider: LUIS EDUARDO Biggs :1940 A ge:84 Y S ex:Female Date:12/19/2024 Address:[address], [id number] Pcp:Thomas Queen Subjective: * Chief Complaints: * 1 . 1 wk FU. * Medical History: Objective: * Vitals: Assessment: Plan: * Treatment: * * Electronic signature of Hank Reynolds PA-C on 12/22/2024 at 08:37 AM EDT Sign off status: Pending * Provider: LUIS EDUARDO Biggs Date: 1 Generated for Printi ng/Fadimitriosg/eTransmitting on: 1 08:37 AM EDT
--- NOTE | 2024-12-22 | NM_ITS ---
FINAL REPORT CLINICAL HISTORY: RUQ PAIN, 9:05AM 8.39mci Tc Choletec 1MCG CCk inj. into rt ant Pt did complain of pain with CCK COMPARISON: None FINDINGS: Sequential anterior projection images of the abdomen were obtained after the intravenous injection of 8.39 mCi technetium 99m Choletec. There is normal uptake of radiotracer by the liver. The bile ducts are visualized by 5 minutes. Gallbladder activity is seen after 60 minutes. Bowel activity is noted by 10 minutes. After 1 hour, 1.0 ?g of CCK was injected intravenously for calculation of gallbladder ejection fraction. The gallbladder ejection fraction is 31%, which is low. IMPRESSION: No evidence of cystic duct or bile duct obstruction. Low gallbladder ejection fraction of 31%. Reviewed, Interpreted and Dictated by Onelia Ng MD Transcribed by Traci Liz Authenticated and [facility]
--- OUTSIDE RECORDS SUMMARY | 2024-12-22 08:36 | XMS_ITS | Referral Summary ---
Author Organization [employer] ([place], [place], [place], [place]) Address [address] [place] [address] Care Team Providers Care Belt Builder Name Role Phone Unavailable Primary Care Provider Unavailabl e Social History Tobacco Use Types Packs/Day Years Used Date Smoking Tobacco: Never Assessed Comments Unknown Sex and Gender Information Value Date Recorded Sex Assigned at Not on file Legal Sex Female 6:05 PM CDT Gender Identity Not on file Sexual Orientation Not on file Plan of Treatment Not on file Insurance [facility] MEDICARE ADVANTAGE
--- OUTSIDE RECORDS SUMMARY | 2024-12-22 08:36 | XMS_ITS | Clinical Summary ---
Author Organization [employer] ([place], [place], [place], [place]) Address [address] [place] [address] Care Team Providers Care Flight Kitchen Manager Name Role Phone Unavailable Primary Care Provider Unavailabl e Social History Tobacco Use Types Packs/Day Years Used Date Smoking Tobacco: Never Assessed Comments Unknown Sex and Gender Information Value Date Recorded Sex Assigned at Not on file Legal Sex Female 6:05 PM CDT Gender Identity Not on file Sexual Orientation Not on file Plan of Treatment Not on file Insurance [facility] MEDICARE ADVANTAGE
--- OUTSIDE RECORDS SUMMARY | 2024-12-22 08:37 | XMS_ITS | Patient Health Record ---
Author Organization [facility] Address [address] [place] [address] Care Team Providers Care Paint Brush Maker Name Role Phone Thomas Queen Primary Care Provider [phone] Thomas Queen Unavailable Unavailable Fay Carballo Unavailable [phone] Ursula Arroyo Unavailable [phone] Fay Thomas Unavailable [phone] Migration, Provider Unavailable Unavailable Larissa Reynolds Unavailable [phone] Allergies Allergen (clinical drug ingredient) Drug/Non Drug [...] Reviewed date:12/29/2023 07:58:19 AM Interpretation: Performing Lab:NIL[facility] [employer] [id number] [employer] [facility] [place] IhcvXE[address] Toni Rosen Notes/Report: NON-FASTING; NON-FASTING T3 UPTAKE 33 22-35 % T4 (THYROXINE), TOTAL 7.2 5.1-11.9 mcg/dL FREE T4 INDEX (T7) 2.4 1.4-3.8 TSH 3.50 0.40-4.50 mIU/L LIPID PANEL, STANDARD (7600) Reviewed date:06/26/2024 12:55:44 PM Interpretation: Performing Lab:[facility] [employer] Mrdf3506 [employer].teSaint Barnabas Behavioral Health [facility], Lake Region HospitalHyhhLQ[address] Toni Rosne Notes/Report: FASTING: YES FASTING:YES NON-FASTING; NON-FASTING; NON-FASTING; [...] LDL-C. Davis GONSALVES et al. ALONDRA. 2013;310(19): 1399-6092 (http://education.[employer]/faq/FAQ16 4) CHOL/HDLC RATIO 2.7 <5.0 (calc) NON HDL CHOLESTEROL 130 <130 mg/dL (calc) For patients with diabetes plus 1 major ASCVD risk factor, treating to a non-HDL-C goal of <100 mg/dL (LDL-C of <70 mg/dL) is considered a therapeutic option. COMPREHENSIVE METABOLIC PANE L (52658) Reviewed date:06/26/2024 12:55:44 PM Interpretation: Performing Lab:NILS Bazaarvoicee1355 [facility] CenterBerylliumSaint Barnabas Behavior[facility], Lake Region HospitalHzhmXD[address] Toni Rosen Notes/Report: NON-FASTING; NON-FASTING; NON-FASTING; NON-FASTING [...] ALT 17 6-29 U/L BASIC METABOLIC PANEL (02237 ) Reviewed date:12/29/2023 07:58:19 AM Interpretation: Performing Lab:NIL[facility] [employer] ([employer]etary)[facility] Homee1355 CaptureProofSaint Barnabas Behavior[facility], [facility] Region HospitalYtjhVG[address] Toni Rosen Notes/Report: NON-FASTING; NON-FASTING GLUCOSE 111 [...] Reviewed date:06/26/2024 12:55:44 PM Interpretation: Performing Lab:[facility]IL[facility] [employer] Xrrl2236 [address] [employer], Lake Region HospitalLhdcVD[address] Toni Rosen Notes/Report: NON-FASTING; NON-FASTING; NON-FASTING; NON-FASTING [...] MPV 10.8 7.5-12.5 fL ABSOLUTE NEUTROPHILS 4158 9458-4332 cells/uL ABSOLUTE LYMPHOCYTES 533 562-4177 cells/uL ABSOLUTE MONOCYTES 448 200-950 cells/uL ABSOLUTE EOSINOPHILS 49 15-500 cells/uL ABSOLUTE BASOPHILS 49 0-200 cells/uL NEUTROPHILS 77 LYMPHOCYTES 12.9 MONOCYTES 8.3 EOSINOPHILS 0.9 BASOPHILS 0.9 TSH W/REFLEX TO FT4 (64102) Reviewed date:06/26/2024 12:55:44 PM Interpretation: Performing Lab:NIL[facility] [employer] [address], Lake Region HospitalDchdEL[address] Toni Rosen Notes/Report: NON-FASTING; NON-FASTING; NON-FASTING; NON-FASTING FASTING:YES FASTING: YES TSH W/REFLEX TO FT4 4.50 0.40-4.50 mIU/L [employer], EIA, STOOL (71886) Reviewed date:07/27/2024 12:33:32 PM Interpretation: Performing Lab:NILS [employer] ([employer]roprietary)-MaxLineare[address], Lake Region HospitalBqwrOG[address] Toni Rosen Notes/Report: NON-FASTING [employer], EIA, STOOL SEE NOTE [employer], EIA, STOOL Micro Number: [id number] Test Status: Final Specimen Source: Stool Specimen [...] 1 Epigastric pain (R10 .13) Referral Organization [facility]PER Referring Provider First Name Ursula Referring Provider Last Name Cruz Referring Provider Speciality [facility] Referred Organization [facility] Referred Address [address],[address], Referred Provider Specialty Gastroentero logy General Notes Naeyly Manley 2024 12:04:31 PM >, Nayely Manley 06/23/2024 12:07:04 PM >sent to Dr. Wiley Referral Priority Routine Reason Dr. John Alanis at for egd... has seen before Diagnosis 1 Gastroesophageal ref lux disease with esophagitis without hemorrhage (K21.00) Referral Organization [facility] MAXIMUS RG Referring Provider First Name Thomas Referring Provider Last Name Bret Referring Provider Speciality Internal edicine Referred Organization [facility] Referrals Referred Address [address] [facility] [place],[address] Referred Provider Specialty Gastroentero logy General Notes Nayely Manley 2024 12:04:12 PM >sent to , Nayely Manley 08/08/2024 09:22:29 AM >sent again Referral Priority Urgent Reason Dr. Locke Diagnosis 1 Abnormal stress test (R94.39) Referral Organization [facility] Referring Provider First Name Thomas Referring Provider Last Name Bret Referring Provider Speciality Internal M edicine Referred Organization [facility] Referred Address [address] [place], [place],[address], Referred Provider Specialty Cardiovascul ar Disease General Notes Nayely Manley 2024 04:02:10 PM >sent to Dr. Locke at [facility] Referral Priority Routine Reason Please set up CTA of coronary arteries at [facility] if possible-questionably abnormal nuclear stress test Diagnosis 1 Encounter for screen ing for coronary artery disease (Z13.6) Referral Organization [facility] Referring Provider First Name Thomas Referring Provider Last Name Bret Referring Provider Speciality Internal M edicine Referred Organization [facility] Referred Address [address] [facility] [address] [facility] [place],[address], Referred Provider Specialty Diagnostic R adiology General Notes Ilan Vogt 05/2024 02:20:55 PM > faxed to [facility] and they will call pt- [place] does not do them, Nayely Manley 09/11/2024 09:14:11 AM >Scheduled at [facility] 09-12-24 at 10- be there at 9. No caffeine 12 hours prior including chocolate. Nothing to eat or drink 2 hours before, except for water. Can take BP meds in the am if needed., Nayely Manley 09/11/2024 09:16:33 AM >Left a VM with patient Referral Priority Routine Referral Appointment Date 09/12/2024 Reason HIDA scan Diagnosis 1 Right upper quadrant pain (R10.11) Referral Organization [facility] Referring Provider First Name Ursula Referring [...] W/U Status Risk Notes Problem Sore throat (380618559) Sore throat (J02.9) Active confirmed Problem Essential hypertension (43427306) Essential hypertension (I10) Active confirmed Problem Seasonal allergy (907928768) Seasonal allergies (J30.2) Active confirmed Problem Atherosclerotic heart disease of [place] lag[place] coronary artery without angina pectoris (843734074002518) Coronary artery disease involving [place] coronary artery of [place] heart without angina pectoris (I25.10) Active confirmed Problem Acquired hypothyroidism (080090664) Acquired hypothyroidism (E03.9) Active confirmed Problem Generalized anxiety disorder (88033088) LEANDRO (generalized anxiety disorder) (F41.1) Active confirmed Problem Tinnitus of left ear (8699965466794) Left-sided tinnitus (H93.12) Active confirmed Problem Single subsegmental pulmonary embolism without acute cor pulmonale (I26.93) Active confirmed Problem Gastroesophageal reflux disease with esophagitis (disorder) (952139422) Gastroesophageal reflux disease with esophagitis without hemorrhage (K21.00) Active confirmed Problem Gastroesophageal reflux disease (103127604) Gastroesophageal reflux disease, unspecified whether esophagitis present (K21.9) Active confirmed Problem Protein S deficiency (9831533) Protein S deficiency (D68.59) Active confirmed Vital Signs Heart Rate 68 /min 12/15/2024 Temperature 98 degrees Fahrenheit 12/15/2024 Blood pressure diastolic 84 mm Hg 12/15/2024 Height 5 ft 2 in in 12/15/2024 Blood pressure systolic 125 mm Hg 12/15/2024 Weight 105.8 lbs 12/15/2024 BMI 19.35 kg/m2 12/15/2024 Encounters Encounter Location Date Provider Diagnosis [facility] [address] [facility] [address] [place] [address] 06/10/2024 Provider Migration Gastroesophageal reflux disease with esophagitis without hemorrhage K21.00 [facility] [address] [facility] [address] [place] [address] 12/27/2023 Thomas Besson Essential hypertensi on I10 ; Acquired hypothyroidism E03.9 ; Protein S deficiency D68.59 ; Gastroesophageal reflux disease with esophagitis without hemorrhage K21.00 and Immunization(s) administered Z23 [facility] [address] [place] [address] 05/11/2024 Ursula McNees Essential hypertensi on I10 ; Acquired hypothyroidism E03.9 ; Protein S deficiency D68.59 and Gastroesophageal reflux disease with esophagitis without hemorrhage K21.00 [facility] [address] [address] 06/08/2024 Thomas Besson Essential hypertensi on I10 and Gastroesophageal reflux disease with esophagitis without hemorrhage K21.00 [facility] [address] [place] [address] 06/22/2024 Ursula McNees Essential hypertensi on I10 ; Encounter for Medicare annual wellness exam Z00.00 ; Acquired hypothyroidism E03.9 ; Protein S deficiency D68.59 ; Gastroesophageal reflux disease with esophagitis without hemorrhage K21.00 ; BMI 20.0-20.9, adult Z68.20 ; Epigastric pain R10.13 and Encounter for immunization Z23 [facility] [address] [facility] [address] [place], [place] [address] 07/03/2024 Thomas Queen Infectious diarrhea A09 [facility] [address] [facility] [address] [place], [place] [address] 07/10/2024 Thomas Queen Pain in right leg M79.604 ; Pain in left leg M79.605 and Abdominal pain, generalized R10.84 [facility] [address] [place], [place] [address] 07/20/2024 Fay Bergmanell Left upper quadrant pain R10.12 and Gastroesophageal reflux disease, unspecified whether esophagitis present K21.9 [facility] [address] [place] [address] 08/03/2024 Thomas Besmaylin Gastroesophageal ref lux disease with esophagitis without hemorrhage K21.00 [facility] [address] [place], [place] [address] 08/07/2024 Thomas Besmaylin Gastroesophageal ref lux disease with esophagitis without hemorrhage K21.00 and Essential hypertension I10 [facility] [address] [place] [address] 09/07/2024 Thomas Queen Essential hypertensi on I10 ; Gastroesophageal reflux disease with esophagitis without hemorrhage K21.00 and Encounter for screening for coronary artery disease Z13.6 [facility] [address] [place], [place] [address] 09/27/2024 Thomas Queen Coronary artery dise ase involving big lag[place] coronary artery of [place] heart without angina pectoris I25.10 ; Essential hypertension I10 and Hospital discharge follow-up Z09 [facility] [address] [place] [address] 12/11/2024 Larisas Reynolds Flank pain, right si de R10.A1 [facility] [address] [place] [address] 12/13/2024 Ursula McNees Right upper quadrant pain R10.11 [facility] [address] [place] [address] 12/15/2024 Ursula McNees Right upper quadrant pain R10.11 and Acute gastritis without hemorrhage, unspecified gastritis type K29.00 [facility] [address] [place] [address] 03/22/2024 Fay Carballo [facility] [address] [place] [address] 05/10/2024 Thomasteresita Queen [facility] [address] [facility] [address] [place] [address] 05/11/2024 Ursula McNees [facility] [address] [place] [address] 06/30/2024 Thomas Besson [facility] [address] [place] [address] 07/20/2024 Thomas Besson [facility] [address] [place] [address] 08/02/2024 Thomas Besson [facility] [address] [place] [address] 08/23/2024 Thomas Besson [facility] [address] [place] [address] 09/06/2024 Thomas Besson [facility] [address] [place] [address] 09/22/2024 Thomas Besson [facility] [address] [place] [address] 12/21/2024 Ursula Arroyo Assessments Encounter Date Diagnosis (ICD Code) Assessment Notes Treatment Notes Treatment Clinical Notes Section Notes 12/27/2023 Essential hypertension (ICD-10 - I10) Blood pressure excellent. No changes in plan. Check kidney function. Check TSH to monitor if we need to change therapy at this point. Please note I will review all labs personally 12/27/2023 Acquired hypothyroidism (ICD-10 - E03.9) 05/11/2024 Essential hypertension (ICD-10 - I10) Stop amlodipine to decrease bill burden. RTC in 4-6 weeks for annual wellness/labs 05/11/2024 Acquired hypothyroidism (ICD-10 - E03.9) Continue synthroid 06/22/2024 Essential hypertension (ICD-10 - I10) Blood pressure at goal 06/22/2024 Encounter for Medicare annual wellness exam (ICD-10 - Z00.00) Vaccines- Prevnar, flu and RSV utd Shingrix series started today Aged out for mammogram/colonosco py 07/03/2024 Infectious diarrhea (ICD-10 - A09) Well-hydrated. [...] Pain in left leg (ICD-10 - M79.605) 07/20/2024 Left upper quadrant pain (ICD-10 - [...] trial to see if Dr. Alanis at [facility] is available. She would prefer this [...] in symptoms, no longer taking nightly Mylanta 12/11/2024 Flank pain, right side (ICD-10 - [...] Follow-up in 1 week, sooner if needed. 12/15/2024 Right upper quadrant pain (ICD-10 - [...] 5mg daily 09/27/2024 Coronary artery disease involving [place] lag[place] coronary artery of [place] heart without angina pectoris (ICD-10 - I25.10) - Patient had nuclear stress test with multivessel disease, CTA coronaries confirmed CAD and underwent PCI to RCA with complication of mild dissection and was admitted overnight - Feeling well today, denies SOB or chest pain even prior to procedure - Continue statin, aspirin, clopidigrol and xarelto. Counseled on use - Continue follow up with cardiology 12/13/2024 Right upper quadrant pain (ICD-10 - R10.11) Exam and symptoms concerning for GB disease Labs unremarkable No fat diet, supportive care, warm compresses, Tylenol prn GB US scheduled for tomorrow. Urgent return precautions discussed 06/08/2024 Essential hypertension (ICD-10 - I10) Continue amlodipine 2.5. recommend keeping a blood pressure log over next 2 weeks until next appt. 06/08/2024 Gastroesophageal reflux disease with esophagitis without hemorrhage (ICD-10 - K21.00) start using pepcid every evening for GERD. Can continue mylanta PRN. 09/27/2024 Hospital discharge follow-up (ICD-10 - Z09) [...] given her ongoing Xarelto therapy as well 09/07/2024 Encounter for screening for coronary artery [...] order coronary CTA to evaluate for CAD 07/10/2024 Abdominal pain, generalized (ICD-10 - R10.84) I do not think this is hiatal hernia or epigastric pain per se. Continue Tylenol as noted above. She has an appointment with GI to investigate her history of hiatal hernia. 06/22/2024 Acquired hypothyroidism (ICD-10 - E03.9) Continue synthroid 12/27/2023 Protein S deficiency (ICD-10 - D68.59) Remains on DOAC. No complications. 05/11/2024 Protein S deficiency (ICD-10 - D68.59) Remains on DOAC. No complications. 06/10/2024 Gastroesophageal reflux disease with esophagitis without hemorrhage (ICD-10 - K21.00) 12/27/2023 Gastroesophageal reflux disease with esophagitis without hemorrhage (ICD-10 - K21.00) Discussed needed to take Nexium daily, on an empty stomach and she will do this. I will send a prescription if she has been purchasing this [id number] 05/11/2024 Gastroesophageal reflux disease with esophagitis without [...] 11/22/19 24 CULTURE, URINE, ROUTINE (395) 12/11/2024 Insurance Providers Payer Name Payer Address Payer Phone Subscriber Number Group Number Insured Name Patient Relationship to Insured Coverage Start Date Coverage End Date [employer] [address] [address] [place] [address] [id number] Peggy Mcbride Self - patient is the [...]
--- OUTSIDE RECORDS SUMMARY | 2024-12-22 08:38 | XMS_ITS | Clinical Summary ---
[facility] Address [address] [place] [address] Care Team Providers Care Cutter Operator Asbestos Shingle Name Role Phone Provider, No Known Primary [...] Pneumococcal Vaccine 50+ Completed 07/31/2021, 08/2015 Insurance [facility] Medicare [employer] PPO Care Teams Cutter Operator Asbestos Shingle Relationship Specialty Start Date End Date Provider, No Known [facility] [place] [address] PCP - General 09/27/16
[2024-12-22] MEDS: SODIUM CHLORIDE 0.9% IV (10:41)
[2024-12-22] MEDS: SINCALIDE IV (10:41)
[2024-12-22] MEDS: ISOTOPE CHOLETECH;1 DOSE (UP TO 15 MCI) IV (10:45)
[2024-12-22] MEDS: SODIUM CHLORIDE 0.9% 10ML SYR (RAD ONLY) 10 ML IV (10:46)
== END 2024-12-22 23:59 | disposition home or self-care (01) ==
LOC: RAD 08:32
PROVIDERS: PCP Internal Medicine Adolescent Medicine; Visit Provider Nurse Practitioner Family
DX: R93.2 Abnormal findings on diagnostic imaging of liver and biliary tract (principal); R10.11 Right upper quadrant pain
CPT/HCPCS: 78227; A9537; J2805

== ENCOUNTER 2025-02-21 11:02 | Outpatient (CLI) | payer MEDICARE, SELFPAY ==
--- OUTSIDE RECORDS SUMMARY | 2024-12-19 09:30 | XMS_ITS ---
Author Organization [facility] Address [address] [facility] [address] [place] [address] Care Team Providers Care Senior Bioinformatics Scientist Name Role Phone Thomas Queen Primary Care Provider Thomas Queen Unavailable Unavailable Larissa Reynolds Unavailable [phone] REASON FOR VISIT 1 wk FU Encounters Encounter Location Date Provider Diagnosis [facility] [address] [place] [address] 12/19/2024 Larissa Reynolds Plan Of Treatment No Information Progress Notes * Indy MCBRIDEOB: 3 (84 yo F)Acc No.[id number]:12/19/2024 Progress Notes Patient: Peggy CURIEL Provider: LUIS EDUARDO Biggs :1940 A ge:84 Y S ex:Female Date:12/19/2024 Address:[address], [id number] Pcp:Thomas Queen Subjective: * Chief Complaints: * 1 . 1 wk FU. * Medical History: Objective: * Vitals: Assessment: Plan: * Treatment: * * Electronic signature of Hank Reynolds PA-C on 02/21/2025 at 11:03 AM EST Sign off status: Pending * Provider: LUIS EDUARDO Biggs Date: 1 Generated for Printi ng/Fadimitriosg/eTransmitting on: 1 04/24/2024 11:03 AM EST
[2025-02-21 11:47] LABS: Hematocrit 44.1 % (37.0-47.0); Hemoglobin 14.3 g/dL (12.2-16.2); Immature Granulocytes % 0.2 %; Mean Corpuscular HGB Conc 32.4 g/dL (31.8-35.4); Mean Corpuscular Hemoglobin 30.0 pg (27.0-31.2); Mean Corpuscular Volume 92.5 fl (81-99); Nucleated Red Blood Cells % 0 %; Platelet Count 256 K/mm3 (142-424); Red Blood Count 4.77 M/mm3 (4.20-5.40); Red Cell Distribution Width-SD 47.1 fL; White Blood Count 5.6 K/mm3 (4.8-10.8)
[2025-02-21 12:36] LABS: Albumin Level 4.9 g/dl (3.5-5.0); Chloride 102 mmol/L (98-107); Potassium 4.1 mmoL/L (3.5-5.1); Sodium 140 mmol/L (136-145)
[2025-02-21 12:38] LABS: Blood Urea Nitrogen 14 mg/dl (7-17); Creatinine,Serum 1.00 mg/dl (0.52-1.04); Estimated Glomerular Filt Rate 53 ml/min (>60); GFR (African American) 64 ML/MIN (>60)
[2025-02-21 12:39] LABS: Alanine Aminotransferase 18 U/L (12-78); Alkaline Phosphatase 84 U/L (38-126); Anion Gap 10.1 mEq/L (5-15); Aspartate Amino Transferase 31 U/L (14-36); Bilirubin,Direct 0.0 mg/dl (0.0-0.4); Bilirubin,Indirect 0.6 mg/dL (0.0-0.9); Bilirubin,Total 0.6 mg/dl (0.2-1.3); Bilirubin,Unconjugated 0.6 mg/dL (0.0-1.1); Calcium 9.6 mg/dl (8.4-10.2); Carbon Dioxide 32 mmol/L (22.0-30.0); Cholesterol 154 mg/dl (140-200); Glucose 91 mg/dl (74-100); Magnesium 2.3 mg/dl (1.6-2.3); Total Protein,Serum 7.5 g/dl (6.3-8.2); Triglycerides 134 mg/dl (30-150)
--- OUTSIDE RECORDS SUMMARY | 2025-02-21 12:41 | XMS_ITS | Clinical Summary ---
[facility] Address [address] [place] [address] Care Team Providers Care Call Center Support Consultant Name Role Phone Provider, No Known Primary [...] Pneumococcal Vaccine 50+ Completed 07/31/2021, 08/2015 Insurance [facility] Medicare Ad[employer] PPO Care Teams Call Center Support Consultant Relationship Specialty Start Date End Date Provider, No Known [facility] [place] [address] PCP - General 09/27/16
[2025-02-21 12:52] LABS: Free T4 (Free Thyroxine) 0.99 ng/dl (0.78-2.19)
[2025-02-21 13:01] LABS: HDL Cholesterol 86 mg/dl (40-60)
[2025-02-21 13:12] LABS: Thyroid Stimulating Hormone 2.81 uIU/mL (0.465-4.68)
== END 2025-02-21 23:59 | disposition home or self-care (01) ==
PROVIDERS: PCP Internal Medicine Adolescent Medicine; Visit Provider Physician Assistant
DX: I25.10 Atherosclerotic heart disease of native coronary artery without angina pectoris (principal); I10 Essential (primary) hypertension; E78.49 Other hyperlipidemia
CPT/HCPCS: 36415; 80048; 80061; 80076; 83735; 84439; 84443; 85025